=== PATIENT | female | born 1950 | race Caucasian/White ===

== ENCOUNTER 2018-07-05 06:13 | Day surgery (SDC) | payer BC, SELFPAY ==
[2018-07-05 06:17] VITALS: BP 138/93; PULSE 72; RESP 17; TEMP 36.5; O2SAT 100
--- NOTE | 2018-07-05 06:37 | W.COLOREPORT ---
Date of service: 07/05/18 Colonoscopy Report Date of procedure: 07/05/18 Pre-op diagnosis general: Screening for colon cancer Post-op diagnosis procedure note: other (polyps) Procedure: Colonoscopy with polypectomy by forceps and snare Surgeon: Marga Mg Anesthesia proc note operative: MAC (Suly Hayes CRNA) Estimated blood loss (mL): 5 Pathology: other (polyps x2) Complications: None Disposition: same day Indications: Mrs. Walters is a pleasant 67 year old female who was seen in the office for a screening colonoscopy. Risks, benefits and complications were reviewed with her and she wished to proceed. No guarantees were given or implied. Prep: Miralax/Dulcolax Procedure Start Time: 07:47 Procedure End Time: 08:09 Retraction Time: 17 minutes Findings: 2 polyps removed. One in the sigmoid colon and one in the rectum just above the dentate line Procedure Description: After informed consent was obtained the patient was taken to the procedure room and placed in a left decubitous position. Monitors were applied and a time out was done. The patients name, date of , procedure, allergies to medications and metal in their body was reviewed. The patient was then sedated. Once sedated and comfortable a rectal exam was done. External exam was normal. Internal exam revealed a normal sphincter tone and no palpable masses. The scope was then introduced and retroflexed. No internal hemorrhoids were identified. An adenomatous polyp was identified just above the dentate line. The scope was straightened and then advanced to the cecum without difficulty. The TI and appendiceal orifice were identified. The prep was adequate. The scope was then slowly retracted over 17 minutes back into the rectum. 2 polyps were removed. One in the sigmoid colon with forceps and one in the rectum with a snare. The scope was removed and the patient was woken up and taken back to Same day surgery in stable condition. The patient tolerated the procedure well and there were no immediate complications. Follow up: The patient should follow up in 3-5 years depending on final pathology unless they develop changes in bowel habits or other new gastrointestinal complaints.
--- NOTE | 2018-07-05 06:42 | PDOC.DSDIS_ITS ---
Discharge Plan Disposition Patient Disposition: HOME Condition: Fair Discharge Details Reason For Visit: SCREENING Attending Provider: Marga Mg Primary Care Provider: Dolores Fajardo Home Meds and New Rx's Prescriptions: Continue AEROCHAMBER 1 EACH spacer 1 ea Miscellaneous DIRECTED RF: 0 albuterol sulfate [ProAir HFA] 8.5 GM HFA aerosol inhaler 1 - 2 puff Inhalation Q4H PRN Qty: 2 RF: 6 ranitidine HCl 300 MG tablet 300 mg PO DAILY Qty: 30 RF: 2 levothyroxine 75 MCG tablet 75 mcg PO DIRECTED Qty: 24 RF: 4 levothyroxine 88 MCG tablet 88 mcg PO DIRECTED Qty: 75 RF: 4 lisinopril 10 MG tablet 5 mg PO DAILY Qty: 45 RF: 4 valacyclovir 500 MG tablet 500 mg PO BID PRNQty: 30 RF: 6 aspirin [Aspir-81] 81 MG tablet,delayed release (DR/EC) 81 mg PO HS RF: 0 citalopram 10 MG tablet 10 mg PO DAILY Qty: 30 RF: 2 triamcinolone acetonide 15 GM cream 15 gm Topical DAILY PRNQty: 1 RF: 1 Discharge Instructions Instructions: Colonoscopy (DC), Colorectal Polyps (DC), Diverticulosis (DC) Additional Instructions: Findings: 1. Moderate sigmoid diverticulosis 2. 2 polyps Follow up: depends on final pathology New Medications: none Diet: high fiber Please call if you develop: Fevers >101.5 Nausea or Vomiting Abdominal pain that is not transient 1. Because there will be medication in your system for the next 24 hours, you may feel a little sleepy. Your coordination will be affected. Therefore: a. Do not drive or operate dangerous equipment for 24 hours. b. Do not drink alcohol beverages for 24 hours (not even beer). c. Plan to go home and rest for the day. 2. Generally there are no restrictions on your activity after a day or so has gone by, but you may feel a bit fatigued for a few days. 3 After you arrive home you may have a light meal and return to a normal diet as you can tolerate it without feeling sick to your stomach. 4. After surgery, you may feel pain or discomfort. This should be only transient , but if it persists please contact your doctor. 5. If there are any questions regarding the findings of your procedure, please feel free to contact your doctor. 6. If you are unable to contact your doctor with a problem, contact the hospital at [phone]. 7. Continue all your regular medications unless directed otherwise. I understand the above instructions and have no questions. Signature of Patient or Responsible Adult Escort Date/Time Name of Responsible Adult Escort Signature of Nurse Date/Time Stand Alone Forms: Scarlet Chew (DSU) Print Language: Venezuelan Activity:: Activity as Tolerated Diet:: high fiber Discharge Orders Discharge Orders: Discharge Order (Routine); Ordered 07/05/18 Ordered By: Marga Mg
[2018-07-05] MEDS: Lactated Ringers 1,000 ML 75 ML IV (06:55)
--- NOTE | 2018-07-05 07:50 | BOWEL_PTH ---
PATIENT: Lorenza Walters LOC: [facility] U#:[id number] AGE/SX: 67/F ROOM: RE07/05/[address]: Marga Mg MD : 1950 BED: DIS: 07/05/2018 SPEC #: [id number] RECD: 07/05/18 12:33 STATUS: JOHNNA RE #: [id number] JENA: 07/05/18 07:[address]: Marga Mg DEPT: Surgical Specimen RECD BY: Una Tuttle ENTERED: 07/05/18 12:34 SP TYPE: Bowel OTHR DR: Dolores Fajardo MD Tissues: 1 - BIOPSY BOWEL 2 - BIOPSY BOWEL Procedures: GROSS AND MICRO LEVEL 4 Comments: [id number]
[2018-07-05 08:40] VITALS: BP 127/81; PULSE 70; RESP 16; TEMP 36.1; O2SAT 99
== END 2018-07-05 09:35 | disposition home or self-care (01) ==
PROVIDERS: PCP Family Medicine; Visit Provider Surgery
PROC: 0DJD8ZZ Inspection of Lower Intestinal Tract, Via Natural or Artificial Opening Endoscopic (ICD-10-PCS; CPT 45378; principal; 2018-07-05 07:30)
DX: Z12.11 Encounter for screening for malignant neoplasm of colon (principal); K62.1 Rectal polyp; K63.5 Polyp of colon; I10 Essential (primary) hypertension
CPT/HCPCS: 45380; 88305; J2405

== ENCOUNTER 2018-11-30 10:17 | Day surgery (SDC) | payer BC, SELFPAY ==
--- NOTE | 2018-11-30 06:54 | W.COLOREPORT ---
Date of service: 11/30/18 Time of Service: 11:27 Colonoscopy Report Date of procedure: 11/30/18 Pre-op diagnosis general: Hx of polyp with dysplacia Post-op diagnosis procedure note: same (normal sigmoidoscopy) Procedure: Flexible sigmoidoscopy Surgeon: Marga Mg Anesthesia proc note operative: MAC (Gab Mcgee, PARACHUTE PANEL JOINER/ ASA 2) Estimated blood loss (mL): 0 Pathology: none sent Complications: None Disposition: same day Indications: Mrs. Walters is a pleasant 68 year old female who has a history of a rectal polyp with dysplacia and was seen for a repeat flexible sigmoidoscopy. Risks, benefits and complications have been reviewed. Complications include but are not limited to bleeding, pain, perforation, missed small lesion/polyp, sore throat, aspiration and adverse reaction to the medications. Questions were entertained and answered to their satisfaction and they wished to proceed. No guarantees were given or implied. Prep: Other Procedure Start Time: 11:27 Procedure End Time: 11:36 Retraction Time: 9 minutes Findings: mild diverticulosis no polyps Procedure Description: After informed consent was obtained the patient was taken to the procedure room and placed in a left decubitous position. Monitors were applied and a time out was done. The patients name, date of , procedure, allergies to medications and metal in their body was reviewed. The patient was then sedated. Once sedated and comfortable a rectal exam was done. External exam was normal. Internal exam revealed a normal sphincter tone and no palpable masses. The scope was then introduced and retro-flexed. No internal hemorrhoids were identified. The scope was then advanced to the transverse colon without difficulty. The prep was good. The scope was then slowly retracted over 9 minutes back into the rectum. No polyps were identified. Mild diverticulosis in the sigmoid colon was identified. The scope was removed and the patient was woken up and taken back to Same day surgery in stable condition. The patient tolerated the procedure well and there were no immediate complications. Follow up: The patient should follow up in 2 years unless they develop changes in bowel habits or other new gastrointestinal complaints.
--- NOTE | 2018-11-30 06:59 | PDOC.DSDIS_ITS ---
Discharge Plan Disposition Patient Disposition: HOME Condition: Good Discharge Details Reason For Visit: Hx of polyps Attending Provider: Marga Mg Primary Care Provider: Dolores Fajardo Home Meds and New Rx's Prescriptions: Continued citalopram 10 mg tablet 10 mg PO DAILY Qty: 90 RF: 2 AEROCHAMBER 1 EACH spacer 1 ea Miscellaneous DIRECTED RF: 0 valacyclovir 500 MG tablet 500 mg PO BID PRNQty: 30 RF: 6 aspirin [Aspir-81] 81 MG tablet,delayed release (DR/EC) 81 mg PO HS RF: 0 triamcinolone acetonide 15 GM cream 15 gm Topical DAILY PRNQty: 1 RF: 1 ranitidine HCl 300 mg tablet 300 mg PO DAILY PRNQty: 30 RF: 2 levothyroxine 88 mcg tablet 88 mcg PO DIRECTED Qty: 75 RF: 4 levothyroxine 75 mcg tablet 75 mcg PO DIRECTED Qty: 24 RF: 4 lisinopril 10 mg tablet 5 mg PO DAILY Qty: 45 RF: 4 ProAir HFA 90 mcg/actuation HFA aerosol inhaler 1 - 2 puff Inhalation Q4H PRN PRNRF: 0 acetaminophen [Tylenol Extra Strength] 500 mg Tablet 1,000 mg PO RF: 0 Discontinued Fleet Enema 19-7 gram/118 mL enema 118 ml MI ONCE Qty: 118 RF: 0 Discharge Instructions Instructions: Flexible Sigmoidoscopy (DC) Additional Instructions: Findings: mild diverticulosis No polyps Follow up: 2 years Please call if you develop: fevers >101.5 Nausea or Vomiting Abdominal pain that is not transient DAY SURGERY UNIT POST COLONOSCOPY INSTRUCTIONS 1. Because there will be medication in your system for the next 24 hours, you may feel a little sleepy. Your coordination will be affected. Therefore: a. Do not drive or operate dangerous equipment for 24 hours. b. Do not drink alcohol beverages for 24 hours (not even beer). c. Plan to go home and rest for the day. 2. Generally there are no restrictions on your activity after a day or so has gone by, but you may feel a bit fatigued for a few days. 3 After you arrive home you may have a light meal and return to a normal diet as you can tolerate it without feeling sick to your stomach. 4. After surgery, you may feel pain or discomfort. This should be only transient , but if it persists please contact your doctor. 5. If there are any questions regarding the findings of your procedure, please feel free to contact your doctor. 6. If you are unable to contact your doctor with a problem, contact the hospital at [phone]. 7. Continue all your regular medications unless directed otherwise. I understand the above instructions and have no questions. Signature of Patient or Responsible Adult Escort Date/Time Name of Responsible Adult Escort Signature of Nurse Date/Time Activity:: Activity as Tolerated Diet:: As Tolerated Discharge Orders Discharge Orders: Discharge Order (Routine); Ordered 11/30/18 Ordered By: Marga Mg DS: Diagnosis Discharge Diagnosis (1) H/O flexible sigmoidoscopy: Status: Acute (2) High grade dysplasia in colonic adenoma: Status: Acute
[2018-11-30 10:38] VITALS: BP 138/90; PULSE 77; RESP 16; TEMP 36.1; O2SAT 95
[2018-11-30] MEDS: Lactated Ringers 1,000 ML 80 ML IV (11:00)
[2018-11-30 12:08] VITALS: BP 129/81; PULSE 63; RESP 16; TEMP 35.8; O2SAT 97
== END 2018-11-30 12:37 | disposition home or self-care (01) ==
LOC: SUR 10:17
PROVIDERS: PCP Family Medicine; Visit Provider Surgery
PROC: 0DJD8ZZ Inspection of Lower Intestinal Tract, Via Natural or Artificial Opening Endoscopic (ICD-10-PCS; CPT 45330; principal; 2018-11-30 09:45)
DX: Z09 Encounter for follow-up examination after completed treatment for conditions other than malignant neoplasm (principal); Z86.010 Personal history of colon polyps; I10 Essential (primary) hypertension; K57.30 Diverticulosis of large intestine without perforation or abscess without bleeding
CPT/HCPCS: 45330

== ENCOUNTER 2019-01-27 01:05 | Outpatient (CLI) | payer BC, SELFPAY ==
[2019-01-27 12:21] LABS: ALT 24 U/L (12-78); AST 19 U/L (15-37); Albumin 3.6 g/dL (3.4-5.0); Alkaline Phosphatase 57 U/L (46-116); Anion Gap 6.3 mmol/L (3-11); BUN 17 mg/dL (7-18); Bilirubin, Total 0.6 mg/dL (0.2-1.0); CO2 31.7 mmol/L (21.0-32.0); CREATININE 1.09 mg/dL (0.55-1.02); Calcium 8.9 mg/dL (8.5-10.1); Chloride 106 mmol/L (98-107); Cholesterol 228 mg/dL (50-200); Estimated GFR 50.07 (mL/min/1.73m2); Glucose 91 mg/dL (70-100); HDL Cholesterol 55 mg/dL (40-60); LDL CHOLESTEROL 150 mg/dL (<100); Potassium 4.6 mmol/L (3.5-5.1); Sodium 144 mmol/L (136-145); TSH 0.48 uIU/mL (0.358-3.74); Total Protein 6.5 g/dL (6.4-8.2); Triglyceride 60 mg/dL (30-150)
== END 2019-01-27 01:25 ==
PROVIDERS: PCP Family Medicine; Visit Provider Family Medicine
DX: I10 Essential (primary) hypertension (principal); E03.9 Hypothyroidism, unspecified
CPT/HCPCS: 36415; 80053; 80061; 83721; 81003; 84443

== ENCOUNTER 2019-02-14 14:03 | Outpatient (CLI) | payer BC, SELFPAY ==
--- NOTE | 2019-02-14 13:00 | DI.RAD_ITS ---
SYMPTOMS/DIAGNOSIS: FALL ON LT HAND, PAIN FINGERS 3 AND 4, S69.92XA LEFT RING FINGER: Three views. There is a nondisplaced fracture of the volar aspect of the base of the middle phalanx of the left ring finger. There is soft tissue swelling in this region. The patient has a ring on which obscures a portion of the proximal phalanx. No radiopaque foreign bodies are seen in the soft tissues. IMPRESSION: Nondisplaced fracture involving the volar aspect of the base of the middle phalanx of the left ring finger. LEFT MIDDLE FINGER: Three views. There is a minimally displaced fracture involving the volar aspect of the base of the middle phalanx of the left middle finger. There is associated soft tissue swelling. No radiopaque foreign bodies are seen in the soft tissues. IMPRESSION: Mildly displaced fracture involving the anterior aspect of the base of the middle phalanx of the left middle finger.
== END 2019-02-14 14:23 ==
PROVIDERS: PCP Family Medicine; Visit Provider Family Medicine
DX: M79.645 Pain in left finger(s) (principal); S62.643A Nondisplaced fracture of proximal phalanx of left middle finger, initial encounter for closed fracture; S62.623A Displaced fracture of middle phalanx of left middle finger, initial encounter for closed fracture; W19.XXXA Unspecified fall, initial encounter
CPT/HCPCS: 73140

== ENCOUNTER 2019-02-16 00:20 | Outpatient (CLI) | payer BC, SELFPAY ==
--- NOTE | 2019-02-16 07:30 | DI.MAMMO_ITS ---
SYMPTOM/DIAGNOSIS: SCREENING, Z12.31 MAMMOGRAMS: Mammograms were interpreted according to the usual protocol including computer analysis with CAD system, tomosynthesis and C view imaging. Comparison is made with prior examinations. Breast density, Category C. No suspicious masses or microcalcifications are seen. There is no definite evidence of malignancy. IMPRESSION: Negative mammogram. Routine screening is recommended. Category 1. MQSA ASSESSMENT OF FINDINGS: Negative. Category 1. Patient will receive a letter notifying them of these results. Bi-RADS category C. The breasts are heterogeneously dense, which may obscure small masses.
== END 2019-02-16 00:40 ==
PROVIDERS: PCP Family Medicine; Visit Provider Family Medicine
DX: Z12.31 Encounter for screening mammogram for malignant neoplasm of breast (principal)
CPT/HCPCS: 77063; 77067

== ENCOUNTER 2019-05-16 10:15 | Outpatient (CLI) | payer BC, SELFPAY ==
--- NOTE | 2019-05-16 09:57 | DI.RAD_ITS ---
SYMPTOM/DIAGNOSIS: STIFFNESS OF LMF, LRF S/P INJURY IN JANUARY LEFT HAND: Three views. Comparison 02/14/19 There is a well corticated osseous density seen at the anterior aspect of the base of the middle phalanx of the left middle finger consistent with a nonunited fracture. This is unchanged compared to the prior examination. There is also a tiny osseous density seen at the anterior aspect of the base of the middle phalanx of the left ring finger. It does not appear to be united. No new fractures or dislocations are seen.
== END 2019-05-16 10:35 ==
PROVIDERS: PCP Family Medicine; Visit Provider Student in an Organized Health Care Education/Training Program
DX: M79.642 Pain in left hand (principal); M79.645 Pain in left finger(s); M25.642 Stiffness of left hand, not elsewhere classified; S62.613 Displaced fracture of proximal phalanx of left middle finger
CPT/HCPCS: 73130

== ENCOUNTER 2019-08-03 15:47 | Outpatient (REF) | payer BC, SELFPAY ==
[2019-08-03 11:21] LABS: Bilirubin Negative (Negative); Blood Trace-intact (Negative); Clarity Clear (Clear); Glucose Negative (Negative); Ketones Negative (Negative); Leukocyte Esterase Negative (Negative); Nitrite Negative (Negative); Specific Gravity 1.015 (1.005-1.025); Urobilinogen 0.2 EU/dL (Up TO 0.2); pH 7.5 (5-8)
[2019-08-03 11:29] LABS: Bacteria Rare HPF (Negative); C & S Indicated? C&S Done As Ordered; Casts Negative LPF (Negative); Crystals Negative HPF (Negative); Epithelial Cells Rare HPF (Negative); Mucus Negative (Negative); WBC 0-2 HPF (0-5)
== END 2019-08-03 16:07 ==
LOC: LBN 15:47
PROVIDERS: PCP Family Medicine; Visit Provider Family Medicine
DX: R31.9 Hematuria, unspecified (principal)
CPT/HCPCS: 81003; 81015; 87086

== ENCOUNTER 2019-08-04 00:37 | Outpatient (CLI) | payer BC, SELFPAY ==
--- NOTE | 2019-08-04 12:49 | DI.US_ITS ---
EXAM: US RENAL CLINICAL HISTORY: microhematuria/left flank pain, R31.9 TECHNIQUE: Ultrasound performed using standard protocol. COMPARISON: No exams were available for comparison FINDINGS: The right kidney measures 9.1 cm in length. The left kidney measures 10.1 cm in length. There is a smoothly marginated nonshadowing hyperechoic lesion in the mid right kidney measuring 11 x 9 millim eters. This likely represents an incidental angiomyolipoma. No stones, hydronephrosis or suspicious masses are seen. The prevoid bladder volume measures 197 cc's. No bladder mass or bladder calcific ation is seen. There is no visible bladder wall thickening. Both ureteral jets were visualized. Th e postvoid residual is 14 cc's. IMPRESSION: Small right angiomyolipoma. No evidence of calcification, hydronephrosis or suspicious masses.
== END 2019-08-04 00:57 ==
PROVIDERS: PCP Family Medicine; Visit Provider Family Medicine
DX: R31.29 Other microscopic hematuria (principal); R10.32 Left lower quadrant pain; N28.89 Other specified disorders of kidney and ureter; D17.71 Benign lipomatous neoplasm of kidney
CPT/HCPCS: 76770

== ENCOUNTER 2019-10-03 08:59 | Day surgery (SDC) | payer BC, SELFPAY ==
--- NOTE | 2019-10-03 09:09 | HPE_ITS ---
Date of service: 10/03/19 Time of Service: 09:09 Assessment and Plan Assessment and plan (1) Microscopic hematuria: Status: Acute Assessment and plan: We will move ahead with cystoscopy and retrograde pyelogram to complete her hematuria workup. We will be prepared to do a TURBT if a bladder lesion is discovered. History of Present Illness Narrative: Urology Clinic Visit PATIENT NAME: SHANTE MENDEZ MUNIT #: [id number] ADMITTING PROVIDER: Kylie Calixto NPACCOUNT #: [id number] PRIMARY CARE PROVIDER:CARIN FAJARDO MD DATE OF ADMIT: 09/20/19 : 1950 HPI HPI Shante is a 68-year-old female referred to urology by Dr. Fajardo for microscopic hematuria. Patient reports that there has been a history of her having microscopic hematuria for quite a few years. She has never seen gross hematuria or clots. She denies urinary frequency, urgency, dysuria, or suprapubic discomfort. She does have a history of left flank pain for multiple years. She recently had an R US done by her PCP. She will have bouts of urinary incontinence that is related to stress incontinence of coughing or sneezing. She notes a history of having a kidney infection when she was in grade school. She is had a few bladder infections in her adult years. 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 Allergies Reviewed elsewhere in the chart Medications Reviewed elsewhere in the chart Family Hx No known family history of urological cancers or concerns Review of Systems Const: Denies chills, fatigue, fever(s) or weight loss Card: Denies chest pain or dyspnea Resp: Denies dyspnea GI: Denies abdominal pain, constipation or diarrhea : Reports urinary incontinence; Denies hematuria, urinary frequency, nocturia, dysuria, flank pain, urinary hesi tancy or urinary urgency Endo: Denies fatigue Exam Const Orientation: alert, awake and oriented x3 Other: VS reviewed that were done by nurse Eyes Sclera: sclerae normal Resp Effort & Inspection: normal respiratory effort GI Inspection: normal to inspection and non-distended Extrem General: full ROM PFSH Social History Smoking/Tobacco Use Status: Former Tobacco Use Quit Date: 10/19/99 Tobacco: How many years used: 15 Alcohol Intake: current Alcohol Intake frequency: a few times a month Alcohol type: wine Drug use: Never Substance use type: does not use Caregiver/Support person: No Household members: spouse 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 Pets and animals: Yes Pets and animals: fish Sexually active: Yes Do you think of yourself as: straight/heterosexual Current gender identity: female What is your relationship status?: How often do you talk on the phone with friends or family?: three or more times per week How often do you get together with friends or relatives?: three or more times per week How often do you attend adventist or hoahaoism services?: decline to answer Do you belong to any clubs or organized social groups?: no Panel score (0-1 are the most socially isolated patients): 2 What type of physical activity do you participate in: walking Duration: 15-30 minutes/day Frequency: 1-2 times per week Christy/Presybeterian: Congregational Special christy needs: No Seatbelt use: always Drive intox or ride w/intox catering truck driver: No Do you feel safe at home: Yes Do you feel safe in your relationship?: Yes Meds Home Medications and Allergies Home Medications Medication Instructions Recorded Confirmed Type Aerochamber 1 ea MISCELLANEOUS DIRECTED 08/23/13 08/03/19 History aspirin [Aspir-81] 81 mg PO HS 12/07/17 10/03/19 History triamcinolone acetonide 15 gm TOPICAL DAILY PRN #1 script 02/16/18 09/29/19 History albuterol sulfate [ProAir HFA] 1 - 2 puff INHALATION Q4H PRN PRN 11/26/18 10/03/19 History acetaminophen 500 mg tablet 1,000 mg PO PRN tab 01/26/19 09/29/19 History citalopram 10 mg tablet 10 mg PO DAILY #90 tab-cap 04/29/19 10/03/19 Rx varicella-zoster [id number] (PF) 50 0.5 ml IM ONCE #1 each 08/03/19 08/03/19 Rx mcg/0.5 mL IM susp, kit levothyroxine 75 mcg tablet 75 mcg PO .Sat and Sun #30 tab-cap 09/21/19 10/03/19 Rx levothyroxine 88 mcg tablet 88 mcg PO .Thu-Thursday #30 tab-cap 09/21/19 10/03/19 Rx lisinopril 10 mg tablet 5 mg PO DAILY #45 tab-cap 09/21/19 10/03/19 Rx valacyclovir 1 gram tablet 2,000 mg PO BID PRN #28 tab 09/24/19 10/03/19 Rx Allergies Allergy/AdvReac Type Severity Reaction Status Date / Time hydrocodone [From Vicodin] AdvReac Intermediate Nausea and Verified 09/29/19 16:10 vomiting oxycodone [From Percocet] AdvReac Intermediate nausea and Verified 09/29/19 16:10 vomitting Exam Narrative Exam Narrative: LUNGS CLEAR CARDIAC REGULAR RATE AND RHYTHM No other changes
[2019-10-03 09:24] VITALS: BP 147/83; PULSE 76; RESP 16; TEMP 36.5; O2SAT 97
[2019-10-03] MEDS: Lactated Ringers 1,000 ML 80 ML IV (09:44)
[2019-10-03] MEDS: ceFAZolin 1 GM/50 ML BAG IVPB (09:52)
[2019-10-03] MEDS: Lidocaine 2% Jelly 6 ML SYR (09:59)
[2019-10-03] MEDS: Omnipaque 300 MG/ML 50 ML BTL (10:09)
--- NOTE | 2019-10-03 10:17 | W.PM.DSUDISC ---
Discharge Plan Disposition Patient Disposition: HOME Condition: Stable Discharge Details Attending Provider: Juan Francisco Chen Primary Care Provider: Dolores Fajardo Home Meds and New Rx's Prescriptions: No Action Shingrix (PF) 50 mcg/0.5 mL suspension for reconstitution 0.5 ml IM ONCE Qty: 1 RF: 1 AEROCHAMBER 1 EACH spacer 1 ea Miscellaneous DIRECTED RF: 0 aspirin [Aspir-81] 81 MG tablet,delayed release (DR/EC) 81 mg PO HS RF: 0 triamcinolone acetonide 15 GM cream 15 gm Topical DAILY PRNQty: 1 RF: 1 citalopram 10 mg tablet 10 mg PO DAILY Qty: 90 RF: 4 levothyroxine 75 mcg tablet 75 mcg PO .Sat and Thu Qty: 30 RF: 4 levothyroxine 88 mcg tablet 88 mcg PO .Thu-Thursday Qty: 30 RF: 4 lisinopril 10 mg tablet 5 mg PO DAILY Qty: 45 RF: 4 valacyclovir 1 gram tablet 2,000 mg PO BID PRN (Reason: cold sores) Qty: 28 RF: 1 albuterol sulfate [ProAir HFA] 90 mcg/actuation HFA aerosol inhaler 1 - 2 puff Inhalation Q4H PRN PRNRF: 0 acetaminophen [Tylenol Extra Strength] 500 mg tablet 1,000 mg PO PRN RF: 0 Discharge Instructions Additional Instructions: F/U 1 year for urinalysis Activity:: Activity as Tolerated Shower/Bathe:: 24 hours Diet:: As Tolerated Discharge Orders Discharge Orders: Discharge Order (Routine); Ordered 10/03/19 Ordered By: Juan Francisco Chen DS: Diagnosis Discharge Diagnosis (1) Microscopic hematuria: Status: Acute
--- NOTE | 2019-10-03 10:47 | DI.RAD_ITS ---
EXAM: XR RETROGRADE IN OR CLINICAL HISTORY: bilateral retrograde, MICROSCOPIC HEMATURIA TECHNIQUE: Fluoroscopy was provided for the referring physician for guidance with performing retrogr titus urography procedure. COMPARISON: No exams were available for comparison FINDINGS: Please see procedure note for details. FLUORO TIME: 26.8 seconds
[2019-10-03 11:30] VITALS: BP 135/81; PULSE 65; RESP 16; O2SAT 98
--- NOTE | 2019-10-03 12:01 | ROE_ITS ---
DATE OF PROCEDURE: October 03, 2019 PREOPERATIVE DIAGNOSIS: Microscopic hematuria. POSTOPERATIVE DIAGNOSIS: Same. PROCEDURE: Cystoscopy with bilateral retrograde pyelograms. SURGEON: Juan Francisco Chen M.D. ANESTHESIA: Monitored Anesthesia Care with local. COMPLICATIONS: None. FINDINGS: No significant uropathology. HISTORY: This is a 68-year-old woman who has a history of microscopic hematuria. She was evaluated with a renal ultrasound which showed no solid renal masses and no hydronephrosis. She presents now f or a cystoscopy with retrograde pyelogram to complete her hematuria workup. OPERATIVE REPORT: The patient was brought to the operating room on 10/03/19. After successful induc tion of monitored anesthesia care, she was placed in the dorsal lithotomy position. Her genitalia wa s prepped and draped. 2% Xylocaine jelly was instilled into the urethra to act as a local anesthetic . A 22 Swedish rigid cystoscope was passed through the urethra into the bladder. The bladder was inspec lana using both a 30 and a 70-degree lens. The base of the bladder had descended somewhat, consistent with a cystocele. Both ureteral orifices were identified. Each showed no surrounding erythema and no bloody urine coming from either side. The bladder wall was smooth with no papillary or nodular lesions. No ulcerations were seen. Each ureteral orifice was then cannulated with a 6 Swedish access catheter. Retrograde films were obt ained by injecting Omnipaque through the access catheter under fluoroscopic guidance. Both ureters and collecting systems appeared normal. Both sides drained promptly on 5-minute drainag e films. Based on today's examination there is no sign of significant uropathology. The current AUA recommend ation includes yearly urinalyses and a repeat workup in 3 to 5 years if microscopic hematuria persist s on her yearly exams. She tolerated the procedure well with no complications. cc: Dolores Fajardo M.D.
== END 2019-10-03 11:35 | disposition home or self-care (01) ==
PROVIDERS: PCP Family Medicine; Visit Provider Urology
PROC: (CPT 74450; principal; 2019-10-03 09:45)
DX: R31.29 Other microscopic hematuria (principal); N81.10 Cystocele, unspecified
CPT/HCPCS: 52005; 76000; NC; 74420; J0690; J1885; J2405; Q9967

== ENCOUNTER 2019-10-13 13:25 | Outpatient (CLI) | payer BC, SELFPAY ==
--- NOTE | 2019-10-13 13:00 | DI.RAD_ITS ---
EXAM: XR RIBS LT W PA LAT CHEST INDICATION: RIB PAIN, CONTUSION OF RIB, S20.219A. COMPARISON: No exams were available for comparison TECHNIQUE: 2D digital imaging was performed. FINDINGS: Heart size and pulmonary vasculature are within normal limits. The lungs are clear. No effusion or pneumothorax is identified. No rib fractures identified. Degenerative changes are seen in the spine . IMPRESSION: No acute pulmonary process. No evidence of a rib fracture.
== END 2019-10-13 13:45 ==
PROVIDERS: PCP Family Medicine; Visit Provider Nurse Practitioner
DX: R07.81 Pleurodynia (principal); S20.219A Contusion of unspecified front wall of thorax, initial encounter
CPT/HCPCS: 71046; 71100

== ENCOUNTER 2020-03-28 01:00 | Outpatient (CLI) | payer BC, SELFPAY ==
--- NOTE | 2020-03-28 08:25 | DI.MAMMO_ITS ---
EXAM: MG MAMMO SCREENING CLINICAL HISTORY: screening,Z12.39 TECHNIQUE: Bilateral full field digital CC and MLO mammographic images were obtained with 3D tomosyn thesis and utilizing computer aided detection (CAD). COMPARISON: Available for comparison. FINDINGS: Masses/Architectural Distortion: None seen. Microcalcifications: No suspicious pleomorphic-type are seen. Skin Thickening/Nipple Retraction: None. IMPRESSION: 1. No significant interval change with no specific features of malignancy noted. 2. Unless there is more urgent need, screening mammography is recommended, as per [employer] [place] [employer] guidelines. BI-RADS Category 1 - Negative Breast Density - Category C - Heterogeneously dense The mammogram demonstrates the patient's breast tissue is dense. Dense breast tissue is very common a nd is not abnormal but dense breast tissue can make it harder to find cancer on a mammogram. Also, de nse breast tissue may increase their breast cancer risk. This information about the result of the [facility] mogram report was provided to the patient to raise their awareness. Use this report when you speak wi th the patient about their risks for breast cancer, which includes their family history. At that time , you may recommend for more screening tests (Ultrasound or MRI) as they might be useful based on the ir risk. A negative radiographic report should not delay biopsy if a dominant or clinically suspicious mass is present. Up to ten percent of cancers are not identified on mammography. A negative report may reinforce clinical impression. Adenosis and dense breasts may obscure an underlying neoplasm. False positive reports average 6 to 10%. Patient will receive a letter notifying them of these results.
== END 2020-03-28 01:20 ==
PROVIDERS: PCP Family Medicine; Visit Provider Nurse Practitioner
DX: Z12.31 Encounter for screening mammogram for malignant neoplasm of breast (principal)
CPT/HCPCS: 77063; 77067

== ENCOUNTER 2020-05-24 14:13 | Outpatient (REF) | payer BC, SELFPAY ==
[2020-05-24 15:38] LABS: Bilirubin Negative (Negative); Blood Moderate (Negative); Clarity Clear (Clear); Glucose Negative (Negative); Ketones Negative (Negative); Leukocyte Esterase Moderate (Negative); Nitrite Negative (Negative); Specific Gravity 1.015 (1.005-1.025); Urobilinogen 0.2 EU/dL (Up TO 0.2)
[2020-05-24 15:58] LABS: Bacteria Moderate HPF (Negative); C & S Indicated? C&S Done As Ordered; Casts Negative LPF (Negative); Crystals Negative HPF (Negative); Epithelial Cells Few HPF (Negative); Mucus Negative (Negative); WBC 20-50 HPF (0-5)
== END 2020-05-24 14:33 ==
LOC: LBN 14:13
PROVIDERS: PCP Family Medicine; Visit Provider Family Medicine
DX: R30.0 Dysuria (principal)
CPT/HCPCS: 87077; 81003; 81015; 87086; 87186

== ENCOUNTER 2020-12-18 03:06 | Outpatient (CLI) | payer BC, SELFPAY ==
[2020-12-18 09:16] LABS: Anion Gap 6.3 mmol/L (3-11); BUN 17 mg/dL (7-18); CO2 29.7 mmol/L (21.0-32.0); Calcium 8.7 mg/dL (8.5-10.1); Calculated LDL 63 mg/dL (<100); Chloride 109 mmol/L (98-107); Cholesterol 133 mg/dL (<200); Estimated GFR 54.97 (mL/min/1.73m2); Glucose 96 mg/dL (74-106); HDL Cholesterol 54 mg/dL (40-60); Potassium 4.2 mmol/L (3.5-5.1); Sodium 145 mmol/L (136-145); TSH 0.65 uIU/mL (0.36-3.74); Triglyceride 80 mg/dL (<150)
== END 2020-12-18 03:07 | disposition home or self-care (01) ==
LOC: LBO 03:06
PROVIDERS: PCP Family Medicine; Visit Provider Family Medicine
DX: E03.9 Hypothyroidism, unspecified (principal); I10 Essential (primary) hypertension; E78.5 Hyperlipidemia, unspecified
CPT/HCPCS: 36415; 80048; 80061; 84443

== ENCOUNTER 2021-01-28 15:06 | Outpatient (CLI) | payer OTHER, SELFPAY ==
--- NOTE | 2021-01-28 14:45 | DI.RAD_ITS ---
EXAM: XR SHOULDER RT COMPLETE 2+V CLINICAL HISTORY: acute shoulder pain. TECHNIQUE: 2D digital imaging was performed. COMPARISON: No exams were available for comparison FINDINGS: There is no evidence of fracture nor dislocation of the glenohumeral joint. No abnormal soft tissue calcifications. No degenerative narrowing of the joint. There is, however, slight offset of the AC joint noted on the Grashey view, possibly significant. Correlation with site of tenderness is recomm ended. Bone density normal. No osseous lesions. Sign rib IMPRESSION: DATA REPOSITORY: RADIATION DOSE DELIVERED:
== END 2021-01-28 15:07 | disposition home or self-care (01) ==
LOC: DIORS 15:06
PROVIDERS: PCP Family Medicine; Referring Provider Family Medicine; Visit Provider Physician Assistant Surgical
DX: M25.511 Pain in right shoulder (principal)
CPT/HCPCS: 73030

== ENCOUNTER 2021-02-01 02:04 | Outpatient (CLI) | payer BC, SELFPAY ==
[2021-02-01 10:05] LABS: Source Nasal/Nares
[2021-02-01 13:58] LABS: COVID-19 PCR Negative (Negative)
== END 2021-02-01 02:05 | disposition home or self-care (01) ==
LOC: LBO 02:04
PROVIDERS: PCP Family Medicine; Visit Provider Surgery
DX: Z20.822 Contact with and (suspected) exposure to COVID-19 (principal); Z01.818 Encounter for other preprocedural examination
CPT/HCPCS: 87635

== ENCOUNTER 2021-02-04 06:22 | Day surgery (SDC) | payer BC, SELFPAY ==
--- NOTE | 2021-02-04 06:31 | COLE_ITS ---
Date of service: 02/04/21 Time of Service: 07:26 Colonoscopy Report Date of procedure: 02/04/21 Pre-op diagnosis general: Hx of polyps Post-op diagnosis procedure note: same (mild diverticulosis) Procedure: Colonoscopy Surgeon: Marga Mg Anesthesia Type: General:No Airway Estimated blood loss (mL): 0 Pathology: none sent Complications: None Disposition: same day Indications: Lorenza is a pleasant 70-year-old female who has had a couple of colonoscopies and a sigmoidoscopy. In 2017 she had a serrated adenoma with high-grade focal dysplasia. In 2018 she had a adenomatous polyp with low-grade dysplasia. Flexible sigmoidoscopy in 2019 was normal. She denies any changes in bowel habits, melena, hematochezia, weight loss. She has been having some mild abdominal discomfort in the left lower quadrant. We discussed the procedure in detail again as well as the prep. She was able to tolerate the prep last time without any issues. We also discussed Covid testing prior to the procedure. She does not have to quarantine prior to the procedure. Risks, benefits and complications have been reviewed. Complications include but are not limited to bleeding, pain, perforation, missed small lesion/polyp, sore throat, aspiration and adverse reaction to the medications. Questions were entertained and answered to their satisfaction and they wished to proceed. No guarantees were given or implied. COVID-19 testing explained to the patient. Reason for test reviewed. Quarantine per state requirements reviewed with patient. Patient understands and agrees to testing. Prep: Miralax/Dulcolax Procedure Start Time: 07:26 Procedure End Time: 07:45 Retraction Time: 15 minutes Findings: Lorenza is a pleasant 70-year-old female who has had a couple of colonoscopies and a sigmoidoscopy. In 2017 she had a serrated adenoma with high-grade focal dysplasia. In 2018 she had a adenomatous polyp with low-grade dysplasia. Flexible sigmoidoscopy in 2019 was normal. She denies any changes in bowel habits, melena, hematochezia, weight loss. She has been having some mild abdominal discomfort in the left lower quadrant. We discussed the procedure in detail again as well as the prep. She was able to tolerate the prep last time without any issues. We also discussed Covid testing prior to the procedure. She does not have to quarantine prior to the procedure. Risks, benefits and complications have been reviewed. Complications include but are not limited to bleeding, pain, perforation, missed small lesion/polyp, sore throat, aspiration and adverse reaction to the medications. Questions were entertained and answered to their satisfaction and they wished to proceed. No guarantees were given or implied. COVID-19 testing explained to the patient. Reason for test reviewed. Quarantine per state requirements reviewed with patient. Patient understands and agrees to testing. Procedure Description: After informed consent was obtained the patient was taken to the procedure room and placed in a left decubitous position. Monitors were applied and a time out was done. The patients name, date of , procedure, allergies to medications and metal in their body was reviewed. The patient was then sedated. Once sedated and comfortable a rectal exam was done. External exam was normal. Internal exam revealed a normal sphincter tone and no palpable masses. The scope was then introduced and retro-flexed. No internal hemorrhoids, polyps or masses were identified on retro-flexion. The scope was then advanced to the cecum without difficulty. The ileocecal vlave and appendiceal orifice were identified. The prep was good. The scope was then slowly retracted over 15 minutes back into the rectum. There were no polyps. There was mild diverticulosis noted of the sigmoid colon. The scope was removed and the patie nt was woken up and taken back to Same day surgery in stable condition. The patient tolerated the procedure well and there were no immediate complications. Follow up: The patient should follow up in 3 years, due to the history of polyps, unless they develop changes in bowel habits or other new gastrointestinal complaints.
--- NOTE | 2021-02-04 06:34 | W.PM.DSUDISC ---
Discharge Plan Disposition Patient Disposition: HOME Condition: Good Discharge Details Reason For Visit: colonoscopy Attending Provider: Marga Mg Primary Care Provider: Dolores Fajardo Home Meds and New Rx's Prescriptions: Continued AEROCHAMBER 1 EACH spacer 1 ea Miscellaneous DIRECTED RF: 0 aspirin [Aspir-81] 81 MG tablet,delayed release (DR/EC) 81 mg PO HS RF: 0 triamcinolone acetonide 15 GM cream 15 gm Topical DAILY PRNQty: 1 RF: 1 levothyroxine 75 mcg tablet 75 mcg PO .Sat and Thu Qty: 30 RF: 4 levothyroxine 88 mcg tablet 88 mcg PO .Thu-Thursday Qty: 30 RF: 4 citalopram 10 mg tablet 10 mg PO DAILY Qty: 90 RF: 4 valacyclovir 1 gram tablet 2,000 mg PO BID PRN (Reason: cold sores) Qty: 28 RF: 1 lisinopril 10 mg tablet 5 mg PO DAILY Qty: 45 RF: 4 atorvastatin 20 mg tablet 20 mg PO QHS Qty: 90 RF: 3 albuterol sulfate [ProAir HFA] 90 mcg/actuation HFA aerosol inhaler 1 - 2 puff Inhalation Q4H PRN PRNRF: 0 acetaminophen [Tylenol Extra Strength] 500 mg tablet 1,000 mg PO PRN RF: 0 Discontinued bisacodyl [Dulcolax (bisacodyl)] 5 mg tablet,delayed release (DR/EC) 5 mg PO ONCE Qty: 4 RF: 0 polyethylene glycol 3350 17 gram/dose powder 17 g PO ONCE Qty: 238 RF: 0 No Action Vitamin D (with calcium) 77-400 mg-unit Tablet PO DAILY RF: 0 Discharge Instructions Instructions: Diverticulosis (DC) Additional Instructions: Findings: mild sigmoid diverticulosis Follow up: 3 years due to the previous polyps Please call if you develop: fevers >101.5 Nausea or Vomiting Abdominal pain that is not transient DAY SURGERY UNIT POST ENDOSCOPY INSTRUCTIONS 1. Because there will be medication in your system for the next 24 hours, you may feel a little sleepy. Your coordination will be affected. Therefore: a. Do not drive or operate dangerous equipment for 24 hours. b. Do not drink alcohol beverages for 24 hours (not even beer). c. Plan to go home and rest for the day. 2. Generally there are no restrictions on your activity after a day or so has gone by, but you may feel a bit fatigued for a few days. 3 After you arrive home you may have a light meal and return to a normal diet as you can tolerate it without feeling sick to your stomach. 4. After surgery, you may feel pain or discomfort. This should be only transient, but if it persists please contact your doctor. 5. If there are any questions regarding the findings of your procedure, please feel free to contact your doctor. 6. If you are unable to contact your doctor with a problem, contact the hospital at [phone]. 7. Continue all your regular medications unless directed otherwise. I understand the above instructions and have no questions. Signature of Patient or Responsible Adult Escort Date/Time Name of Responsible Adult Escort Signature of Nurse Date/Time Activity:: Activity as Tolerated Diet:: High Fiber diet Discharge Orders Discharge Orders: Discharge Order (Routine); Ordered 02/04/21 Ordered By: Marga Mg
[2021-02-04 06:44] VITALS: BP 145/96; PULSE 79; RESP 16; TEMP 36.2; O2SAT 98
[2021-02-04] MEDS: Lactated Ringers 1,000 ML 80 ML IV (07:00)
[2021-02-04 08:26] VITALS: BP 122/81; PULSE 58; RESP 18; TEMP 36.4; O2SAT 97
== END 2021-02-04 09:08 | disposition home or self-care (01) ==
PROVIDERS: PCP Family Medicine; Visit Provider Surgery
PROC: 0DJD8ZZ Inspection of Lower Intestinal Tract, Via Natural or Artificial Opening Endoscopic (ICD-10-PCS; CPT 45378; principal; 2021-02-04 07:30)
DX: Z12.11 Encounter for screening for malignant neoplasm of colon (principal); Z86.010 Personal history of colon polyps; K57.30 Diverticulosis of large intestine without perforation or abscess without bleeding
CPT/HCPCS: 45378; J2001

== ENCOUNTER 2021-03-26 02:51 | Outpatient (CLI) | payer OTHER, BC, SELFPAY ==
--- NOTE | 2021-03-26 11:35 | DI.MRI_ITS ---
Exam(s) MR UPPER JOINT RT WO EXAM: MR UPPER JOINT RT WO CLINICAL HISTORY: SHOULDER PAIN,TENDINITIS,SLAP LESION,M75.21,S43.431A,S46.011A,TEAR RT. TECHNIQUE: Multiplanar multisequence MRI was performed. COMPARISON: CR XR SHOULDER RT COMPLETE 2+V from 01/28/2021 FINDINGS: BONES: There is no fracture or contusion pattern. JOINTS: There is again seen slight offset of the acromioclavicular joint. Degenerative changes are s een about the joint. There is some edema around the joint and a question of at least a partial acrom ioclavicular ligament tear. The glenohumeral joint is normal. TENDONS: Supraspinatus: There is tendinosis of the supraspinatus. There is mild increased signal within the s ubstance of the tendon near its insertion site and a partial tear cannot be excluded. Infraspinatus: Unremarkable. Subscapularis: There is tendinosis of the subscapularis tendon. Teres [place]: Unremarkable. Biceps and [place]: Unremarkable. MUSCLES: Unremarkable. GLENOID LABRUM: Unremarkable on this noncontrast examination. SOFT TISSUES: Unremarkable. LIGAMENTS: Unremarkable. OTHER: There is a small amount of fluid in the subacromial subdeltoid bursa. IMPRESSION: 1. Tendinosis of the subscapularis and supraspinatus tendons. 2. Mild increased signal seen in the supraspinatus tendon which may represent a partial tear. 3. Findings suspicious for an acromioclavicular ligament tear. 4. Small amount of fluid in the subacromial subdeltoid bursa. DATA REPOSITORY:
== END 2021-03-26 03:11 ==
PROVIDERS: PCP Family Medicine; Visit Provider Student in an Organized Health Care Education/Training Program
DX: M25.511 Pain in right shoulder (principal); M75.21 Bicipital tendinitis, right shoulder; M25.411 Effusion, right shoulder
CPT/HCPCS: 73221

== ENCOUNTER 2021-04-11 03:14 | Outpatient (CLI) | payer BC, SELFPAY ==
--- NOTE | 2021-04-11 07:15 | DI.MAMMO_ITS ---
Exam(s) MAMMO SCREENING EXAM: MAMMO SCREENING CLINICAL HISTORY: screening,Z12.39. TECHNIQUE: Bilateral full field digital CC and MLO mammographic images were obtained with 3D tomosyn thesis and utilizing computer aided detection (CAD). COMPARISON: Prior mammograms dating back to 2010, the most recent being March 2020. FINDINGS: Heavily calcified nodule in the upper outer quadrant left breast consistent with calcified fibroadeno ma is again noted. Small microcalcification group in the left breast located 3 cm in from the nipple is unchanged from p rior studies and therefore benign. There are no new spiculated masses microcalcification in either b reast. There is no significant architectural distortion nor skin thickening-retraction. IMPRESSION: Stable benign findings. No radiographic evidence of malignancy. BI-RADS Category 2 - Benign Findings Breast Density - Category B - Scattered areas of fibroglandular density Breast density Category C or D implies that the patient has dense breast tissue. Dense breast tissue can make it harder to find cancer on a mammogram. Dense breast tissue is also associated with an incr eased risk of breast cancer. This information about the result of the mammogram report was provided to the patient to raise their awareness. Use this report when you speak with the patient about their risks for breast cancer, which includes their family history. At that time, you may recommend additional screening tests (Ultrasoun d or MRI) as these tests may add significant information. A negative radiographic report should not delay biopsy if a dominant or clinically suspicious mass is present. Up to ten percent of cancers are not identified on mammography. A negative report may reinforce clinical impression. Adenosis and dense breasts may obscure an underlying neoplasm. False positive reports average 6 to 10%. Patient will receive a letter notifying them of these results.
== END 2021-04-11 03:34 ==
PROVIDERS: PCP Family Medicine; Visit Provider Family Medicine
DX: Z12.31 Encounter for screening mammogram for malignant neoplasm of breast (principal); R92.8 Other abnormal and inconclusive findings on diagnostic imaging of breast
CPT/HCPCS: 77063; 77067

== ENCOUNTER 2021-05-20 02:03 | Outpatient (CLI) | payer BC, SELFPAY ==
[2021-05-20 12:17] LABS: Source Nasal/Nares
[2021-05-20 15:07] LABS: COVID-19 PCR Negative (Negative)
== END 2021-05-20 02:04 | disposition home or self-care (01) ==
LOC: LBO 02:03
PROVIDERS: PCP Family Medicine; Visit Provider Student in an Organized Health Care Education/Training Program
DX: Z20.822 Contact with and (suspected) exposure to COVID-19 (principal); Z01.818 Encounter for other preprocedural examination
CPT/HCPCS: 87635

== ENCOUNTER 2021-05-22 06:10 | Day surgery (SDC) | payer OTHER, SELFPAY ==
[2021-05-22] VITALS (10 sets, daily range): BP systolic 89–148; BP diastolic 51–89; PULSE 56–81; RESP 12–19; TEMP 36–37.2; O2SAT 93–98; BMI 24.2
--- NOTE | 2021-05-22 06:57 | W.ANESPRE ---
General Info Date of Service Date Performed: 05/22/21 Height: 5 ft 7 in Weight: 70.2 kg Body Mass Index (BMI): 24.2 Surgical Procedure: Operation Date: 05/22/21 08:10 Proposed Procedures Side Surgeon p Shoulder Arthroscopy, exc distal clavicle Right Pete Gomez MD s Shoulder Bicep Tenodesis Right Pete Gomez MD Meds Allergies and Home Medications Allergies Allergy/AdvReac Type Severity Reaction Status Date / Time hydrocodone [From Vicodin] AdvReac Intermediate Nausea and Verified 05/22/21 06:26 vomiting oxycodone [From Percocet] AdvReac Intermediate nausea and Verified 05/22/21 06:26 vomitting Home Medication Medication Instructions Recorded Aerochamber 1 ea MISCELLANEOUS DIRECTED 08/23/13 aspirin [Aspir-81] 81 mg PO HS 12/07/17 albuterol sulfate [ProAir HFA] 1 - 2 puff INHALATION Q4H PRN PRN 11/26/18 acetaminophen 500 mg tablet 1,000 mg PO PRN tab 01/26/19 valacyclovir 1 gram tablet 2,000 mg PO BID PRN #28 tab 10/16/20 atorvastatin 20 mg tablet 20 mg PO QHS #90 tab 01/01/21 calcium phos,dibas-vitamin D3 1 tab PO HS 02/04/21 [Vitamin D (with calcium)] levothyroxine 75 mcg tablet 75 mcg PO .Sat and Sun #30 tab-cap 04/19/21 levothyroxine 88 mcg tablet 88 mcg PO .Thu-Thursday #60 tab-cap 04/19/21 citalopram 10 mg PO HS 05/21/21 lisinopril 5 mg PO HS 05/21/21 Current Visit Medications: Current Medications Generic Name Dose Route Start Last Admin Trade Name Freq PRN Reason Stop Dose Admin Ringer's Solution 1,000 mls @ 80 mls/hr 05/22/21 06:00 IV 06/20/21 23:59 INFUSION DODIE Cefazolin Sodium/Dextrose 2 gm in 50 mls @ 100 mls/hr 05/22/21 06:00 Ancef Duplex IVPB 05/22/21 16:00 PREOP DODIE IV Miscellaneous Supplies 1 each 05/22/21 06:00 Iv Access IV 09/02/21 23:59 DIRECTED DODIE Sodium Chloride 0 ml 05/22/21 06:00 Normal Saline Flush 10 Ml Syr IV 06/20/21 23:59 PRN PRN Sodium Chloride 0 ml 05/22/21 06:00 Normal Saline 10 Ml Vial IJ 06/20/21 23:59 DIRECTED PRN Sterile Water 0 ml 05/22/21 06:00 Water,Injection,Sterile 10 Ml Vial IJ 06/20/21 23:59 DIRECTED PRN PFSH Active Problems Active Problems: Problem Status Onset Code Arthralgia of right acromioclavicular joint M25.511 Diverticulosis ~01/2021 K57.90 Essential hypertension I10 Hypothyroidism E03.9 Migraine G43.909 Microscopic hematuria R31.29 Shoulder pain, right M25.511 Hyperlipidemia E78.5 Traumatic tear of right rotator cuff S46.011A SLAP lesion of right shoulder S43.431A Tendinitis of long head of biceps brachii of right shoulder M75.21 High grade dysplasia in colonic adenoma D12.6 Medical History Medical History High grade dysplasia in colonic adenoma History of tobacco use Hypertension Hypothyroid Injury of hand Avulsion fracture of the volar aspect of middle phalanx on both the left ring and middle finger DOI: 02/12/19 migrain PONV (postoperative nausea and vomiting) Pt. states she gets violently ill r/t anesthesia. Stated with previous colonoscopy she was okay Stiffness of left hand joint Varicose veins of both lower extremities Varicose veins of lower extremity Surgical History Surgical History H/O colonoscopy (~01/2021) H/O flexible sigmoidoscopy History of bilateral ligation of fallopian tubes Ligation of fallopian tube Status post phlebectomy Status post thyroidectomy Status post tonsillectomy Thyroid THYROIDECTOMY Tonsillectomy Tobacco Smoking/Tobacco Use Status: Former Tobacco Use Tobacco: How many years used: 15 Passive smoking exposure: Yes Alcohol Alcohol Intake: current Alcohol intake frequency: a few times a month Alcohol type: wine Substance Use Substance use: Never Substance use type: does not use Details: alcohol: t-5 Vital Signs and Lab Results Vital Signs Most Recent Vital Signs in EMR: Most Recent Vital Signs Temp Pulse Resp BP Pulse Ox 36.6 C 66 16 148/89 H 98 05/22/21 06:43 05/22/21 06:43 05/22/21 06:43 05/22/21 06:43 05/22/21 06:43 Lab Results Blood Type / Crossmatch: No Data to Display Complete Blood Count: No Data to Display Complete Metabolic Panel: No Data to Display Liver Function Panel: No Data to Display Coagulation Panel: No Data to Display Cardiac Panel: No Data to Display Arterial Blood Gas: No Data to Display Venous Blood Gas: No Data to Display Pancreas Panel: No Data to Display Thyroid Panel: No Data to Display Infectious Disease: Coronavirus (COVID-19)(PCR) Negative (Negative) 05/20/21 09:15 05/20/21 Coronavirus 2019 Source Nasal/Nares 05/20/21 09:15 05/20/21 Blood Cultures: No Data to Display Toxicology Panel: No Data to Display Anesthesia Assessment and Plan Anesthesia History Personal History: PONV Family History: No Family History of Anesthesia Complications Exercise Tolerance Exercise Tolerance: Metabolic Equivalents>4 Pertinent Negatives Pertinent Negatives: No Symptoms of GERD, No Major Cardiovascular Symptoms or Complaints, No Major Pulmonary Symptoms or Complaints and No History of CVA/TIA Cardiac & Pulmonary Exam Cardiac Exam: Normal S1/S2 Heart Sounds Pulmonary Exam: Clear Bilateral Breath Sounds Airway Exam Known Difficult Airway: No Mallampati Class: 1 Mouth Opening: Narrow (< 3cm) Thyromental Distance: Greater than 3 cm Neck Range of Motion: Full ROM Neck Circumference: Normal Teeth Condition: Normal Dentition ASA Classification ASA Score: ASA 2 Emergency Case?: No NPO Status NPO Status: NPO Clears >2 hours, Solids >8 hours Anesthesia Plan Resuscitation Status: Full Code Anesthesia Technique: General Anesthesia Airway Planned: Endotracheal Tube Pain Management: Surgeon and patient request nerve block Monitors Used: Standard Monitors
[2021-05-22] MEDS: Lactated Ringers 1,000 ML 80 ML IV (07:00)
--- NOTE | 2021-05-22 07:38 | PDOC.DSDIS_ITS ---
Discharge Plan Disposition Patient Disposition: HOME Condition: Stable Discharge Details Reason For Visit: Right Shoulder Arthroscopy Attending Provider: Pete Gomez Primary Care Provider: Dolores Fajardo Home Meds and New Rx's Prescriptions: New celecoxib [Celebrex] 200 mg capsule 200 mg PO BID Qty: 60 RF: 0 aspirin 81 mg tablet,delayed release (DR/EC) 81 mg PO BID Qty: 60 RF: 0 acetaminophen [Tylenol Extra Strength] 500 mg tablet 500 mg PO Q6H PRNQty: 90 RF: 0 pantoprazole [Protonix] 40 mg tablet,delayed release (DR/EC) 40 mg PO DAILY Qty: 30 RF: 0 tramadol 50 mg tablet 50 mg PO Q6H PRNQty: 20 RF: 0 Continued AEROCHAMBER 1 EACH spacer 1 ea Miscellaneous DIRECTED RF: 0 aspirin [Aspir-81] 81 MG tablet,delayed release (DR/EC) 81 mg PO HS RF: 0 valacyclovir 1 gram tablet 2,000 mg PO BID PRN (Reason: cold sores) Qty: 28 RF: 1 atorvastatin 20 mg tablet 20 mg PO QHS Qty: 90 RF: 3 levothyroxine 88 mcg tablet 88 mcg PO .Thu-Thursday Qty: 60 RF: 4 levothyroxine 75 mcg tablet 75 mcg PO .Thu and Thu Qty: 30 RF: 4 albuterol sulfate [ProAir HFA] 90 mcg/actuation HFA aerosol inhaler 1 - 2 puff Inhalation Q4H PRN PRNRF: 0 acetaminophen [Tylenol Extra Strength] 500 mg tablet 1,000 mg PO PRN RF: 0 calcium phos,dibas-vitamin D3 77-400 mg-unit Tablet 1 tab PO HS RF: 0 citalopram 10 mg tablet 10 mg PO HS RF: 0 lisinopril 10 mg tablet 5 mg PO HS RF: 0 Discharge Instructions Stand Alone Forms: Jason Shoulder Arthro Referrals: Pete Gomez MD [ [facility] STAFF PHYSICIAN] - Equipment/Supplies: Sling Activity:: Activity as Tolerated Remove Dressings/Wound Care:: 72 hours Shower/Bathe:: 72 hours Diet:: As Tolerated Discharge Orders Discharge Orders: Discharge Order (Routine); Ordered 05/22/21 Ordered By: Sirisha Hidalgo DS: Diagnosis Discharge Diagnosis (1) Arthralgia of right acromioclavicular joint: Status: Acute (2) Traumatic tear of right rotator cuff: Status: Acute (3) SLAP lesion of right shoulder: Status: Acute (4) Tendinitis of long head of biceps brachii of right shoulder: Status: Acute
[2021-05-22] MEDS: ceFAZolin 2 GM/50 ML BAG IVPB (07:55)
--- NOTE | 2021-05-22 08:24 | W.ANESPRE ---
General Info Height: 5 ft 7 in Weight: 70.2 kg Body Mass Index (BMI): 24.2 Surgical Procedure: Operation Date: 05/22/21 08:10 Proposed Procedures Side Surgeon p Shoulder Arthroscopy, exc distal clavicle Right Pete Gomez MD s Shoulder Bicep Tenodesis Right Pete Gomez MD Meds Allergies and Home Medications Allergies Allergy/AdvReac Type Severity Reaction Status Date / Time hydrocodone [From Vicodin] AdvReac Intermediate Nausea and Verified 05/22/21 06:26 vomiting oxycodone [From Percocet] AdvReac Intermediate nausea and Verified 05/22/21 06:26 vomitting Home Medication Medication Instructions Recorded Aerochamber 1 ea MISCELLANEOUS DIRECTED 08/23/13 aspirin [Aspir-81] 81 mg PO HS 12/07/17 albuterol sulfate [ProAir HFA] 1 - 2 puff INHALATION Q4H PRN PRN 11/26/18 acetaminophen 500 mg tablet 1,000 mg PO PRN tab 01/26/19 valacyclovir 1 gram tablet 2,000 mg PO BID PRN #28 tab 10/16/20 atorvastatin 20 mg tablet 20 mg PO QHS #90 tab 01/01/21 calcium phos,dibas-vitamin D3 1 tab PO HS 02/04/21 [Vitamin D (with calcium)] levothyroxine 75 mcg tablet 75 mcg PO .Sat and Sun #30 tab-cap 04/19/21 levothyroxine 88 mcg tablet 88 mcg PO .Thu-Thursday #60 tab-cap 04/19/21 citalopram 10 mg PO HS 05/21/21 lisinopril 5 mg PO HS 05/21/21 acetaminophen [Tylenol Extra 500 mg PO Q6H PRN #90 tab 05/22/21 Strength] aspirin 81 mg PO BID #60 tab 05/22/21 celecoxib [Celebrex] 200 mg PO BID #60 cap 05/22/21 pantoprazole [Protonix] 40 mg PO DAILY #30 tab 05/22/21 tramadol 50 mg PO Q6H PRN #20 tab 05/22/21 Current Visit Medications: Current Medications Generic Name Dose Route Start Last Admin Trade Name Freq PRN Reason Stop Dose Admin Acetaminophen 650 mg 05/22/21 07:33 Acetaminophen 325 Mg Tab PO Q4H PRN PRN Ringer's Solution 1,000 mls @ 80 mls/hr 05/22/21 06:00 05/22/21 07:00 IV 06/20/21 23:59 80 mls/hr INFUSION DODIE Administration Cefazolin Sodium/Dextrose 2 gm in 50 mls @ 100 mls/hr 05/22/21 06:00 Ancef Duplex IVPB 05/22/21 16:00 PREOP DODIE Ondansetron HCl 4 mg/ Sodium 52 mls @ 200 mls/hr 05/22/21 07:33 Chloride IVPB Q6H PRN PRN Cefazolin Sodium/Dextrose 1 gm in 50 mls @ 100 mls/hr 05/22/21 15:00 Ancef Duplex IVPB 05/23/21 07:29 Q8H DODIE IV Miscellaneous Supplies 1 each 05/22/21 06:00 Iv Access IV 06/20/21 23:59 DIRECTED DODIE Sodium Chloride 0 ml 05/22/21 06:00 Normal Saline Flush 10 Ml Syr IV 06/20/21 23:59 PRN PRN Sodium Chloride 0 ml 05/22/21 06:00 Normal Saline 10 Ml Vial IJ 06/20/21 23:59 DIRECTED PRN Sterile Water 0 ml 05/22/21 06:00 Water,Injection,Sterile 10 Ml Vial IJ 06/20/21 23:59 DIRECTED PRN Tramadol HCl 50 mg 05/22/21 07:42 Tramadol 50 Mg Tab PO Q6H PRN PRN PFSH Active Problems Active Problems: Problem Status Onset Code Arthralgia of right acromioclavicular joint M25.511 Diverticulosis ~01/2021 K57.90 Essential hypertension I10 Hypothyroidism E03.9 Migraine G43.909 Microscopic hematuria R31.29 Shoulder pain, right M25.511 Hyperlipidemia E78.5 Traumatic tear of right rotator cuff S46.011A SLAP lesion of right shoulder S43.431A Tendinitis of long head of biceps brachii of right shoulder M75.21 High grade dysplasia in colonic adenoma D12.6 Medical History Medical History High grade dysplasia in colonic adenoma History of tobacco use Hypertension Hypothyroid Injury of hand Avulsion fracture of the volar aspect of middle phalanx on both the left ring and middle finger DOI: 02/12/19 migrain PONV (postoperative nausea and vomiting) Pt. states she gets violently ill r/t anesthesia. Stated with previous colonoscopy she was okay Stiffness of left hand joint Varicose veins of both lower extremities Varicose veins of lower extremity Surgical History Surgical History H/O colonoscopy (~01/2021) H/O flexible sigmoidoscopy History of bilateral ligation of fallopian tubes Ligation of fallopian tube Status post phlebectomy Status post thyroidectomy Status post tonsillectomy Thyroid THYROIDECTOMY Tonsillectomy Tobacco Smoking/Tobacco Use Status: Former Tobacco Use Tobacco: How many years used: 15 Passive smoking exposure: Yes Alcohol Alcohol Intake: current Alcohol intake frequency: a few times a month Alcohol type: wine Substance Use Substance use: Never Substance use type: does not use Details: alcohol: t-5 Vital Signs and Lab Results Vital Signs Most Recent Vital Signs in EMR: Most Recent Vital Signs Temp Pulse Resp BP Pulse Ox 36.6 C 66 16 148/89 H 98 05/22/21 06:43 05/22/21 06:43 05/22/21 06:43 05/22/21 06:43 05/22/21 06:43 Lab Results Blood Type / Crossmatch: No Data to Display Complete Blood Count: No Data to Display Complete Metabolic Panel: No Data to Display Liver Function Panel: No Data to Display Coagulation Panel: No Data to Display Cardiac Panel: No Data to Display Arterial Blood Gas: No Data to Display Venous Blood Gas: No Data to Display Pancreas Panel: No Data to Display Thyroid Panel: No Data to Display Infectious Disease: Coronavirus (COVID-19)(PCR) Negative (Negative) 05/20/21 09:15 05/20/21 Coronavirus 2019 Source Nasal/Nares 05/20/21 09:15 05/20/21 Blood Cultures: No Data to Display Toxicology Panel: No Data to Display Anesthesia Assessment and Plan Anesthesia History Personal History: PONV Family History: No Family History of Anesthesia Complications Airway Exam Known Difficult Airway: No Mallampati Class: 1 Mouth Opening: Narrow (< 3cm) Thyromental Distance: Greater than 3 cm Neck Range of Motion: Full ROM Neck Circumference: Normal Teeth Condition: Normal Dentition
[2021-05-22] MEDS: EPINEPHrine 30 MG/30 ML VIAL (08:26)
[2021-05-22] MEDS: Bupivacaine 0.25% Pres-Free 30 ML VIAL (09:18)
--- NOTE | 2021-05-22 09:41 | W.PM.OP ---
Date of service: 05/22/21 Time of Service: 09:42 Operative Note Operative Note DATE OF PROCEDURE: 05/22/21 PRE-OP DIAGNOSIS: Right AC Arthritis, Rotator Cuff Tendinitis, SLAP Tear and Biceps Tendonitis POST-OP DIAGNOSIS: same PROCEDURE: - Mini-Open Distal Clavicle Excision - Extensive debridement of anterior and posterior glenohumeral joint and rotator cuff - Sub-pectoral biceps tenodesis - Subacromial Debridement with Acromioplasty SURGEON: Pete Gomez PROPERTY CLAIMS ADJUSTER: Sirisha Hidalgo ANESTHESIA TYPE: General LMA/ETT Refer to Anesthesia Record ESTIMATED BLOOD LOSS: 0 PATHOLOGY: none sent COMPLICATIONS: None Patient was transported to: PACU Patient's condition: stable Indications: I have seen Lorenza in clinic for a painful shoulder. Pathology was confirmed based on MRI and exam findings. Nonoperative measures were exhausted but disability and pain persisted. I discussed shoulder arthroscopy and procedures. I reviewed the risks of the procedures to include, but not limited to, bleeding, infection, pain, stiffness, damage to nerves or vessels, recurrence, hardware failure, blood clot. Despite these risks, the patient elected to proceed. Findings: There were signs of arthrosis of the distal clavicle; a 1cm wedge was resected A diagnostic arthroscopy was performed with the following findings: Articular Side - Glenohumeral Joint: No arthritic changes - Labrum: Detachment of the biceps anchor from the superior glenoid - Cuff: Fraying at the supraspinatus attachment, 2-3 mm - Biceps: Mild inflammatory changes Subacromial Side - Bursal: Thickened bursa - Rotator Cuff: Minimal fraying - Mild anterolateral spurring Procedure Description: Lorenza was greeted in the preoperative holding area where the correct side was identified and marked. The consent was reviewed with the patient and signed. The history and physical was updated. All questions were answered. Lorenza was taken back to the PACU for administration of an intrascalene nerve block. She was then taken to the operating room. The patient was placed into the supine position on the operating room table. A general anesthetic was administered. Lorenza was then positioned in the beach chair position. All bony prominences were well padded. The head was placed in a foam head insulation board saw operator in a neutral position. Prophylactic antibiotics in the form of Cefazolin were administered. The right arm/shoulder was then prepped with Chloraprep and draped in a standard fashion with stockinette and shoulder drape. A timeout to confirm correct identity, side and site, procedure, allergies, anesthesia, and medical concerns was performed. The arm was placed into a pneumatic contreras, SPIDER2. The distal clavicle was approached through a 2.5 centimeter incision within Stuart's lines. This was made overlying the AC joint. The skin was incised sharply. The deeper tissues dissected with electrocautery. The clavipectoral fascia was identified and incised longitudinally off of the distal clavicle and onto the acromion. This was reflected subperiosteally to expose the distal clavicle and the AC joint. With adequate exposure a 1 cm bony resection was made using an oscillating saw. This is angled posteriorly to avoid any posterior impingement. Once it was fully resected, it was inspected to make sure it is of adequate width. A rasp was used to smooth the bony edges inferiorly and posteriorly primarily. The wound was thoroughly irrigated. There is no active bleeding. The clavipectoral fascia was then closed with a 0 Vicryl in a watertight fashion. The subcutaneous tissues were then reapproximated with a 2-0 Vicryl. The shoulder arthroscopy was then performed. The glenohumeral joint was injected with 20 cc of normal saline with good flow back. A standard posterior portal was made and the joint was entered atraumatically with a blunt arthroscope. Once inside we had good visualization of the structures of the glenohumeral joint. An anterior portal was established with spinal needle localization. A 6.5 mm cannula was inserted. A probe was then used to perform a diagnostic arthroscopy. There is noted to be no significant cartilage damage of the glenoid humeral joint. The labrum was intact anteriorly and posteriorly but upon probing was found to be detached from the superior glenoid with associated fraying. There were no loose bodies in the inferior pouch. The superior rotator cuff was attached to the tuberosity with some mild fraying of the insertional supraspinatus fibers. The biceps tendon was without tearing. The subscapularis was intact. A biceps tenotomy was performed using the electrocautery. A thorough debridement was performed of the anterior soft tissues in the anterior labrum. The undersurface of the rotator cuff was also debrided, focusing mostly on the insertional fibers of the supraspinatus. This debridement was taken back until there was healthy linear tendinous tissue seen, essentially resulting in a 3 to 4 mm partial articular sided tear of the supraspinatus. The posterior rotator cuff was completely intact and the labrum was further debrided down to a smooth surface. The scope equipment was then removed from the shoulder. The biceps tenodesis was then performed. With the arm and some slight external rotation abduction pectoralis major tendon was identified. A 2 cm incision was made overlying the insertion to the humerus. Sharp dissection was carried onto the skin. Blunt dissection was carried down to the fascia the biceps musculature. This was entered with a tenotomy scissors. The biceps groove was palpable and the biceps tendon was palpable. It was withdrawn from the wound using Allis clamp and finger dissection. Once the biceps tendon was out of the arm the biceps groove was prepared using a rasp. A Mitek Lupine anchor was inserted into the biceps groove at the level of the pectoralis major insertion. This was tested to make sure had excellent fixation into the bone. Using a free needle I then placed a locking Krak?w stitch and each side of the biceps tendon using one limb from each suture at the level of the muscular tendinous junction and moving proximally. Excess tendon was then cut. Using the free suture limb I then shuttled the tendon down to the prepared surface of the humerus. It laid flat against the humerus. It was at the level of the pectoralis major tendon. The suture limbs were then tied. The wound was irrigated. The subcutaneous tissue was reapproximated with a 2-0 Vicryl. The arthroscope was then inserted into the subacromial space. The 6.5 mm cannula was placed lateral to the CA ligament. Minimal elevation of the CA ligament was performed to expose the anterolateral corner of the acromion. A complete bursectomy is performed anteriorly, posteriorly, and laterally with electrocautery and shaver. This had excellent exposure of the rotator cuff. The bursal side rotator cuff was frayed but without any full-thickness tear component. There is also no true bursal sided tear. There was a very small punctate hole seen approximate 1 cm lateral to the musculotendinous junction but did not communicate with any particular full-thickness tearing. There was a small anterolateral spur. Using a spinal needle a lateral portal was established. This became the viewing portal. Aggressive debridement was performed of the subacromial space removing all bursal tissue. The frayed portions of the bursal sided rotator cuff are also debrided down to stable tissue. A 5.0 mm yajaira was then inserted from the posterior portal. The anterolateral corner of the acromion was then resected in plane with the posterior slope of the acromion. The scope equipment was removed from the shoulder. Excess fluid was evacuated. The portal sites were closed with 3-0 Monocryl. The wounds were dressed with Steri-Strips, 4 x 4's, ABDs, Medipore tape. A sling was applied. The patient tolerated the procedure well and was returned to the PACU in a stable condition suffering no known complication.
--- NOTE | 2021-05-22 11:45 | W.ANESPOSTOP ---
Postoperative Evaluation Date, Time and Location Date Performed: 05/22/21 Time Performed: 11:44 Patient Location: Day Surgery Unit Vital Signs Most Recent Imported Vital Signs: Most Recent Vital Signs Temp Pulse Resp BP Pulse Ox 36.1 C L 69 16 108/67 95 05/22/21 11:05 05/22/21 11:42 05/22/21 11:42 05/22/21 11:42 05/22/21 11:42 Pain Score Most Recent Pain Score: Most Recent Pain Score Pain Level 0 05/22/21 11:42 Assessment Mental Status: Awake (Alert & Oriented to Patient Baseline) Airway and Respiratory Function: Patent airway with normal (patient baseline) respiratory exam Cardiovascular Function: Hemodynamically Stable Hydration Status: Adequately Hydrated Nausea & Vomiting: No Nausea or Vomiting Pain: Pt. Denies Any Pain Peripheral Nerve Block: Regional nerve block not resolved at time of post operative discharge
--- NOTE | 2021-05-23 09:47 | W.ANESNERVE ---
Nerve Block Single Injection Procedure Date and Time Date Performed: 05/23/21 Procedure Start: 07:25 Location Where Procedure Performed Procedure Location: PACU Reason Performed: Postoperative Analgesia Requesting Provider: Pete Gomez Timeout Performed Timeout Performed: Yes Monitoring Used ECG, Blood Pressure and SpO2 Sterility Sterility: Hand Hygiene, Surgical Cap, Surgical Mask and Sterile Gloves Sedation Given During Procedure Sedation Given (Indicate Dose Given): Versed IV Dose:: 2 mg Patient Mental Status Patient Mental Status: Sedate with meaningful communication Nerve Block 1st Nerve Block: Laterality: Right Block Type: Interscalene Needle / Catheter Used: 100mm SonoPlex II Local Anesthetic Bolus (Indicate Dose Given): Lidocaine used for local infiltration of skin, Injected in 3-5ml increments after negative blood aspiration, Bupivacaine 0.5% Dose:: 15 mL and Exparel Dose:: 10 mL Additives (Indicate Dose Given): None Ultrasound: Sterile probe cover and gel used Ultrasound Image Saved?: Yes Nerve Stimulator: Not Used Paresthesia: None Procedure Tolerated: No Complications Procedure Outcome: Successful Performed By: Bonifacio Elliott
== END 2021-05-22 12:35 | disposition home or self-care (01) ==
PROVIDERS: PCP Family Medicine; Visit Provider Student in an Organized Health Care Education/Training Program
PROC: (CPT 29805; principal; 2021-05-22 08:00)
PROC: (CPT 23430; 2021-05-22 08:00)
DX: S46.011A Strain of muscle(s) and tendon(s) of the rotator cuff of right shoulder, initial encounter (principal); S43.431A Superior glenoid labrum lesion of right shoulder, initial encounter; M75.21 Bicipital tendinitis, right shoulder; X58.XXXA Exposure to other specified factors, initial encounter; Y99.0 Civilian activity done for income or pay
CPT/HCPCS: 23430; 23120; 29823; 29826; J0690; J1100; J1885; J2001; J2370; J2405

== ENCOUNTER 2021-12-02 11:07 | Outpatient (CLI) | payer BC, SELFPAY ==
--- NOTE | 2021-12-02 08:30 | DI.RAD_ITS ---
Exam(s) XR WRIST LT COMPLETE EXAM: XR WRIST LT COMPLETE CLINICAL HISTORY: F/U LEFT DISTAL RADIUS FRACTURE. TECHNIQUE: 2D digital imaging was performed. COMPARISON: No exams were available for comparison FINDINGS: No evidence of fracture nor dislocation. No significant ulnar variance. No degenerative changes nor erosions. Bone density is normal. IMPRESSION: DATA REPOSITORY: RADIATION DOSE DELIVERED:
== END 2021-12-02 11:08 | disposition home or self-care (01) ==
LOC: DIORS 11:08
PROVIDERS: PCP Family Medicine; Referring Provider Family Medicine; Visit Provider Physician Assistant
DX: S52.572A Other intraarticular fracture of lower end of left radius, initial encounter for closed fracture; W19.XXXD Unspecified fall, subsequent encounter
CPT/HCPCS: 73110

== ENCOUNTER 2021-12-30 09:25 | Outpatient (CLI) | payer BC, SELFPAY ==
--- NOTE | 2021-12-30 08:30 | DI.RAD_ITS ---
Exam(s) XR WRIST LT COMPLETE EXAM: XR WRIST LT COMPLETE INDICATION: F/U L DISTAL RADIUS FRACTURE. COMPARISON: DX Wrist LT from 11/17/2021 CR XR WRIST LT COMPLETE from 12/02/2021 TECHNIQUE: 2D digital imaging was performed. Three views FINDINGS: There is some increased sclerosis at the distal radial fracture. No visible separation at the artic ular surface. No new abnormalities DATA REPOSITORY: RADIATION DOSE DELIVERED:
== END 2021-12-30 09:26 | disposition home or self-care (01) ==
LOC: DIORS 09:25
PROVIDERS: PCP Family Medicine; Visit Provider Student in an Organized Health Care Education/Training Program
DX: S52.572D Other intraarticular fracture of lower end of left radius, subsequent encounter for closed fracture with routine healing (principal); W19.XXXD Unspecified fall, subsequent encounter
CPT/HCPCS: 73110

== ENCOUNTER 2022-02-24 01:49 | Outpatient (CLI) | payer BC, SELFPAY ==
[2022-02-24 13:38] LABS: ALT 20 U/L (14-59); AST 18 U/L (15-37); Albumin 3.8 g/dL (3.4-5.0); Alkaline Phosphatase 73 U/L (46-116); Anion Gap 5.8 mmol/L (3-11); BUN 13 mg/dL (7-18); Bilirubin, Total 0.6 mg/dL (0.2-1.0); CO2 30.2 mmol/L (21.0-32.0); CREATININE 1.3 mg/dL (0.55-1.02); Calcium 8.6 mg/dL (8.5-10.1); Chloride 105 mmol/L (98-107); Estimated GFR 40.49 (mL/min/1.73m2); Glucose 132 mg/dL (74-106); Potassium 3.7 mmol/L (3.5-5.1); Sodium 141 mmol/L (136-145); TSH 0.28 uIU/mL (0.36-3.74); Total Protein 6.7 g/dL (6.4-8.2)
[2022-02-24 13:52] LABS: Calculated LDL 69 mg/dL (<100); Cholesterol 134 mg/dL (<200); HDL Cholesterol 54 mg/dL (40-60); Triglyceride 56 mg/dL (<150)
== END 2022-02-24 01:50 | disposition home or self-care (01) ==
LOC: LBO 01:49
PROVIDERS: PCP Family Medicine; Visit Provider Family Medicine
DX: I10 Essential (primary) hypertension (principal); E03.9 Hypothyroidism, unspecified
CPT/HCPCS: 36415; 80053; 80061; 84443

== ENCOUNTER → 2022-05-09 01:35 | Outpatient (CLI) | payer BC, SELFPAY ==
--- NOTE | 2022-05-09 07:00 | DI.DEXA_ITS ---
Exam(s) XR DEXA BONE DENSITY W/WO DAMASO EXAM: XR DEXA BONE DENSITY W/WO DAMASO CLINICAL HISTORY: wrist fracture recently,SCREENING FOR OSTEOPOROSIS IN POSTMENOPAUSAL WOMAN TECHNIQUE: [employer] C densitometer analysis of left hip, lumbar spine and left forearm. COMPARISON: No exams were available for comparison FINDINGS: Lateral view of the thoracic and lumbar spine shows no evidence of compression fractures. Bone mineral density measurements of the lumbar spine correspond to a total T-score of -1.8, in the osteopenic range. Bone mineral density measurements of the left hip correspond to a total T-score of -1.0 . The femora l neck T-score is -1.8, in the osteopenic range.. The left forearm bone mineral density measurements correspond to a T-score of the distal 3rd of -3.0 , in the osteoporotic range.. IMPRESSION: Osteopenia of the lumbar spine and left hip. Osteoporosis of the left forearm.
== END ==
PROVIDERS: PCP Family Medicine; Visit Provider Family Medicine
DX: Z78.0 Asymptomatic menopausal state; Z13.820 Encounter for screening for osteoporosis; M80.032A Age-related osteoporosis with current pathological fracture, left forearm, initial encounter for fracture; M85.89 Other specified disorders of bone density and structure, multiple sites
CPT/HCPCS: 77080

== ENCOUNTER 2022-07-08 01:31 | Outpatient (CLI) | payer BC, SELFPAY ==
[2022-07-08 12:46] LABS: Bilirubin Negative (Negative); Blood Moderate (Negative); Clarity Clear (Clear); Glucose Negative (Negative); Ketones Negative (Negative); Leukocyte Esterase Trace (Negative); Nitrite Negative (Negative); Urobilinogen 0.2 EU/dL (Up TO 0.2); pH 7.5 (5-8)
[2022-07-08 12:53] LABS: Bacteria Rare HPF (Negative); C & S Indicated? Yes; Casts Negative LPF (Negative); Crystals Negative HPF (Negative); Epithelial Cells Rare HPF (Negative); Mucus Negative (Negative); WBC 0-2 HPF (0-5)
[2022-07-08 13:03] LABS: BUN 15 mg/dL (7-18); CREATININE 0.9 mg/dL (0.55-1.02); Calcium 8.9 mg/dL (8.5-10.1); Chloride 105 mmol/L (98-107); Estimated GFR 68.77 (mL/min/1.73m2); Glucose 112 mg/dL (74-106); Sodium 143 mmol/L (136-145); TSH (W/Ref FT4) 0.89 uIU/mL (0.36-3.74)
== END 2022-07-08 01:32 | disposition home or self-care (01) ==
LOC: LOS 01:31
PROVIDERS: PCP Family Medicine; Visit Provider Family Medicine
DX: I10 Essential (primary) hypertension (principal); N18.30 Chronic kidney disease, stage 3 unspecified; E03.9 Hypothyroidism, unspecified
CPT/HCPCS: 36415; 80048; 81003; 81015; 84443; 87086

== ENCOUNTER → 2022-08-18 02:13 | Outpatient (CLI) | payer BC, SELFPAY ==
--- NOTE | 2022-08-18 08:00 | DI.MAMMO_ITS ---
Exam(s) MAMMO SCREENING EXAM: MAMMO SCREENING CLINICAL HISTORY: screening,Z12.39 TECHNIQUE: Mammograms were interpreted according to the usual protocol including computer analysis w [employer] CAD system, tomosynthesis and C-view imaging. COMPARISON: 2012 through 2020 FINDINGS: The breasts are composed of scattered fibroglandular densities, Breast Density category B. No suspicious masses or suspicious microcalcifications are seen. Stable coarse calcification superio r left breast. No skin thickening or abnormal axillary lymph nodes are seen. There has been no significant change from prior exams. IMPRESSION: BI-RADS Cat 2 - Benign Findings Yearly screening mammography is recommended. Breast Density - Category B, scattered fibroglandular densities. A negative radiographic report should not delay biopsy if a dominant or clinically suspicious mass is present. Up to ten percent of cancers are not identified on mammography. A negative report may reinforce clinical impression. Adenosis and dense breasts may obscure an underlying neoplasm. False positive reports average 6 to 10%. Patient will receive a letter notifying them of these results.
== END ==
PROVIDERS: PCP Family Medicine; Visit Provider Family Medicine
DX: Z12.31 Encounter for screening mammogram for malignant neoplasm of breast (principal)
CPT/HCPCS: 77063; 77067

== ENCOUNTER 2022-09-05 13:49 | Outpatient (REF) | payer BC, SELFPAY ==
[2022-09-05 09:45] LABS: Bilirubin Small (Negative); Blood Small (Negative); Clarity Clear (Clear); Glucose Negative (Negative); Ketones Negative (Negative); Leukocyte Esterase Trace (Negative); Nitrite Negative (Negative); Specific Gravity 1.025 (1.005-1.025)
[2022-09-05 09:52] LABS: Epithelial Cells Negative HPF (Negative); Other Cells Negative (Negative)
[2022-09-05 09:53] LABS: Bacteria Few HPF (Negative); C & S Indicated? No; Casts Negative LPF (Negative); Crystals Mod Calcium Oxalate HPF (Negative); Mucus Negative (Negative)
== END 2022-09-05 13:50 | disposition home or self-care (01) ==
LOC: LBN 13:49
PROVIDERS: PCP Family Medicine; Visit Provider Family Medicine
DX: R30.0 Dysuria (principal); R31.0 Gross hematuria
CPT/HCPCS: 81003; 81015

== ENCOUNTER → 2022-09-12 00:35 | Outpatient (CLI) | payer BC, SELFPAY ==
[2022-09-12 08:06] LABS: Abs Immature Grans 0.02 10^3/uL (0.0-0.06); Absolute Basophil Count 0.08 10^3/uL (0.0-0.2); Absolute Eosinophil Count 0.23 10^3/uL (0.0-0.7); Absolute Lymphocyte Count 1.41 10^3/uL (1.2-3.4); Absolute Monocyte Count 0.54 10^3/uL (0.1-0.8); Absolute Neutrophil Count 4.65 10^3/uL (1.2-6.7); Basophils % 1.2; Eosinophils % 3.3; HCT 39.3 % (36.0-46.0); HGB 13.3 g/dL (11.2-15.7); Immature Grans % 0.3; Lymphocytes % 20.3; MCH 32.3 pg (27.0-33.0); MCHC 33.8 % (32.0-36.0); MCV 95 fL (80-95); MPV 10.7 fL (8.0-11.0); Monocytes % 7.8; Neutrophils % 67.1; Platelet Count 289 10^3/uL (130-400); RBC 4.12 10^6/uL (3.93-5.22); RDW 13.5 % (11.7-14.6); RDW-SD 47.8 fL; WBC 6.93 10^3/uL (4.4-10.8)
[2022-09-12 08:30] LABS: ALT 490 U/L (14-59); AST 374 U/L (15-37); Albumin 3.4 g/dL (3.4-5.0); Alkaline Phosphatase 674 U/L (46-116); Anion Gap 7.2 mmol/L (3-11); BUN 12 mg/dL (7-18); Bilirubin, Total 7.9 mg/dL (0.2-1.0); CO2 27.8 mmol/L (21.0-32.0); Calcium 8.8 mg/dL (8.5-10.1); Chloride 102 mmol/L (98-107); Estimated GFR 60.61 (mL/min/1.73m2); Glucose 138 mg/dL (74-106); Potassium 3.3 mmol/L (3.5-5.1); Sodium 137 mmol/L (136-145)
--- NOTE | 2022-09-12 09:05 | DI.CT_ITS ---
Exam(s) CT ABDOMEN PELVIS WO/W EXAM: CT ABDOMEN PELVIS WO/W CLINICAL HISTORY: gross hematuria R31.0 TECHNIQUE: CT examination of the abdomen pelvis was performed utilizing CT urogram protocol with non contrast CT followed by venous phase 7 minutes delayed phase imaging with intravenous infusion of 100 cc of Omnipaque 350. COMPARISON: No exams were available for comparison FINDINGS: Noncontrast CT shows no evidence of urinary tract calcification. Images obtained through the lung bases are unremarkable. The liver contains no focal parenchymal abnormality, however there is marked intrahepatic and extrahe patic biliary dilatation . Gallbladder is distended. The common bile duct measures up to about 14 millimeters in diameter and t he pancreatic duct is also dilated to about 6 millimeters. The ducts are dilated to the level of the pancreatic head, where there is suggestion of in homogeneity of attenuation, possible small mass. T he appearance is worrisome for neoplastic process, pancreatic head neoplasm versus cholangiocarcinoma . Additional evaluation with MR CP and MR pancreas protocol scan is recommended. The spleen is unremarkable in appearance. Abdominal aorta and major visceral branches appear intact. No evidence of abdominal wall hernia. No evidence of abdominal or pelvic adenopathy. No focal bowel pathology. The kidneys are normal in size and shape. There is normal symmetrical renal cortical enhancement. 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 There is normal appearance of the urina ry bladder. IMPRESSION: No evidence of urinary tract pathology by CT criteria. There is marked biliary ductal dilatation and pancreatic ductal dilatation to the level of the head o f the pancreas, suspect neoplastic disease. Additional evaluation with pancreas protocol MRI/MRCP re commended. RADIATION DOSE DELIVERED: Total DLP Total DLP DATA REPOSITORY: All CT scans at this facility are submitted to the National Radiology Data Registry (NRDR) Dose Index Registry (DIR) with the [employer] (A[employer]). RADIATION OPTIMIZATION: All CT scans at this facility use at least one of these dose optimization te chniques: automated exposure control; mA and/or kV adjustment per patient size (includes targeted exa ms where dose is matched to clinical indication); or iterative reconstruction.
[2022-09-12] MEDS: Omnipaque 350 MG/ML 100 ML BTL IJ (09:24)
== END ==
PROVIDERS: PCP Family Medicine; Visit Provider Family Medicine
DX: R31.0 Gross hematuria (principal); Z00.00 Encounter for general adult medical examination without abnormal findings; R93.2 Abnormal findings on diagnostic imaging of liver and biliary tract
CPT/HCPCS: 80053; 74178; 85025; J3490

== ENCOUNTER 2022-10-17 00:47 | Outpatient (RCR) | payer BC, SELFPAY ==
[2022-10-17] MEDS: Normal Saline Flush 10 ML SYR IVP (08:57)
[2022-10-17 09:28] LABS: Abs Immature Grans 0.01 10^3/uL (0.0-0.06); Absolute Basophil Count 0.05 10^3/uL (0.0-0.2); Absolute Eosinophil Count 0.67 10^3/uL (0.0-0.7); Absolute Lymphocyte Count 2.09 10^3/uL (1.2-3.4); Absolute Monocyte Count 0.49 10^3/uL (0.1-0.8); Absolute Neutrophil Count 3.69 10^3/uL (1.2-6.7); Basophils % 0.7; Eosinophils % 9.6; HCT 36.4 % (36.0-46.0); HGB 12.4 g/dL (11.2-15.7); Immature Grans % 0.1; Lymphocytes % 29.9; MCH 31.9 pg (27.0-33.0); MCHC 34.1 % (32.0-36.0); MCV 94 fL (80-95); MPV 10.3 fL (8.0-11.0); Neutrophils % 52.7; Platelet Count 285 10^3/uL (130-400); RBC 3.89 10^6/uL (3.93-5.22); RDW 13.3 % (11.7-14.6); RDW-SD 45.4 fL
[2022-10-17 09:46] LABS: ALT 31 U/L (14-59); AST 26 U/L (15-37); Albumin 3.1 g/dL (3.4-5.0); Alkaline Phosphatase 144 U/L (46-116); Anion Gap 7.2 mmol/L (3-11); BUN 12 mg/dL (7-18); Bilirubin, Total 1.2 mg/dL (0.2-1.0); CO2 27.8 mmol/L (21.0-32.0); Calcium 8.3 mg/dL (8.5-10.1); Chloride 104 mmol/L (98-107); Estimated GFR 60.61 (mL/min/1.73m2); Glucose 237 mg/dL (74-106); Potassium 3.5 mmol/L (3.5-5.1); Sodium 139 mmol/L (136-145); Total Protein 6.7 g/dL (6.4-8.2)
[2022-10-20 10:24] LABS: CA 19-9 224 U/mL (<35)
== END 2022-10-18 23:59 | disposition home or self-care (01) ==
LOC: INF 00:47
PROVIDERS: PCP Family Medicine; Visit Provider Internal Medicine Hematology & Oncology
DX: C25.0 Malignant neoplasm of head of pancreas (principal); Z45.2 Encounter for adjustment and management of vascular access device
CPT/HCPCS: 36591; 80053; 85025; 86301

== ENCOUNTER 2022-11-14 00:54 | Outpatient (RCR) | payer BC, SELFPAY ==
[2022-10-19 14:58] VITALS: BP 140/77; PULSE 68; RESP 20; TEMP 37.1; O2SAT 100
[2022-10-19] MEDS: Normal Saline Flush 10 ML SYR IVP (15:01)
[2022-10-19] MEDS: Heparin 500 UNITS/5 ML SYRINGE IV (15:02)
[2022-10-31] MEDS: Normal Saline Flush 10 ML SYR IVP (08:13)
[2022-10-31 08:34] LABS: Abs Immature Grans 0.01 10^3/uL (0.0-0.06); Absolute Basophil Count 0.02 10^3/uL (0.0-0.2); Absolute Eosinophil Count 0.19 10^3/uL (0.0-0.7); Absolute Lymphocyte Count 1.95 10^3/uL (1.2-3.4); Absolute Monocyte Count 0.46 10^3/uL (0.1-0.8); Absolute Neutrophil Count 1.42 10^3/uL (1.2-6.7); Basophils % 0.5; Eosinophils % 4.7; HCT 33.7 % (36.0-46.0); HGB 11.8 g/dL (11.2-15.7); Immature Grans % 0.2; Lymphocytes % 48.1; MCH 32.5 pg (27.0-33.0); MCV 93 fL (80-95); MPV 9.9 fL (8.0-11.0); Monocytes % 11.4; Neutrophils % 35.1; Platelet Count 228 10^3/uL (130-400); RBC 3.63 10^6/uL (3.93-5.22); RDW 13.3 % (11.7-14.6); RDW-SD 45.1 fL; WBC 4.05 10^3/uL (4.4-10.8)
[2022-10-31 08:49] LABS: ALT 23 U/L (14-59); AST 20 U/L (15-37); Albumin 3.2 g/dL (3.4-5.0); Alkaline Phosphatase 96 U/L (46-116); Anion Gap 6.3 mmol/L (3-11); BUN 15 mg/dL (7-18); Bilirubin, Total 0.8 mg/dL (0.2-1.0); CO2 29.7 mmol/L (21.0-32.0); CREATININE 0.9 mg/dL (0.55-1.02); Calcium 8.4 mg/dL (8.5-10.1); Chloride 103 mmol/L (98-107); Estimated GFR 68.35 (mL/min/1.73m2); Glucose 251 mg/dL (74-106); Potassium 3.2 mmol/L (3.5-5.1); Sodium 139 mmol/L (136-145); Total Protein 6.5 g/dL (6.4-8.2)
[2022-11-02 13:34] VITALS: BP 149/85; PULSE 68; RESP 20; TEMP 36.5; O2SAT 99
[2022-11-03 10:10] LABS: CA 19-9 221 U/mL (<35)
[2022-11-14] MEDS: Normal Saline Flush 10 ML SYR IVP (09:37)
[2022-11-14 09:42] LABS: Abs Immature Grans 0.02 10^3/uL (0.0-0.06); Absolute Basophil Count 0.03 10^3/uL (0.0-0.2); Absolute Eosinophil Count 0.05 10^3/uL (0.0-0.7); Absolute Lymphocyte Count 2.38 10^3/uL (1.2-3.4); Absolute Monocyte Count 0.85 10^3/uL (0.1-0.8); Absolute Neutrophil Count 1.72 10^3/uL (1.2-6.7); Basophils % 0.6; HCT 35.9 % (36.0-46.0); HGB 12.6 g/dL (11.2-15.7); Immature Grans % 0.4; Lymphocytes % 47.1; MCH 33.2 pg (27.0-33.0); MCHC 35.1 % (32.0-36.0); MCV 95 fL (80-95); MPV 9.6 fL (8.0-11.0); Monocytes % 16.8; Neutrophils % 34.1; Platelet Count 241 10^3/uL (130-400); RBC 3.79 10^6/uL (3.93-5.22); RDW 13.9 % (11.7-14.6); WBC 5.05 10^3/uL (4.4-10.8)
[2022-11-14 10:01] LABS: ALT 27 U/L (14-59); AST 21 U/L (15-37); Albumin 3.3 g/dL (3.4-5.0); Alkaline Phosphatase 99 U/L (46-116); Anion Gap 4.9 mmol/L (3-11); BUN 9 mg/dL (7-18); Bilirubin, Total 0.6 mg/dL (0.2-1.0); CO2 30.1 mmol/L (21.0-32.0); Calcium 8.9 mg/dL (8.5-10.1); Chloride 104 mmol/L (98-107); Estimated GFR 60.23 (mL/min/1.73m2); Glucose 199 mg/dL (74-106); Potassium 3.7 mmol/L (3.5-5.1); Sodium 139 mmol/L (136-145); Total Protein 6.6 g/dL (6.4-8.2)
[2022-11-17 10:52] LABS: CA 19-9 183 U/mL (<35)
== END 2022-11-18 23:59 | disposition home or self-care (01) ==
LOC: INF 00:54
PROVIDERS: PCP Family Medicine; Visit Provider Internal Medicine Hematology & Oncology
DX: Z45.2 Encounter for adjustment and management of vascular access device (principal); C25.0 Malignant neoplasm of head of pancreas
CPT/HCPCS: 36591; 80053; 96523; 85025; 86301

== ENCOUNTER 2022-12-05 00:19 | Outpatient (RCR) | payer BC, SELFPAY ==
[2022-11-19 00:09] VITALS: BP 149/85; PULSE 68; RESP 20; TEMP 36.5
[2022-11-28] MEDS: Normal Saline Flush 10 ML SYR IVP (08:09)
[2022-11-28 08:15] LABS: Abs Immature Grans 0.01 10^3/uL (0.0-0.06); Absolute Basophil Count 0.03 10^3/uL (0.0-0.2); Absolute Eosinophil Count 0.12 10^3/uL (0.0-0.7); Absolute Lymphocyte Count 1.87 10^3/uL (1.2-3.4); Absolute Monocyte Count 0.51 10^3/uL (0.1-0.8); Absolute Neutrophil Count 1.09 10^3/uL (1.2-6.7); Basophils % 0.8; Eosinophils % 3.3; HCT 32.5 % (36.0-46.0); HGB 11.3 g/dL (11.2-15.7); Immature Grans % 0.3; Lymphocytes % 51.5; MCH 32.7 pg (27.0-33.0); MCHC 34.8 % (32.0-36.0); MCV 94 fL (80-95); MPV 9.5 fL (8.0-11.0); Neutrophils % 30.1; Platelet Count 200 10^3/uL (130-400); RBC 3.46 10^6/uL (3.93-5.22); RDW 14.2 % (11.7-14.6); RDW-SD 48.1 fL; WBC 3.63 10^3/uL (4.4-10.8)
[2022-11-28 08:30] LABS: ALT 21 U/L (14-59); AST 18 U/L (15-37); Alkaline Phosphatase 95 U/L (46-116); Anion Gap 8.5 mmol/L (3-11); BUN 10 mg/dL (7-18); Bilirubin, Total 0.4 mg/dL (0.2-1.0); CO2 28.5 mmol/L (21.0-32.0); Calcium 8.8 mg/dL (8.5-10.1); Chloride 105 mmol/L (98-107); Estimated GFR 60.23 (mL/min/1.73m2); Glucose 192 mg/dL (74-106); Potassium 3.6 mmol/L (3.5-5.1); Sodium 142 mmol/L (136-145); Total Protein 6.2 g/dL (6.4-8.2)
[2022-12-02 14:53] LABS: CA 19-9 104 U/mL (<35)
[2022-12-05] MEDS: Normal Saline Flush 10 ML SYR IVP (08:23)
[2022-12-05 08:26] LABS: Abs Immature Grans 0.09 10^3/uL (0.0-0.06); Absolute Basophil Count 0.06 10^3/uL (0.0-0.2); Absolute Eosinophil Count 0.18 10^3/uL (0.0-0.7); Absolute Lymphocyte Count 2.52 10^3/uL (1.2-3.4); Absolute Monocyte Count 0.63 10^3/uL (0.1-0.8); Absolute Neutrophil Count 3.22 10^3/uL (1.2-6.7); Basophils % 0.9; Eosinophils % 2.7; Immature Grans % 1.3; Lymphocytes % 37.6; MCH 32.9 pg (27.0-33.0); MCHC 34.4 % (32.0-36.0); MCV 96 fL (80-95); MPV 9.5 fL (8.0-11.0); Monocytes % 9.4; Neutrophils % 48.1; Platelet Count 279 10^3/uL (130-400); RBC 3.34 10^6/uL (3.93-5.22); RDW 14.6 % (11.7-14.6); RDW-SD 51.1 fL
[2022-12-05 08:49] LABS: ALT 22 U/L (14-59); AST 19 U/L (15-37); Albumin 3.1 g/dL (3.4-5.0); Alkaline Phosphatase 102 U/L (46-116); Anion Gap 7.4 mmol/L (3-11); BUN 8 mg/dL (7-18); Bilirubin, Total 0.3 mg/dL (0.2-1.0); CO2 28.6 mmol/L (21.0-32.0); CREATININE 0.9 mg/dL (0.55-1.02); Calcium 8.9 mg/dL (8.5-10.1); Chloride 107 mmol/L (98-107); Estimated GFR 68.35 (mL/min/1.73m2); Glucose 144 mg/dL (74-106); Potassium 3.8 mmol/L (3.5-5.1); Sodium 143 mmol/L (136-145); Total Protein 6.3 g/dL (6.4-8.2)
[2022-12-08 08:45] LABS: CA 19-9 74 U/mL (<35)
== END 2022-12-16 23:59 | disposition home or self-care (01) ==
LOC: INF 00:19
PROVIDERS: PCP Nurse Practitioner Adult Health; Visit Provider Internal Medicine Hematology & Oncology
DX: Z45.2 Encounter for adjustment and management of vascular access device (principal); C25.0 Malignant neoplasm of head of pancreas
CPT/HCPCS: 36591; 80053; 85025; 86301

== ENCOUNTER 2023-01-16 01:19 | Outpatient (RCR) | payer BC, SELFPAY ==
[2022-12-17 00:05] VITALS: BP 149/85; PULSE 68; RESP 20; TEMP 36.5
[2022-12-19] MEDS: Normal Saline Flush 10 ML SYR IVP (08:40)
[2022-12-19 09:08] LABS: Abs Immature Grans 0.01 10^3/uL (0.0-0.06); Absolute Basophil Count 0.02 10^3/uL (0.0-0.2); Absolute Eosinophil Count 0.09 10^3/uL (0.0-0.7); Absolute Lymphocyte Count 1.37 10^3/uL (1.2-3.4); Absolute Monocyte Count 0.49 10^3/uL (0.1-0.8); Basophils % 0.6; Eosinophils % 2.7; HCT 30.7 % (36.0-46.0); HGB 10.6 g/dL (11.2-15.7); Immature Grans % 0.3; Lymphocytes % 40.5; MCH 33.5 pg (27.0-33.0); MCHC 34.5 % (32.0-36.0); MCV 97 fL (80-95); MPV 9.9 fL (8.0-11.0); Monocytes % 14.5; Neutrophils % 41.4; Platelet Count 211 10^3/uL (130-400); RBC 3.16 10^6/uL (3.93-5.22); RDW 15.1 % (11.7-14.6); RDW-SD 53.6 fL; WBC 3.38 10^3/uL (4.4-10.8)
[2022-12-19 09:38] LABS: ALT 45 U/L (14-59); AST 38 U/L (15-37); Alkaline Phosphatase 96 U/L (46-116); Anion Gap 6.9 mmol/L (3-11); BUN 7 mg/dL (7-18); Bilirubin, Total 0.6 mg/dL (0.2-1.0); CO2 29.1 mmol/L (21.0-32.0); CREATININE 0.9 mg/dL (0.55-1.02); Calcium 8.5 mg/dL (8.5-10.1); Chloride 107 mmol/L (98-107); Estimated GFR 68.35 (mL/min/1.73m2); Glucose 163 mg/dL (74-106); Potassium 3.5 mmol/L (3.5-5.1); Sodium 143 mmol/L (136-145); Total Protein 6.2 g/dL (6.4-8.2)
[2022-12-22 11:24] LABS: CA 19-9 58 U/mL (<35)
[2023-01-02] MEDS: Normal Saline Flush 10 ML SYR IVP (08:30)
[2023-01-02 09:01] LABS: Abs Immature Grans 0.01 10^3/uL (0.0-0.06); Absolute Basophil Count 0.03 10^3/uL (0.0-0.2); Absolute Eosinophil Count 0.03 10^3/uL (0.0-0.7); Absolute Lymphocyte Count 1.78 10^3/uL (1.2-3.4); Absolute Monocyte Count 0.55 10^3/uL (0.1-0.8); Absolute Neutrophil Count 1.99 10^3/uL (1.2-6.7); Basophils % 0.7; Eosinophils % 0.7; HCT 31.7 % (36.0-46.0); HGB 10.9 g/dL (11.2-15.7); Immature Grans % 0.2; Lymphocytes % 40.5; MCH 33.9 pg (27.0-33.0); MCHC 34.4 % (32.0-36.0); MCV 98 fL (80-95); MPV 9.6 fL (8.0-11.0); Monocytes % 12.5; Neutrophils % 45.4; Platelet Count 246 10^3/uL (130-400); RBC 3.22 10^6/uL (3.93-5.22); RDW 14.9 % (11.7-14.6); RDW-SD 53.8 fL; WBC 4.39 10^3/uL (4.4-10.8)
[2023-01-02 09:19] LABS: ALT 24 U/L (14-59); AST 17 U/L (15-37); Albumin 3.1 g/dL (3.4-5.0); Alkaline Phosphatase 102 U/L (46-116); Anion Gap 7.9 mmol/L (3-11); BUN 10 mg/dL (7-18); Bilirubin, Total 0.4 mg/dL (0.2-1.0); CO2 27.1 mmol/L (21.0-32.0); Calcium 8.6 mg/dL (8.5-10.1); Chloride 106 mmol/L (98-107); Estimated GFR 60.23 (mL/min/1.73m2); Glucose 212 mg/dL (74-106); Potassium 3.3 mmol/L (3.5-5.1); Sodium 141 mmol/L (136-145); Total Protein 6.1 g/dL (6.4-8.2)
[2023-01-02 10:06] VITALS: BP 149/85; PULSE 68; RESP 20; TEMP 36.5
[2023-01-05 09:34] LABS: CA 19-9 54 U/mL (<35)
[2023-01-16 08:19] LABS: Abs Immature Grans 0.01 10^3/uL (0.0-0.06); Absolute Basophil Count 0.03 10^3/uL (0.0-0.2); Absolute Eosinophil Count 0.08 10^3/uL (0.0-0.7); Absolute Lymphocyte Count 1.69 10^3/uL (1.2-3.4); Absolute Monocyte Count 0.71 10^3/uL (0.1-0.8); Absolute Neutrophil Count 2.04 10^3/uL (1.2-6.7); Basophils % 0.7; Eosinophils % 1.8; HGB 11.1 g/dL (11.2-15.7); Immature Grans % 0.2; Lymphocytes % 37.1; MCH 34.7 pg (27.0-33.0); MCHC 34.7 % (32.0-36.0); MCV 100 fL (80-95); MPV 9.6 fL (8.0-11.0); Monocytes % 15.6; Neutrophils % 44.6; Platelet Count 205 10^3/uL (130-400); RDW-SD 55.3 fL; WBC 4.56 10^3/uL (4.4-10.8)
[2023-01-16] MEDS: Normal Saline Flush 10 ML SYR IVP (08:29)
[2023-01-16 08:36] LABS: ALT 20 U/L (14-59); AST 19 U/L (15-37); Albumin 3.2 g/dL (3.4-5.0); Alkaline Phosphatase 84 U/L (46-116); Anion Gap 7.6 mmol/L (3-11); BUN 8 mg/dL (7-18); Bilirubin, Total 0.4 mg/dL (0.2-1.0); CO2 29.4 mmol/L (21.0-32.0); Calcium 8.8 mg/dL (8.5-10.1); Chloride 105 mmol/L (98-107); Estimated GFR 60.23 (mL/min/1.73m2); Glucose 171 mg/dL (74-106); Potassium 3.4 mmol/L (3.5-5.1); Sodium 142 mmol/L (136-145); Total Protein 6.3 g/dL (6.4-8.2)
[2023-01-19 12:05] LABS: CA 19-9 49 U/mL (<35)
== END 2023-01-16 23:59 | disposition home or self-care (01) ==
LOC: INF 01:19
PROVIDERS: PCP Nurse Practitioner Adult Health; Visit Provider Internal Medicine Hematology & Oncology
DX: C25.0 Malignant neoplasm of head of pancreas (principal); Z45.2 Encounter for adjustment and management of vascular access device
CPT/HCPCS: 36591; 80053; 85025; 86301

== ENCOUNTER 2023-02-01 21:04 | Emergency (ER) | payer BC, SELFPAY ==
--- NOTE | 2023-02-01 21:00 | RT.EKG_ITS ---
APPROVED REPORT Exam: Resting ECG Reason for Exam: ABD pain Patient Location: E HR:87 bpm ECG Measurements Heart Rate 87 AXIS WA 135 P 69 QRSd 90 QRS 62 QT 379 T 72 QTc 456 Conclusion Sinus rhythm...normal P axis, V-rate 60- 99. Sinus. Normal axis. No STEMI. I have reviewed and interpreted ECG and agree with software generated interpretation.
[2023-02-01 21:10] VITALS: BP 151/99; PULSE 83; RESP 20; TEMP 36.8; O2SAT 99
--- NOTE | 2023-02-01 21:15 | DI.CT_ITS ---
Exam(s) CT ABDOMEN PELVIS W EXAM: CT ABDOMEN PELVIS W CLINICAL HISTORY: epig pain, hx of pancreatic ca, brendan stent. TECHNIQUE: Imaging Protocol: Axial computed tomography images with coronal and sagittal reformatted images were created and reviewed CONTRAST MATERIAL: Intravenous: Omnipaque-350 100cc Oral: None COMPARISON: CT CT CHEST/ABD/PEL W from 12/15/2022 FINDINGS: VISUALIZED LUNG BASES: No nodules nor pleural effusions evident. ABDOMEN: There is no ascites. LIVER: There is prominent periportal edema now evident in this patient who has a CBD stent in place. Pneumobilia again noted. GALLBLADDER/BILIARY: There is air-gas in the gallbladder lumen and edema around the gallbladder consi stent with element of cholecystitis. No obvious calculi evident. CBD stent in place. PANCREAS: Pancreas appears hypodense when compared to the prior study implying element pancreatitis. No peripancreatic fluid collections. SPLEEN: Spleen is not enlarged. No obvious intrasplenic lesions. Splenic and portal veins are paten t. ADRENALS: There are no significant adrenal masses. KIDNEYS:Small benign cyst in the lateral cortex of right kidney again noted measuring less than 1 cm. No solid renal masses nor calculi. No hydronephrosis. No hydroureter. No findings in the urinary bladder.. ABDOMINAL AORTA: Abdominal aorta is not enlarged. LYMPH NODES:There are no enlarged lymph nodes anterior to the pancreatic neck, these measuring approx imately 1.5 by 1.0 cm size. There is no para-aortic adenopathy. ABDOMINAL WALL: Fat containing anterior abdominal wall umbilical hernia is again noted. No bowel loo ps within the hernia sac. No bowel obstruction.. GI: There is no evidence of bowel obstruction, free air, nor abscess. PELVIS: GI: No evidence of appendicitis.No evidence of sigmoid diverticulitis. LYMPH NODES: There is no intrapelvic nor inguinal adenopathy. REPRODUCTIVE: Enlarged bilateral Nelly uterine veins which drain into gonadal veins consistent with el ement of pelvic congestion syndrome. URINARY BLADDER: No calculi nor obvious masses evident OSSEOUS: No fractures and no significant osseous lesions. Degenerative anterolisthesis L5 upon S1 due to facet with the. There are no prior defects. Advanced disc space narrowing at L3-4. No compression fractures. IMPRESSION: 1. Compared to the prior CT scan of 12/15/2022 there is again noted the presence of a common bile travis t stent. Pneumobilia is again noted. However, on the present study there is prominent periportal ed brandie in the liver and there is edema and mild fluid around the gallbladder. Suspect cholecystitis and possible cholangitis. 2. Pancreas is more hypodense when compared to the prior study implying an element of pancreatitis. There is no peripancreatic fluid collection. 3. There is increasing lymphadenopathy around the pancreatic neck. Largest lymph node at this level measures 15 x 10 mm. First read by [facility]. Patient was transferred to [facility]. RADIATION DOSE DELIVERED: 765.08mGy.cm Total DLP DATA REPOSITORY: All CT scans at this facility are submitted to the National Radiology Data Registry (NRDR) Dose Index Registry (DIR) with the [employer] (ACR). RADIATION OPTIMIZATION: All CT scans at this facility use at least one of these dose optimization te chniques: automated exposure control; mA and/or kV adjustment per patient size (includes targeted exa ms where dose is matched to clinical indication); or iterative reconstruction.
[2023-02-01 21:37] LABS: Abs Immature Grans 0.01 10^3/uL (0.0-0.06); Absolute Basophil Count 0.01 10^3/uL (0.0-0.2); Absolute Eosinophil Count 0.02 10^3/uL (0.0-0.7); Absolute Lymphocyte Count 1.37 10^3/uL (1.2-3.4); Absolute Monocyte Count 0.01 10^3/uL (0.1-0.8); Absolute Neutrophil Count 2.14 10^3/uL (1.2-6.7); Basophils % 0.3; Eosinophils % 0.6; HCT 30.2 % (36.0-46.0); HGB 10.6 g/dL (11.2-15.7); Immature Grans % 0.3; Lymphocytes % 38.5; MCH 35.1 pg (27.0-33.0); MCHC 35.1 % (32.0-36.0); MCV 100 fL (80-95); MPV 9.4 fL (8.0-11.0); Monocytes % 0.3; Platelet Count 148 10^3/uL (130-400); RBC 3.02 10^6/uL (3.93-5.22); RDW 14.2 % (11.7-14.6); WBC 3.56 10^3/uL (4.4-10.8)
[2023-02-01] MEDS: Normal Saline - Diluent 50 ML VIAL IJ (21:47)
[2023-02-01] MEDS: Omnipaque 350 MG/ML 100 ML BTL IJ (21:48)
[2023-02-01] MEDS: fentaNYL 100 MCG/2 ML VIAL 50 MCG IVP (21:49)
[2023-02-01] MEDS: Ondansetron 4 MG/2 ML VIAL IVP (21:50)
[2023-02-01] MEDS: Lactated Ringers 1,000 ML 1000 ML IV ×2 (21:50→23:39)
[2023-02-01 21:56] LABS: ALT 499 U/L (14-59); AST 723 U/L (15-37); Alkaline Phosphatase 173 U/L (46-116); Anion Gap 9.3 mmol/L (3-11); BUN 19 mg/dL (7-18); Bilirubin, Total 1.1 mg/dL (0.2-1.0); CO2 27.7 mmol/L (21.0-32.0); CREATININE 1.1 mg/dL (0.55-1.02); Calcium 8.7 mg/dL (8.5-10.1); Chloride 107 mmol/L (98-107); Estimated GFR 53.72 (mL/min/1.73m2); Glucose 159 mg/dL (74-106); Lipase 22 U/L (16-77); Potassium 3.8 mmol/L (3.5-5.1); Sodium 144 mmol/L (136-145); Total Protein 6.2 g/dL (6.4-8.2); Troponin I < 50 ng/L (<or=60)
[2023-02-01] MEDS: Normal Saline Flush 10 ML SYR IVP (21:57)
[2023-02-01] MEDS: Prochlorperazine 10 MG/2 ML VIAL IVP (22:20)
[2023-02-01 22:48] LABS: Bilirubin Negative (Negative); Blood Trace-intact (Negative); Clarity Clear (Clear); Glucose 100 mg/dL (Negative); Ketones Negative (Negative); Leukocyte Esterase Negative (Negative); Nitrite Negative (Negative); Specific Gravity 1.015 (1.005-1.025)
--- NOTE | 2023-02-01 22:49 | ED.GENADUL_ITS ---
Discharge Plan Disposition Patient Disposition: Transfer-Acute Inpatient Care Specific Acute Inpt Facility: [facility] Discharge Details Clinical Impression: Acute cholangitis, Sepsis, Pancreatic cancer, Elevated liver transaminase level Primary Care Provider: Izzy Oropeza ED Provider: Una Mcginnis Home Meds and New Rx's Prescriptions: Continued lorazepam 0.5 mg tablet 0.5 mg PO Q6H PRN prochlorperazine maleate 10 mg tablet 10 mg PO Q6H PRN losartan 100 mg tablet 100 mg PO DAILY Qty: 90 3RF atorvastatin 20 mg tablet 20 mg PO QHS Qty: 90 3RF levothyroxine 75 mcg tablet 75 mcg PO .TThSaSu Qty: 60 4RF levothyroxine 88 mcg tablet 88 mcg PO .MWF Qty: 30 4RF potassium chloride 10 mEq capsule, extended release 10 meq PO DAILY apixaban 5 mg tablet 5 mg PO BID Creon 24,000-76,000 -120,000 unit capsule,delayed release(DR/EC) 2 cap PO TID Patient Comments: take 2 tabs with meals and 1 tab with snacks Rx Instructions: Up to 9 caps per day; administer with meals and/or snacks omeprazole 40 mg capsule,delayed release(DR/EC) 40 mg PO DAILY Qty: 90 3RF valacyclovir 1 gram tablet 2,000 mg PO BID PRN (Reason: cold sores) Qty: 28 1RF Rx Instructions: take 2 tablets at onset on symptoms and repeat once, 12 hours later tramadol 50 mg tablet 50 mg PO Q6H PRN (Reason: pain) Qty: 30 1RF acetaminophen [Tylenol Extra Strength] 500 mg tablet 500 mg PO Q6H PRNQty: 90 0RF Discharge Data Discharge Date/Time-TO BE ENTERED AT DEPARTURE: 02/02/23 03:42 Medical Decision Making 72-year-old female presents with acute onset of epigastric pain, nausea, vomit ing, history of pancreatic stent cancer with reported biliary stent Secondary to comorbidities and presentation, CT abdomen and pelvis and diagnostic labs were ordered Patient has labs that show possible evidence of obstruction, AST of 799, ALT 499, alk phos 173, bilirubin 1.1, increased from 0.5, patient does report that she had her chemotherapy removed today Patient developed rigors and tachycardia, temp was rechecked, 100.9 in the emergency department Lactate and blood cultures were subsequently ordered and a second line was placed Zosyn was initiated after blood cultures and lactate Case discussed with [facility], Dr. Vivek Henriquez, gastroenterology recommends surgical consultation and likely interventional radiology versus GI involvement Case is discussed with Dr. España, hospitalist determined that [facility] who has accepted patient in transfer We are pending bed at this time Lactate returned at 3.9, [facility] made aware Patient remains normotensive, tachycardic, received 2 L of LR bolus Resting comfortably in room at time of reassessment pending transportation once bed is made available Medical Records Medical records reviewed: Yes I reviewed the patient's medical records. Lab Data Lab results reviewed: Yes I reviewed the patient's lab results. HPI General Date/Time Provider Initiated Documentation: 02/01/23 21:23 . HPI Narrative: This 72-year-old female with history of pancreatic cancer, biliary stent, receiving chemotherapy, presents with report of acute onset of epigastric pain after eating dinner. Denies history of similar symptoms in the past. States she is also nauseous and has been vomiting. Denies any chest pain or shortness of breath. Related Data Home Medications Medication Instructions Recorded Confirmed valacyclovir 1 gram tablet 2,000 mg PO BID PRN cold sores #28 10/16/20 01/19/23 tabs acetaminophen 500 mg tablet 500 mg PO Q6H PRN #90 tabs 05/22/21 01/19/23 (Tylenol Extra Strength) atorvastatin 20 mg tablet 20 mg PO QHS #90 tabs 08/15/22 01/19/23 levothyroxine 75 mcg tablet 75 mcg PO .TThSaSu #60 tab-caps 08/15/22 01/19/23 levothyroxine 88 mcg tablet 88 mcg PO .MWF #30 tab-caps 08/15/22 01/19/23 losartan 100 mg tablet 100 mg PO DAILY #90 tabs 08/15/22 01/19/23 tramadol 50 mg tablet 50 mg PO Q6H PRN pain #30 tabs 09/17/22 01/19/23 lorazepam 0.5 mg tablet 0.5 mg PO Q6H PRN 10/29/22 01/19/23 prochlorperazine maleate 10 mg 10 mg PO Q6H PRN 10/29/22 01/19/23 tablet apixaban 5 mg tablet 5 mg PO BID 11/12/22 01/19/23 [id number]-[id number] 2 cap PO TID 11/12/22 01/19/23 24,000-76,000-120,000 unit capsule,delayed rel (Creon) omeprazole 40 mg capsule,delayed 40 mg PO DAILY #90 caps 11/12/22 01/19/23 release potassium chloride 10 mEq 10 meq PO DAILY 11/12/22 01/19/23 capsule,extended release Previous Rx's Medication Instructions Recorded valacyclovir 1 gram tablet 2,000 mg PO BID PRN cold sores #28 10/16/20 tabs acetaminophen 500 mg tablet 500 mg PO Q6H PRN #90 tabs 05/22/21 (Tylenol Extra Strength) atorvastatin 20 mg tablet 20 mg PO QHS #90 tabs 08/15/22 levothyroxine 75 mcg tablet 75 mcg PO .TThSaSu #60 tab-caps 08/15/22 levothyroxine 88 mcg tablet 88 mcg PO .MWF #30 tab-caps 08/15/22 losartan 100 mg tablet 100 mg PO DAILY #90 tabs 08/15/22 tramadol 50 mg tablet 50 mg PO Q6H PRN pain #30 tabs 09/17/22 omeprazole 40 mg capsule,delayed 40 mg PO DAILY #90 caps 11/12/22 release Allergies Allergy/AdvReac Type Severity Reaction Status Date / Time hydrocodone [From Vicodin] AdvReac Intermediate Nausea and Verified 01/19/23 13:04 vomiting oxycodone [From Percocet] AdvReac Intermediate nausea and Verified 01/19/23 13:04 vomitting General Stated Complaint: Abd Prob SARA: 2 PFSH All Active Problems (Updated 02/01/23 @ 23:53 by MARCO A Peacock) Acute cholangitis (Acute) Sepsis (Acute) Pancreatic cancer (Acute) Elevated liver transaminase level (Acute) Essential hypertension (Chronic) Hypothyroidism (Chronic) Hyperlipidemia (Chronic) Depression, major, recurrent, mild (Chronic ~10/2021) Citalopram discont secondary to interaction with chemo 09/2022 Osteoporosis of forearm (Chronic ~05/09/22) started alendronate 04/2022 Adenocarcinoma of pancreas (Acute ~09/2022) Medical History (Updated 02/01/23 @ 23:53 by MARCO A Peacock) Closed fracture of left distal radius (11/16/21) Diverticulosis (~01/2021) Gross hematuria Hepatomegaly High grade dysplasia in colonic adenoma History of tobacco use Injury of hand Avulsion fracture of the volar aspect of middle phalanx on both the left ring and middle finger DOI: 02/12/19 Malignant obstructive jaundice Microscopic hematuria negative evaluation with renal u/s, cystoscopy Migraine PONV (postoperative nausea and vomiting) Pt. states she gets violently ill r/t anesthesia. Stated with previous colonoscopy she was okay SLAP lesion of right shoulder Stiffness of left hand joint Tendinitis of long head of biceps brachii of right shoulder Varicose veins of both lower extremities Varicose veins of lower extremity Surgical History H/O colonoscopy (~01/2021) H/O flexible sigmoidoscopy History of bilateral ligation of fallopian tubes Status post arthroscopy of right shoulder (~2020) Status post phlebectomy Status post thyroidectomy Status post tonsillectomy Family History (Updated 11/12/22 @ 18:36 by Izzy Oropeza NP) Mother , 75 Diabetes Essential hypertension Alzheimer disease Hyperlipidemia Father , 72 Diabetes Essential hypertension Depression Hyperlipidemia Neoplasm LIVER Liver cancer Brother Essential hypertension Lung cancer Throat cancer Brother Essential hypertension Depression Heart disease Maternal Grandfather , 72 No problems noted. Paternal Grandfather No problems noted. Maternal Grandmother , 50 Heart disease Paternal Grandmother , 69 No problems noted. Brother Essential hypertension Depression Brother Depression Heart disease Social History (Updated 01/19/23 @ 13:15 by Gifty Garcia RN) Smoking/Tobacco Use Status: Former Tobacco Use Quit Date: 10/19/99 Pack-years: 15 Tobacco: How many years used: 5 Second Hand Exposure: Yes Smoking risk assessment performed?: Yes Alcohol Intake: current Alcohol Intake frequency: a few times a month Alcohol type: beer, wine and hard liquor Drug use: Never Substance use type: does not use Details: alcohol: t-5 Adopted: No Caregiver/Support person: No Foster care: No Household members: spouse Housing: house Number of Children: 3 number of grandchildren: 4 Communication Needs: Hard of Hearing and Corrective Lenses Education Level: high school Do you need help understanding health information?: Rarely 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 [employer] Pets and animals: Yes Pets and animals: dog(s) Sexually active: No Do you think of yourself as: straight/heterosexual Current gender identity: female What is your relationship status?: How often do you talk on the phone with friends or family?: three or more times per week How often do you get together with friends or relatives?: once per week How often do you attend mormonism or episcopal services?: 1-3 times per year Do you belong to any clubs or organized social groups?: no Panel score (0-1 are the most socially isolated patients): 2 What type of physical activity do you participate in: walking Duration: 15-30 minutes/day Frequency: daily Christy/Jain: Religious Special christy needs: No Seatbelt use: always Helmet use: No Drive intox or ride w/intox charter and tour bus driver: No Do you feel safe at home: Yes Do you feel safe in your relationship?: Yes Additional Social history: Enjoys attending grandchildren's sports Exam Const General: cooperative and acute distress Orientation: alert and oriented x3 Other: ill in appearance HENMT Head: normal to inspection Mouth: oral mucosae normal Eyes Pupils: PERRL Resp Effort & Inspection: normal respiratory effort Auscultation: clear to auscultation bilaterally Cardio Rate: tachycardic Rhythm: regular rhythm GI Other: Exquisitely tender in the epigastrium, guarding, Skin General skin exam: pallor Other: pallor Neuro General: patient alert and patient oriented x3 Course Vital Signs Vital signs: Vital Signs Temperature 36.8 C 02/01/23 21:10 Pulse 83 02/01/23 21:10 Respiratory Rate 20 02/01/23 21:10 Blood Pressure 151/99 H 02/01/23 21:10 Pulse Oximetry 99 02/01/23 21:10 Temperature 36.8 C 02/01/23 21:10 Pulse 83 02/01/23 21:10 Respiratory Rate 20 02/01/23 21:10 Blood Pressure 151/99 H 02/01/23 21:10 Blood Pressure Position Sitting 02/01/23 21:10 Pulse Oximetry 99 02/01/23 21:10 Oxygen Delivery Method Room Air 02/01/23 21:10 Oxygen Flow Rate 0 02/01/23 21:10 Pain Level 10 02/01/23 21:10 Lab/Test Results Lab/Test Results: Laboratory Tests Range/Units 02/01/23 02/01/23 02/01/23 21:30 21:30 22:41 WBC (4.4-10.8) 10^3/uL 3.56 L RBC (3.93-5.22) 10^6/uL 3.02 L Hgb (11.2-15.7) g/dL 10.6 L Hct (36.0-46.0) % 30.2 L MCV (80-95) fL 100 H MCH (27.0-33.0) pg 35.1 H MCHC (32.0-36.0) % 35.1 RDW (11.7-14.6) % 14.2 Plt Count (130-400) 10^3/uL 148 MPV (8.0-11.0) fL 9.4 Immature Gran % 0.3 Neutrophils % 60.0 Lymphocytes % 38.5 Monocytes % 0.3 Eosinophils % 0.6 Basophils % 0.3 Nucleated RBC % (0.0-0.3) % 0.0 Absolute Neutrophils (1.2-6.7) 10^3/uL 2.14 Absolute Lymphocytes (1.2-3.4) 10^3/uL 1.37 Absolute Monocytes (0.1-0.8) 10^3/uL 0.01 L Absolute Eosinophils (0.0-0.7) 10^3/uL 0.02 Absolute Basophils (0.0-0.2) 10^3/uL 0.01 Sodium (136-145) mmol/L 144 Potassium (3.5-5.1) mmol/L 3.8 Chloride (98-107) mmol/L 107 Carbon Dioxide (21.0-32.0) mmol/L 27.7 Anion Gap (3-11) mmol/L 9.3 BUN (7-18) mg/dL 19 H Creatinine (0.55-1.02) mg/dL 1.1 H Est GFR (CKD-EPI 2020) (mL/min/1.73m2) 53.72 Glucose (74-106) mg/dL 159 H Calcium (8.5-10.1) mg/dL 8.7 Total Bilirubin (0.2-1.0) mg/dL 1.1 H AST (15-37) U/L 723 H ALT (14-59) U/L 499 H Alkaline Phosphatase (46-116) U/L 173 H Troponin I (<or=60) ng/L < 50 Total Protein (6.4-8.2) g/dL 6.2 L Albumin (3.4-5.0) g/dL 3.0 L Lipase (16-77) U/L 22 Urine Color (Yellow) Yellow Urine Clarity (Clear) Clear Urine pH (5-8) 7.0 Ur Specific [place] (1.005-1.025) 1.015 Urine Protein (Negative) mg/dL Trace H Urine Ketones (Negative) mg/dL Negative Urine Blood (Negative) Trace-intact H Urine Nitrite (Negative) Negative Urine Bilirubin (Negative) Negative Urine Urobilinogen (Up to 0.2) mg/dL 1.0 H Ur Leukocyte Esterase (Negative) Negative Urine Glucose (Negative) mg/dL 100 H Critical Care Time Critical Care Time Attestation: Approximately 60 minutes of critical care time was performed secondary to acute cholangitis, telemetry monitoring, CT imaging interpretation and review, consultation reviewed with [facility] hospitalist, surgeon, and supervisor tile and mottle, initiation of IV antibiotics, initiation of IV fluids, antipyretics, diagnostic lab review and interpretation, and subsequent transfer for higher level of care
[2023-02-01] MEDS: MORPHine 4 MG/ML SYR IVP (22:52)
[2023-02-01 22:55] LABS: Bacteria Rare HPF (Negative); C & S Indicated? No; Casts Negative LPF (Negative); Crystals Negative HPF (Negative); Epithelial Cells Rare HPF (Negative); Mucus Negative (Negative); RBC 0-2 HPF (0-2); WBC Negative HPF (0-5)
--- NOTE | 2023-02-01 23:01 | DI.VRAD_ITS ---
PROCEDURE INFORMATION: Exam: CT Abdomen And Pelvis With Contrast Exam date and time: 02/01/2023 9:58 PM Age: 72 years old Clinical indication: Abdominal pain; Epigastric; Prior surgery; Surgery date: 1-6 months; Surgery type: Biliary stent placement in September; Patient HX: Epig pain, HX of pancreatic CA, brendan stent TECHNIQUE: Imaging protocol: Computed tomography of the abdomen and pelvis with contrast. Contrast material: OMNIPAQUE 350; Contrast volume: 90 ml; Contrast route: INTRAVENOUS (IV); COMPARISON: CT CHEST/ABD/PEL W 12/15/2022 11:11 AM FINDINGS: Lungs: Mild scarring or atelectasis is noted at the left lung base. Diaphragm: Mild hiatal hernia. Liver: No suspicious liver mass or abscess. Moderate periportal edema is observed. Gallbladder and bile ducts: A common bile duct stent is present, patent with air through most of the stent. There is fluid or other material at the distal aspect of the stent. Moderate pneumobilia is observed. Gas is present in the gallbladder. Mild fluid is noted around the gallbladder. No calcified stones are observed in the gallbladder. Pancreas: The pancreatic duct is grossly dilated, 9 mm. Pancreatic parenchyma is generally atrophic. There is mild fat stranding around the pancreas. The appearance is similar to previous. There is no gross enlargement of the pancreatic head or uncinate process. Spleen: Normal. No splenomegaly. Adrenal glands: Normal. No mass. Kidneys and ureters: Normal symmetric enhancement. No mass. Negative for hydronephrosis. Ureters are not dilated. No stones are observed. Stomach and bowel: Unremarkable stomach. Nondilated small bowel. No inflammatory changes observed around the colon. Appendix: No evidence of appendicitis. Intraperitoneal space: No free fluid. No free air. No abscess. Vasculature: Mild vascular calcifications. Negative for abdominal aortic aneurysm. Inferior vena cava and iliac veins are patent. Portal and hepatic veins are patent. Splenic vein is patent. Mesenteric veins are patent and unremarkable. There is no portal venous gas. Lymph nodes: Unremarkable. No enlarged lymph nodes. Urinary bladder: Unremarkable as visualized. Reproductive: Unremarkable as visualized. Bones/joints: No compression fractures. Schmorl's nodes noted at multiple levels. Anterolisthesis noted at L5-S1, 8 mm. Soft tissues: Unremarkable. IMPRESSION: Common bile duct stent. Moderate pneumobilia. Moderate periportal edema. Mild fluid noted around the gallbladder. Fat stranding in the ivanna hepatis. Suspect cholecystitis and/or cholangitis. Dictated and Authenticated by: Maximus Chen MD. Ordering:ISABEL Heart MD
[2023-02-01] MEDS: PIPERACILLIN/TAZO 3.375 GM in Normal Saline 50 ML IVPB (23:28)
[2023-02-01 23:37] LABS: Lactate 3.9 MMOL/l (0.9-1.7)
[2023-02-01 23:44] VITALS: BP 157/89; PULSE 118; PULSE 120; RESP 24; O2SAT 100
[2023-02-01 23:45] VITALS: PULSE 117; RESP 19; O2SAT 100
[2023-02-01 23:46] VITALS: BP 131/84; PULSE 104; PULSE 113; RESP 24; TEMP 38.3; O2SAT 99
[2023-02-01 23:50] VITALS: PULSE 107; RESP 19; O2SAT 100
[2023-02-02] VITALS (43 sets, daily range): BP systolic 88–138; BP diastolic 57–85; PULSE 72–103; RESP 13–25; O2SAT 98–100
[2023-02-02 00:15] LABS: COVID-19 PCR Negative (Negative); Influenza A PCR Negative (Negative); Influenza B PCR Negative (Negative); RSV PCR Negative (Negative)
[2023-02-02 00:19] LABS: Source Nasopharynx
[2023-02-02 01:15] LABS: Lactate 2.9 MMOL/l (0.9-1.7)
[2023-02-02 01:26] LABS: Troponin I < 50 ng/L (<or=60)
--- NOTE | 2023-02-02 02:37 | NUR.NOTE ---
Nursing Note:Spoke with Maricarmen Tirado RN at [facility]. All questions answered in report.
--- NOTE | 2023-02-02 03:22 | NUR.NOTE ---
Nursing Note: [facility] arrived for transfer. Jamshid, EMT-P received report.
[2023-02-02] MEDS: MORPHine 4 MG/ML SYR IVP (03:26)
--- NOTE | 2023-02-02 14:12 | NUR.NOTE ---
Nursing Note: [facility] [place] asking if the blood cultures had grown anything out yet. There was not preliminary documentation from lab.
== END 2023-02-02 03:42 | disposition short-term general hospital (02) ==
PROVIDERS: Emergency Provider Physician Assistant; PCP Nurse Practitioner Adult Health
DX: A41.9 Sepsis, unspecified organism (principal); K83.09 Other cholangitis; C25.9 Malignant neoplasm of pancreas, unspecified; R74.01 Elevation of levels of liver transaminase levels; R00.0 Tachycardia, unspecified; Z20.822 Contact with and (suspected) exposure to COVID-19
CPT/HCPCS: 80053; 83690; 87040; 87637; 93005; 96361; 96365; 96375; 96376; 99291; 74177; 81003; 81015; 83605; 84484; 85025; 93010; J0131; J0780; J2270; J2405; J2543; J3010; J3490

== ENCOUNTER 2023-02-06 00:23 | Outpatient (CLI) | payer BC, SELFPAY ==
[2023-02-06] MEDS: Barium Sulfate 2% W/V-Berry Smoothie 450 ML BTL PO (07:27)
--- NOTE | 2023-02-06 09:40 | DI.CT_ITS ---
Exam(s) CT CHEST/ABD/PEL W EXAM: CT CHEST/ABD/PEL W CLINICAL HISTORY: MALIGNANT NEOPLASM HEAD OF PANCREAS, C25.0. TECHNIQUE: Imaging Protocol: Axial computed tomography images with coronal and sagittal reformatted images were created and reviewed CONTRAST MATERIAL: Intravenous: Omnipaque 350 Contrast volume:100 ml Oral: Yes. Oral contrast also administered for bowel opacification. COMPARISON: CT CT ABDOMEN PELVIS W from 02/01/2023 FINDINGS: CHEST: LUNGS: There are no metastatic appearing lung nodules. No pleural effusions. No findings in trachea and mainstem bronchi.. MEDIASTINUM: No hilar nor mediastinal adenopathy. CARDIAC: Heart size is normal. There is no pericardial effusion.Caliber of the thoracic aorta is wit hin normal limits. OSSEOUS: No significant osseous lesions.. ABDOMEN: There has been interval ERCP placement of a silastic-type stent through the indwelling self expanding -type stent in the CBD and the gallbladder appears somewhat decompressed although still mildly edemat ous. LIVER: Improvement in the amount of periportal edema in the liver no new hepatic lesions identified. No evidence of intrahepatic abscess. GALLBLADDER/BILIARY: Less distended. Mildly edematous CBD is not dilated. PANCREAS: Diffusely hypodense and with dilated duct. No peripancreatic fluid collections. SPLEEN: Spleen is not enlarged. There are no intrasplenic lesions. Splenic and portal veins are ricci nt. ADRENALS: There are no significant adrenal masses. KIDNEYS: No calculi nor hydronephrosis. No solid renal masses. ABDOMINAL AORTA: Abdominal aorta is not enlarged. LYMPH NODES: There is no retroperitoneal nor paraaortic adenopathy. ABDOMINAL WALL: No evidence of significant anterior abdominal wall nor inguinal hernia. GI: There is no evidence of bowel obstruction. PELVIS: LYMPH NODES: There is no intrapelvic nor inguinal adenopathy. GI: No evidence of appendicitis.No evidence of sigmoid diverticulitis. URINARY BLADDER: No calculi nor masses evident REPRODUCTIVE: Calcified uterine fibroid OSSEOUS: No significant osseous lesions. No fractures. IMPRESSION: 1. Compared to the recent CT scan of 02/01/2023 there has been interval placement of a silastic stent through the already indwelling self expanding-type CBD stent and there has been interval improvement in the amount of periportal edema and gallbladder distension. Still remains somewhat edematous but not distended. 2. No evidence of metastatic disease in the chest. 3. No bowel obstruction 4. No hydronephrosis 5. No ascites RADIATION DOSE DELIVERED: 1,204.14mGy.cm Total DLP DATA REPOSITORY: All CT scans at this facility are submitted to the National Radiology Data Registry (NRDR) Dose Index Registry (DIR) with the [employer] (ACR). RADIATION OPTIMIZATION: All CT scans at this facility use at least one of these dose optimization te chniques: automated exposure control; mA and/or kV adjustment per patient size (includes targeted exa ms where dose is matched to clinical indication); or iterative reconstruction.
[2023-02-06] MEDS: Normal Saline - Diluent 50 ML VIAL IJ (09:41)
[2023-02-06] MEDS: Normal Saline Flush 10 ML SYR IVP (09:41)
[2023-02-06] MEDS: Omnipaque 350 MG/ML 500 ML BTL-Imaging package 100 ML IJ (09:44)
== END 2023-02-06 00:43 ==
LOC: DI 00:23
PROVIDERS: PCP Nurse Practitioner Adult Health; Visit Provider Nurse Practitioner Family
DX: K83.09 Other cholangitis (principal); A41.9 Sepsis, unspecified organism; C25.9 Malignant neoplasm of pancreas, unspecified; R74.01 Elevation of levels of liver transaminase levels
CPT/HCPCS: 74177; 71260

== ENCOUNTER 2023-02-09 10:53 | Outpatient (CLI) | payer BC, SELFPAY ==
[2023-02-09 10:04] LABS: Abs Immature Grans 0.02 10^3/uL (0.0-0.06); Absolute Basophil Count 0.01 10^3/uL (0.0-0.2); Absolute Eosinophil Count 0.03 10^3/uL (0.0-0.7); Absolute Lymphocyte Count 1.79 10^3/uL (1.2-3.4); Absolute Monocyte Count 0.32 10^3/uL (0.1-0.8); Absolute Neutrophil Count 1.46 10^3/uL (1.2-6.7); Basophils % 0.3; Eosinophils % 0.8; HCT 30.6 % (36.0-46.0); HGB 10.4 g/dL (11.2-15.7); Immature Grans % 0.6; Lymphocytes % 49.3; MCH 34.2 pg (27.0-33.0); MCV 101 fL (80-95); Monocytes % 8.8; Neutrophils % 40.2; Nucleated RBC 0.8 % (0.0-0.3); Platelet Count 213 10^3/uL (130-400); RBC 3.04 10^6/uL (3.93-5.22); RDW 14.6 % (11.7-14.6); RDW-SD 50.4 fL; WBC 3.63 10^3/uL (4.4-10.8)
[2023-02-09 10:16] LABS: ALT 129 U/L (14-59); AST 30 U/L (15-37); Albumin 3.1 g/dL (3.4-5.0); Alkaline Phosphatase 116 U/L (46-116); Anion Gap 6.1 mmol/L (3-11); BUN 5 mg/dL (7-18); Bilirubin, Total 0.4 mg/dL (0.2-1.0); CO2 29.9 mmol/L (21.0-32.0); CREATININE 0.9 mg/dL (0.55-1.02); Calcium 8.5 mg/dL (8.5-10.1); Chloride 106 mmol/L (98-107); Estimated GFR 68.35 (mL/min/1.73m2); Glucose 217 mg/dL (74-106); Potassium 3.8 mmol/L (3.5-5.1); Sodium 142 mmol/L (136-145); Total Protein 6.2 g/dL (6.4-8.2)
== END 2023-02-09 10:54 | disposition home or self-care (01) ==
LOC: LBO 10:54
PROVIDERS: PCP Nurse Practitioner Adult Health; Visit Provider Internal Medicine Hematology & Oncology
DX: C25.0 Malignant neoplasm of head of pancreas (principal)
CPT/HCPCS: 36415; 80053; 85025; 86301

== ENCOUNTER 2023-02-13 00:55 | Outpatient (RCR) | payer BC, SELFPAY ==
[2023-01-17 00:05] VITALS: BP 149/85; PULSE 68; RESP 20; TEMP 36.5
[2023-01-30] MEDS: Normal Saline Flush 10 ML SYR IVP (08:07)
[2023-01-30 08:27] LABS: Abs Immature Grans 0.03 10^3/uL (0.0-0.06); Absolute Basophil Count 0.02 10^3/uL (0.0-0.2); Absolute Eosinophil Count 0.07 10^3/uL (0.0-0.7); Absolute Lymphocyte Count 1.52 10^3/uL (1.2-3.4); Absolute Monocyte Count 0.56 10^3/uL (0.1-0.8); Absolute Neutrophil Count 1.78 10^3/uL (1.2-6.7); Basophils % 0.5; Eosinophils % 1.8; HCT 30.5 % (36.0-46.0); HGB 10.8 g/dL (11.2-15.7); Immature Grans % 0.8; Lymphocytes % 38.2; MCH 35.1 pg (27.0-33.0); MCHC 35.4 % (32.0-36.0); MCV 99 fL (80-95); MPV 9.6 fL (8.0-11.0); Monocytes % 14.1; Neutrophils % 44.6; Platelet Count 229 10^3/uL (130-400); RBC 3.08 10^6/uL (3.93-5.22); RDW 14.4 % (11.7-14.6); WBC 3.98 10^3/uL (4.4-10.8)
[2023-01-30 08:43] LABS: ALT 22 U/L (14-59); AST 20 U/L (15-37); Alkaline Phosphatase 89 U/L (46-116); Anion Gap 7.6 mmol/L (3-11); BUN 9 mg/dL (7-18); Bilirubin, Total 0.5 mg/dL (0.2-1.0); CO2 29.4 mmol/L (21.0-32.0); Calcium 8.8 mg/dL (8.5-10.1); Chloride 105 mmol/L (98-107); Estimated GFR 60.23 (mL/min/1.73m2); Glucose 178 mg/dL (74-106); Potassium 3.1 mmol/L (3.5-5.1); Sodium 142 mmol/L (136-145); Total Protein 6.4 g/dL (6.4-8.2)
[2023-02-02 18:27] LABS: CA 19-9 52 U/mL (<35)
[2023-02-06] MEDS: Heparin 500 UNITS/5 ML SYRINGE IV (07:18)
[2023-02-06] MEDS: Normal Saline Flush 10 ML SYR IVP (07:18)
[2023-02-06 07:32] LABS: Abs Immature Grans 0.04 10^3/uL (0.0-0.06); Absolute Basophil Count 0.03 10^3/uL (0.0-0.2); Absolute Eosinophil Count 0.04 10^3/uL (0.0-0.7); Absolute Lymphocyte Count 2.07 10^3/uL (1.2-3.4); Absolute Monocyte Count 0.21 10^3/uL (0.1-0.8); Absolute Neutrophil Count 2.14 10^3/uL (1.2-6.7); Basophils % 0.7; Eosinophils % 0.9; HCT 29.4 % (36.0-46.0); HGB 10.6 g/dL (11.2-15.7); Immature Grans % 0.9; Lymphocytes % 45.7; MCH 34.8 pg (27.0-33.0); MCHC 36.1 % (32.0-36.0); MCV 96 fL (80-95); MPV 10.1 fL (8.0-11.0); Monocytes % 4.6; Neutrophils % 47.2; Platelet Count 145 10^3/uL (130-400); RBC 3.05 10^6/uL (3.93-5.22); RDW 13.6 % (11.7-14.6); RDW-SD 48.2 fL; WBC 4.53 10^3/uL (4.4-10.8)
[2023-02-06 07:49] LABS: ALT 280 U/L (14-59); AST 85 U/L (15-37); Albumin 3.1 g/dL (3.4-5.0); Alkaline Phosphatase 134 U/L (46-116); Anion Gap 6.5 mmol/L (3-11); BUN 10 mg/dL (7-18); Bilirubin, Total 0.7 mg/dL (0.2-1.0); CO2 30.5 mmol/L (21.0-32.0); CREATININE 1.1 mg/dL (0.55-1.02); Calcium 8.7 mg/dL (8.5-10.1); Chloride 107 mmol/L (98-107); Estimated GFR 53.72 (mL/min/1.73m2); Glucose 145 mg/dL (74-106); Sodium 144 mmol/L (136-145); Total Protein 6.4 g/dL (6.4-8.2)
[2023-02-06 08:13] LABS: Potassium 2.9 mmol/L (3.5-5.1)
[2023-02-09 09:29] LABS: CA 19-9 60 U/mL (<35)
[2023-02-13] MEDS: Heparin 500 UNITS/5 ML SYRINGE IV (09:41)
[2023-02-13] MEDS: Normal Saline Flush 10 ML SYR IVP (09:41)
[2023-02-13 09:49] LABS: Absolute Basophil Count 0.01 10^3/uL (0.0-0.2); Absolute Eosinophil Count 0.03 10^3/uL (0.0-0.7); Absolute Lymphocyte Count 1.49 10^3/uL (1.2-3.4); Absolute Monocyte Count 0.48 10^3/uL (0.1-0.8); Absolute Neutrophil Count 0.75 10^3/uL (1.2-6.7); Basophils % 0.4; Eosinophils % 1.1; HCT 29.7 % (36.0-46.0); HGB 10.2 g/dL (11.2-15.7); MCH 35.2 pg (27.0-33.0); MCHC 34.3 % (32.0-36.0); MCV 102 fL (80-95); MPV 9.6 fL (8.0-11.0); Monocytes % 17.4; Neutrophils % 27.1; Platelet Count 254 10^3/uL (130-400); RDW 15.8 % (11.7-14.6); RDW-SD 58.7 fL; WBC 2.76 10^3/uL (4.4-10.8)
[2023-02-13 10:04] LABS: ALT 57 U/L (14-59); AST 20 U/L (15-37); Alkaline Phosphatase 95 U/L (46-116); Anion Gap 5.4 mmol/L (3-11); BUN 9 mg/dL (7-18); Bilirubin, Total 0.4 mg/dL (0.2-1.0); CO2 28.6 mmol/L (21.0-32.0); CREATININE 0.9 mg/dL (0.55-1.02); Calcium 8.6 mg/dL (8.5-10.1); Chloride 106 mmol/L (98-107); Diff Comment Diff Reviewed; Estimated GFR 68.35 (mL/min/1.73m2); Glucose 165 mg/dL (74-106); Potassium 3.5 mmol/L (3.5-5.1); RBC Morphology Normal; Sodium 140 mmol/L (136-145)
[2023-02-16 10:05] LABS: CA 19-9 59 U/mL (<35)
== END 2023-02-15 23:59 | disposition home or self-care (01) ==
LOC: INF 00:55
PROVIDERS: PCP Nurse Practitioner Adult Health; Visit Provider Internal Medicine Hematology & Oncology
DX: Z45.2 Encounter for adjustment and management of vascular access device (principal); C25.0 Malignant neoplasm of head of pancreas
CPT/HCPCS: 36591; 80053; 85025; 86301

== ENCOUNTER 2023-05-15 01:09 | Outpatient (RCR) | payer BC, SELFPAY ==
[2023-04-18 00:11] VITALS: BP 149/85; PULSE 68; RESP 20; TEMP 36.5
[2023-05-01] MEDS: Normal Saline Flush 10 ML SYR IVP (13:08)
[2023-05-01] MEDS: Heparin 500 UNITS/5 ML SYRINGE IV (13:08)
[2023-05-01 13:22] LABS: Abs Immature Grans 0.02 10^3/uL (0.0-0.06); Absolute Basophil Count 0.04 10^3/uL (0.0-0.2); Absolute Eosinophil Count 0.03 10^3/uL (0.0-0.7); Absolute Lymphocyte Count 1.63 10^3/uL (1.2-3.4); Absolute Monocyte Count 0.36 10^3/uL (0.1-0.8); Absolute Neutrophil Count 5.49 10^3/uL (1.2-6.7); Basophils % 0.5; Eosinophils % 0.4; HCT 36.8 % (36.0-46.0); HGB 12.6 g/dL (11.2-15.7); Immature Grans % 0.3; Lymphocytes % 21.5; MCH 33.9 pg (27.0-33.0); MCHC 34.2 % (32.0-36.0); MCV 99 fL (80-95); MPV 9.3 fL (8.0-11.0); Monocytes % 4.8; Neutrophils % 72.5; Platelet Count 306 10^3/uL (130-400); RBC 3.72 10^6/uL (3.93-5.22); RDW 11.9 % (11.7-14.6); RDW-SD 43.3 fL; WBC 7.57 10^3/uL (4.4-10.8)
[2023-05-01 13:35] LABS: ALT 34 U/L (14-59); AST 27 U/L (15-37); Albumin 3.7 g/dL (3.4-5.0); Alkaline Phosphatase 74 U/L (46-116); BUN 14 mg/dL (7-18); Bilirubin, Total 0.4 mg/dL (0.2-1.0); CREATININE 0.9 mg/dL (0.55-1.02); Calcium 8.6 mg/dL (8.5-10.1); Chloride 104 mmol/L (98-107); Estimated GFR 68.35 (mL/min/1.73m2); Glucose 172 mg/dL (74-106); Potassium 3.9 mmol/L (3.5-5.1); Sodium 140 mmol/L (136-145); Total Protein 6.6 g/dL (6.4-8.2)
[2023-05-04 15:09] LABS: CA 19-9 11 U/mL (<35)
[2023-05-15 09:15] LABS: Abs Immature Grans 0.02 10^3/uL (0.0-0.06); Absolute Basophil Count 0.04 10^3/uL (0.0-0.2); Absolute Eosinophil Count 0.06 10^3/uL (0.0-0.7); Absolute Lymphocyte Count 1.52 10^3/uL (1.2-3.4); Absolute Monocyte Count 0.39 10^3/uL (0.1-0.8); Absolute Neutrophil Count 4.48 10^3/uL (1.2-6.7); Basophils % 0.6; Eosinophils % 0.9; HCT 38.3 % (36.0-46.0); HGB 12.8 g/dL (11.2-15.7); Immature Grans % 0.3; Lymphocytes % 23.3; MCH 32.8 pg (27.0-33.0); MCHC 33.4 % (32.0-36.0); MCV 98 fL (80-95); MPV 9.2 fL (8.0-11.0); Neutrophils % 68.9; Platelet Count 324 10^3/uL (130-400); RDW-SD 43.5 fL; WBC 6.51 10^3/uL (4.4-10.8)
[2023-05-15 09:25] LABS: ALT 46 U/L (14-59); AST 38 U/L (15-37); Albumin 3.6 g/dL (3.4-5.0); Alkaline Phosphatase 85 U/L (46-116); Anion Gap 8.3 mmol/L (3-11); BUN 15 mg/dL (7-18); Bilirubin, Total 0.3 mg/dL (0.2-1.0); CO2 28.7 mmol/L (21.0-32.0); CREATININE 0.9 mg/dL (0.55-1.02); Calcium 8.9 mg/dL (8.5-10.1); Chloride 104 mmol/L (98-107); Estimated GFR 68.35 (mL/min/1.73m2); Glucose 195 mg/dL (74-106); Potassium 3.9 mmol/L (3.5-5.1); Sodium 141 mmol/L (136-145); Total Protein 6.6 g/dL (6.4-8.2)
[2023-05-15] MEDS: Heparin 500 UNITS/5 ML SYRINGE IV (09:40)
[2023-05-15] MEDS: Normal Saline Flush 10 ML SYR IVP (09:40)
[2023-05-15 11:00] LABS: Vitamin B12 324 pg/mL (193-986)
[2023-05-18 16:00] LABS: CA 19-9 15 U/mL (<35)
== END 2023-05-18 23:59 | disposition home or self-care (01) ==
LOC: INF 01:09
PROVIDERS: PCP Nurse Practitioner Adult Health; Visit Provider Internal Medicine Hematology & Oncology
DX: Z45.2 Encounter for adjustment and management of vascular access device (principal); C25.0 Malignant neoplasm of head of pancreas
CPT/HCPCS: 36591; 80053; 82607; 85025; 86301

== ENCOUNTER 2023-06-05 02:03 | Outpatient (RCR) | payer BC, SELFPAY ==
[2023-05-19 00:13] VITALS: BP 149/85; PULSE 68; RESP 20; TEMP 36.5
[2023-06-05] MEDS: Normal Saline Flush 10 ML SYR IVP (08:40)
[2023-06-05 08:45] LABS: Abs Immature Grans 0.02 10^3/uL (0.0-0.06); Absolute Basophil Count 0.03 10^3/uL (0.0-0.2); Absolute Eosinophil Count 0.17 10^3/uL (0.0-0.7); Absolute Monocyte Count 0.32 10^3/uL (0.1-0.8); Absolute Neutrophil Count 4.02 10^3/uL (1.2-6.7); Basophils % 0.5; Eosinophils % 2.8; HCT 37.1 % (36.0-46.0); HGB 12.5 g/dL (11.2-15.7); Immature Grans % 0.3; MCH 32.7 pg (27.0-33.0); MCHC 33.7 % (32.0-36.0); MCV 97 fL (80-95); MPV 9.3 fL (8.0-11.0); Monocytes % 5.2; Neutrophils % 65.2; Platelet Count 304 10^3/uL (130-400); RBC 3.82 10^6/uL (3.93-5.22); RDW 12.3 % (11.7-14.6); WBC 6.16 10^3/uL (4.4-10.8)
[2023-06-05 09:06] LABS: ALT 39 U/L (14-59); AST 37 U/L (15-37); Albumin 3.6 g/dL (3.4-5.0); Alkaline Phosphatase 84 U/L (46-116); Anion Gap 8.7 mmol/L (3-11); BUN 12 mg/dL (7-18); Bilirubin, Total 0.4 mg/dL (0.2-1.0); CO2 28.3 mmol/L (21.0-32.0); CREATININE 0.9 mg/dL (0.55-1.02); Calcium 8.7 mg/dL (8.5-10.1); Chloride 106 mmol/L (98-107); Estimated GFR 68.35 (mL/min/1.73m2); Glucose 201 mg/dL (74-106); Potassium 3.9 mmol/L (3.5-5.1); Sodium 143 mmol/L (136-145); Total Protein 6.6 g/dL (6.4-8.2)
[2023-06-08 09:46] LABS: CA 19-9 23 U/mL (<35)
== END 2023-06-18 23:59 | disposition home or self-care (01) ==
LOC: INF 02:03
PROVIDERS: PCP Nurse Practitioner Adult Health; Visit Provider Internal Medicine Hematology & Oncology
DX: C25.0 Malignant neoplasm of head of pancreas (principal); Z45.2 Encounter for adjustment and management of vascular access device
CPT/HCPCS: 36591; 80053; 85025; 86301

== ENCOUNTER 2023-07-17 02:50 | Outpatient (RCR) | payer BC, SELFPAY ==
[2023-06-19 00:06] VITALS: BP 149/85; PULSE 68; RESP 20; TEMP 36.5
[2023-06-19] MEDS: Normal Saline Flush 10 ML SYR IVP (08:43)
[2023-06-19 08:49] LABS: Abs Immature Grans 0.01 10^3/uL (0.0-0.06); Absolute Basophil Count 0.03 10^3/uL (0.0-0.2); Absolute Eosinophil Count 0.28 10^3/uL (0.0-0.7); Absolute Lymphocyte Count 1.24 10^3/uL (1.2-3.4); Absolute Monocyte Count 0.33 10^3/uL (0.1-0.8); Absolute Neutrophil Count 2.77 10^3/uL (1.2-6.7); Basophils % 0.6; HCT 35.9 % (36.0-46.0); HGB 12.1 g/dL (11.2-15.7); Immature Grans % 0.2; Lymphocytes % 26.6; MCH 32.2 pg (27.0-33.0); MCHC 33.7 % (32.0-36.0); MCV 96 fL (80-95); MPV 9.2 fL (8.0-11.0); Monocytes % 7.1; Neutrophils % 59.5; Platelet Count 296 10^3/uL (130-400); RBC 3.76 10^6/uL (3.93-5.22); RDW 12.4 % (11.7-14.6); RDW-SD 42.9 fL; WBC 4.66 10^3/uL (4.4-10.8)
[2023-06-19 09:10] LABS: ALT 39 U/L (14-59); AST 36 U/L (15-37); Albumin 3.3 g/dL (3.4-5.0); Alkaline Phosphatase 92 U/L (46-116); Anion Gap 8.5 mmol/L (3-11); BUN 15 mg/dL (7-18); Bilirubin, Total 0.3 mg/dL (0.2-1.0); CO2 27.5 mmol/L (21.0-32.0); Calcium 8.7 mg/dL (8.5-10.1); Chloride 103 mmol/L (98-107); Estimated GFR 60.23 (mL/min/1.73m2); Glucose 203 mg/dL (74-106); Potassium 3.5 mmol/L (3.5-5.1); Sodium 139 mmol/L (136-145); Total Protein 6.5 g/dL (6.4-8.2)
[2023-06-22 09:04] LABS: CA 19-9 10 U/mL (<35)
[2023-07-03] MEDS: Normal Saline Flush 10 ML SYR IVP (08:34)
[2023-07-03 09:04] LABS: Abs Immature Grans 0.02 10^3/uL (0.0-0.06); Absolute Basophil Count 0.06 10^3/uL (0.0-0.2); Absolute Eosinophil Count 0.58 10^3/uL (0.0-0.7); Absolute Lymphocyte Count 1.23 10^3/uL (1.2-3.4); Absolute Monocyte Count 0.49 10^3/uL (0.1-0.8); Absolute Neutrophil Count 3.32 10^3/uL (1.2-6.7); Basophils % 1.1; Eosinophils % 10.2; HGB 11.8 g/dL (11.2-15.7); Immature Grans % 0.4; Lymphocytes % 21.6; MCH 32.3 pg (27.0-33.0); MCHC 33.7 % (32.0-36.0); MCV 96 fL (80-95); MPV 9.2 fL (8.0-11.0); Monocytes % 8.6; Neutrophils % 58.1; Platelet Count 284 10^3/uL (130-400); RBC 3.65 10^6/uL (3.93-5.22); RDW 13.1 % (11.7-14.6); RDW-SD 45.6 fL
[2023-07-03 09:21] LABS: ALT 30 U/L (14-59); AST 23 U/L (15-37); Albumin 3.2 g/dL (3.4-5.0); Alkaline Phosphatase 100 U/L (46-116); Anion Gap 7.8 mmol/L (3-11); BUN 13 mg/dL (7-18); Bilirubin, Total 0.3 mg/dL (0.2-1.0); CO2 27.2 mmol/L (21.0-32.0); CREATININE 1.1 mg/dL (0.55-1.02); Calcium 8.9 mg/dL (8.5-10.1); Chloride 102 mmol/L (98-107); Estimated GFR 53.72 (mL/min/1.73m2); Glucose 221 mg/dL (74-106); Potassium 3.5 mmol/L (3.5-5.1); Sodium 137 mmol/L (136-145); Total Protein 6.5 g/dL (6.4-8.2)
[2023-07-06 11:41] LABS: CA 19-9 9 U/mL (<35)
[2023-07-17] MEDS: Normal Saline Flush 10 ML SYR IVP (09:19)
[2023-07-17 09:35] LABS: Abs Immature Grans 0.02 10^3/uL (0.0-0.06); Absolute Basophil Count 0.05 10^3/uL (0.0-0.2); Absolute Eosinophil Count 0.42 10^3/uL (0.0-0.7); Absolute Lymphocyte Count 1.32 10^3/uL (1.2-3.4); Absolute Neutrophil Count 2.37 10^3/uL (1.2-6.7); Basophils % 1.1; Eosinophils % 9.2; HCT 34.2 % (36.0-46.0); HGB 11.5 g/dL (11.2-15.7); Immature Grans % 0.4; Lymphocytes % 28.8; MCH 32.3 pg (27.0-33.0); MCHC 33.6 % (32.0-36.0); MCV 96 fL (80-95); MPV 9.4 fL (8.0-11.0); Monocytes % 8.7; Neutrophils % 51.8; Platelet Count 294 10^3/uL (130-400); RBC 3.56 10^6/uL (3.93-5.22); RDW 14.2 % (11.7-14.6); RDW-SD 48.8 fL; WBC 4.58 10^3/uL (4.4-10.8)
[2023-07-17 09:46] LABS: ALT 42 U/L (14-59); AST 29 U/L (15-37); Albumin 3.3 g/dL (3.4-5.0); Alkaline Phosphatase 97 U/L (46-116); Anion Gap 8.8 mmol/L (3-11); BUN 17 mg/dL (7-18); Bilirubin, Total 0.3 mg/dL (0.2-1.0); CO2 27.2 mmol/L (21.0-32.0); Calcium 9.1 mg/dL (8.5-10.1); Chloride 103 mmol/L (98-107); Estimated GFR 60.23 (mL/min/1.73m2); Glucose 183 mg/dL (74-106); Potassium 3.6 mmol/L (3.5-5.1); Sodium 139 mmol/L (136-145); Total Protein 6.6 g/dL (6.4-8.2)
[2023-07-20 09:59] LABS: CA 19-9 15 U/mL (<35)
== END 2023-07-18 23:59 | disposition home or self-care (01) ==
LOC: INF 02:50
PROVIDERS: PCP Nurse Practitioner Adult Health; Visit Provider Internal Medicine Hematology & Oncology
DX: C25.0 Malignant neoplasm of head of pancreas (principal); Z45.2 Encounter for adjustment and management of vascular access device
CPT/HCPCS: 36591; 80053; 85025; 86301

== ENCOUNTER 2023-08-05 03:41 | Outpatient (RCR) | payer BC, SELFPAY ==
[2023-07-19 00:13] VITALS: BP 149/85; PULSE 68; RESP 20; TEMP 36.5
[2023-08-05] MEDS: Heparin 500 UNITS/5 ML SYRINGE IV (08:44)
[2023-08-05] MEDS: Normal Saline Flush 10 ML SYR IVP (08:44)
[2023-08-05 08:59] LABS: Abs Immature Grans 0.02 10^3/uL (0.0-0.06); Absolute Basophil Count 0.05 10^3/uL (0.0-0.2); Absolute Eosinophil Count 0.17 10^3/uL (0.0-0.7); Absolute Lymphocyte Count 1.43 10^3/uL (1.2-3.4); Absolute Monocyte Count 0.41 10^3/uL (0.1-0.8); Absolute Neutrophil Count 2.01 10^3/uL (1.2-6.7); Basophils % 1.2; Eosinophils % 4.2; HCT 36.4 % (36.0-46.0); HGB 12.1 g/dL (11.2-15.7); Immature Grans % 0.5; MCH 33.1 pg (27.0-33.0); MCHC 33.2 % (32.0-36.0); MCV 100 fL (80-95); MPV 9.7 fL (8.0-11.0); Neutrophils % 49.1; Platelet Count 307 10^3/uL (130-400); RBC 3.66 10^6/uL (3.93-5.22); RDW 15.6 % (11.7-14.6); RDW-SD 56.6 fL; WBC 4.09 10^3/uL (4.4-10.8)
[2023-08-05 09:10] LABS: ALT 58 U/L (14-59); AST 39 U/L (15-37); Albumin 3.5 g/dL (3.4-5.0); Alkaline Phosphatase 96 U/L (46-116); Anion Gap 5.4 mmol/L (3-11); BUN 14 mg/dL (7-18); Bilirubin, Total 0.4 mg/dL (0.2-1.0); CO2 29.6 mmol/L (21.0-32.0); Calcium 9.1 mg/dL (8.5-10.1); Chloride 105 mmol/L (98-107); Estimated GFR 60.23 (mL/min/1.73m2); Glucose 201 mg/dL (74-106); Potassium 3.6 mmol/L (3.5-5.1); Sodium 140 mmol/L (136-145); Total Protein 6.7 g/dL (6.4-8.2)
[2023-08-05 16:35] LABS: Calculated LDL 43 mg/dL (<100); Cholesterol 130 mg/dL (<200); HDL Cholesterol 60 mg/dL (40-60); TSH (W/Ref FT4) 48.42 uIU/mL (0.36-3.74); Triglyceride 139 mg/dL (<150)
[2023-08-05 16:40] LABS: Hemoglobin A1C 6.8 % (<5.7)
[2023-08-05 16:58] LABS: FREE T4 0.96 ng/dL (0.76-1.46)
[2023-08-07 10:39] LABS: CA 19-9 13 U/mL (<35)
== END 2023-08-18 23:59 | disposition home or self-care (01) ==
LOC: INF 03:41
PROVIDERS: PCP Nurse Practitioner Adult Health; Visit Provider Internal Medicine Hematology & Oncology
DX: C25.0 Malignant neoplasm of head of pancreas (principal); Z45.2 Encounter for adjustment and management of vascular access device
CPT/HCPCS: 36591; 80053; 80061; 83036; 84439; 84443; 85025; 86301

== ENCOUNTER 2023-08-28 03:57 | Outpatient (RCR) | payer BC, SELFPAY ==
[2023-08-19 00:08] VITALS: BP 149/85; PULSE 68; RESP 20; TEMP 36.5
[2023-08-28] MEDS: Normal Saline Flush 10 ML SYR IVP (07:36)
[2023-08-28] MEDS: Heparin 500 UNITS/5 ML SYRINGE IV (07:37)
[2023-08-28 07:50] LABS: Abs Immature Grans 0.01 10^3/uL (0.0-0.06); Absolute Basophil Count 0.04 10^3/uL (0.0-0.2); Absolute Eosinophil Count 0.21 10^3/uL (0.0-0.7); Absolute Lymphocyte Count 1.51 10^3/uL (1.2-3.4); Absolute Monocyte Count 0.48 10^3/uL (0.1-0.8); Absolute Neutrophil Count 4.32 10^3/uL (1.2-6.7); Basophils % 0.6; Eosinophils % 3.2; HCT 37.1 % (36.0-46.0); HGB 12.4 g/dL (11.2-15.7); Immature Grans % 0.2; MCH 33.3 pg (27.0-33.0); MCHC 33.4 % (32.0-36.0); MCV 100 fL (80-95); MPV 9.9 fL (8.0-11.0); Monocytes % 7.3; Neutrophils % 65.7; Platelet Count 265 10^3/uL (130-400); RBC 3.72 10^6/uL (3.93-5.22); RDW 14.2 % (11.7-14.6); RDW-SD 52.3 fL; WBC 6.57 10^3/uL (4.4-10.8)
[2023-08-28 08:38] LABS: ALT 37 U/L (14-59); AST 28 U/L (15-37); Albumin 3.8 g/dL (3.4-5.0); Alkaline Phosphatase 81 U/L (46-116); Anion Gap 9.4 mmol/L (3-11); BUN 16 mg/dL (7-18); Bilirubin, Total 0.7 mg/dL (0.2-1.0); CO2 27.6 mmol/L (21.0-32.0); Calcium 9.3 mg/dL (8.5-10.1); Chloride 106 mmol/L (98-107); Estimated GFR 60.23 (mL/min/1.73m2); Glucose 124 mg/dL (74-106); Sodium 143 mmol/L (136-145); Total Protein 6.8 g/dL (6.4-8.2); Vitamin B12 393 pg/mL (193-986)
[2023-08-28 08:40] LABS: Folate > 20.0 ng/mL (8.6-20.0)
[2023-08-31 10:48] LABS: CA 19-9 21 U/mL (<35)
[2023-09-01 09:29] LABS: 25-Hydroxy D Total 34 ng/mL; 25-Hydroxy D2 <4.0 ng/mL; 25-Hydroxy D3 34 ng/mL
[2023-09-01 10:03] LABS: Free Retinol (Vitamin A) 34.4 mcg/dL (32.5-78.0)
[2023-09-01 13:10] LABS: Vitamin E, Serum 8.6 mg/L (5.5 - 17.0)
[2023-09-02 15:01] LABS: Thiamine (Vitamin B1), WB 144 nmol/L (70-180)
== END 2023-09-17 23:59 | disposition home or self-care (01) ==
LOC: INF 03:57
PROVIDERS: PCP Nurse Practitioner Adult Health; Visit Provider Internal Medicine Hematology & Oncology
DX: C25.0 Malignant neoplasm of head of pancreas (principal); Z90.410 Acquired total absence of pancreas; Z90.49 Acquired absence of other specified parts of digestive tract; Z45.2 Encounter for adjustment and management of vascular access device
CPT/HCPCS: 36591; 80053; 82306; 82607; 82746; 84425; 84446; 84590; 85025; 86301

== ENCOUNTER 2023-10-07 03:50 | Outpatient (RCR) | payer BC, SELFPAY ==
[2023-09-18 00:06] VITALS: BP 149/85; PULSE 68; RESP 20; TEMP 36.5
[2023-10-07] MEDS: Normal Saline Flush 10 ML SYR IVP (11:12)
[2023-10-07] MEDS: Heparin 500 UNITS/5 ML SYRINGE IV (11:13)
== END 2023-10-18 23:59 | disposition home or self-care (01) ==
LOC: INF 03:50
PROVIDERS: PCP Nurse Practitioner Adult Health; Visit Provider Internal Medicine Hematology & Oncology
DX: C25.0 Malignant neoplasm of head of pancreas (principal); Z45.2 Encounter for adjustment and management of vascular access device
CPT/HCPCS: 96523

== ENCOUNTER 2023-11-18 03:27 | Outpatient (RCR) | payer BC, SELFPAY ==
[2023-10-19 00:16] VITALS: BP 149/85; PULSE 68; RESP 20; TEMP 36.5
[2023-11-18] MEDS: Normal Saline Flush 10 ML SYR IVP (13:15)
== END 2023-11-18 23:59 | disposition home or self-care (01) ==
LOC: INF 03:27
PROVIDERS: PCP Nurse Practitioner Adult Health; Visit Provider Internal Medicine Hematology & Oncology
DX: C25.0 Malignant neoplasm of head of pancreas (principal); Z90.410 Acquired total absence of pancreas; Z45.2 Encounter for adjustment and management of vascular access device
CPT/HCPCS: 96523

== ENCOUNTER 2023-11-19 04:24 | Outpatient (CLI) | payer BC, SELFPAY ==
[2023-11-19 10:28] LABS: ALT 44 U/L (14-59); AST 30 U/L (15-37); Albumin 3.6 g/dL (3.4-5.0); Alkaline Phosphatase 97 U/L (46-116); BUN 17 mg/dL (7-18); Bilirubin, Total 0.5 mg/dL (0.2-1.0); Calcium 8.8 mg/dL (8.5-10.1); Chloride 105 mmol/L (98-107); Estimated GFR 59.86 (mL/min/1.73m2); Folate > 20.0 ng/mL (8.6-20.0); Glucose 180 mg/dL (74-106); Sodium 143 mmol/L (136-145); TSH (W/Ref FT4) 23.26 uIU/mL (0.36-3.74); Total Protein 6.9 g/dL (6.4-8.2); Vitamin B12 554 pg/mL (193-986)
[2023-11-19 10:36] LABS: Hemoglobin A1C 6.3 % (<5.7)
[2023-11-19 10:45] LABS: FREE T4 0.97 ng/dL (0.76-1.46)
== END 2023-11-19 04:25 | disposition home or self-care (01) ==
LOC: LBO 04:29
PROVIDERS: Absent Provider Nurse Practitioner Adult Health; PCP Nurse Practitioner Adult Health; Referring Provider Nurse Practitioner Adult Health; Visit Provider Nurse Practitioner Adult Health
DX: I10 Essential (primary) hypertension (principal); E03.9 Hypothyroidism, unspecified; E78.5 Hyperlipidemia, unspecified; R71.8 Other abnormality of red blood cells; E11.65 Type 2 diabetes mellitus with hyperglycemia; Z79.4 Long term (current) use of insulin; Z79.899 Other long term (current) drug therapy
CPT/HCPCS: 36415; 80053; 82607; 82746; 83036; 84439; 84443

== ENCOUNTER → 2023-11-27 02:03 | Outpatient (CLI) | payer BC, SELFPAY ==
--- NOTE | 2023-11-27 07:30 | DI.MAMMO_ITS ---
Exam(s) MAMMO SCREENING EXAM: MAMMO SCREENING CLINICAL HISTORY: screening,z12.39. TECHNIQUE: Bilateral full field digital CC and MLO mammographic images were obtained with 3D tomosyn thesis and utilizing computer aided detection (CAD). COMPARISON: Prior mammograms were reviewed. FINDINGS: There has been no significant change in the appearance and distribution of the fibroglandular tissue. No new right breast findings. In the left breast there is a calcified fibroadenoma again noted. No other noncalcified nodule is se en more anteriorly in the left breast, 2 cm lateral to the nipple on the CC view, also unchanged from prior mammograms dating back to 2016 and therefore benign. There are no new spiculated masses nor malignant appearing microcalcification groups. There is no significant architectural distortion nor skin thickening-retraction. IMPRESSION: Stable benign-appearing findings. No radiographic evidence of malignancy. BI-RADS Category 2 - Benign Findings Breast Density - Category B - Scattered areas of fibroglandular density Breast density Category C or D implies that the patient has dense breast tissue. Dense breast tissue can make it harder to find cancer on a mammogram. Dense breast tissue is also associated with an incr eased risk of breast cancer. This information about the result of the mammogram report was provided to the patient to raise their awareness. Use this report when you speak with the patient about their risks for breast cancer, which includes their family history. At that time, you may recommend additional screening tests (Ultrasoun d or MRI) as these tests may add significant information. A negative radiographic report should not delay biopsy if a dominant or clinically suspicious mass is present. Up to ten percent of cancers are not identified on mammography. A negative report may reinforce clinical impression. Adenosis and dense breasts may obscure an underlying neoplasm. False positive reports average 6 to 10%. Patient will receive a letter notifying them of these results.
== END ==
PROVIDERS: PCP Nurse Practitioner Adult Health; Visit Provider Nurse Practitioner Adult Health
DX: Z12.31 Encounter for screening mammogram for malignant neoplasm of breast (principal)
CPT/HCPCS: 77063; 77067

== ENCOUNTER 2023-12-22 04:12 | Outpatient (CLI) | payer BC, SELFPAY ==
[2023-12-22 13:39] LABS: Abs Immature Grans 0.01 10^3/uL (0.0-0.06); Absolute Basophil Count 0.03 10^3/uL (0.0-0.2); Absolute Eosinophil Count 0.09 10^3/uL (0.0-0.7); Absolute Monocyte Count 0.31 10^3/uL (0.1-0.8); Absolute Neutrophil Count 3.06 10^3/uL (1.2-6.7); Basophils % 0.6; Eosinophils % 1.7; HCT 39.7 % (36.0-46.0); HGB 13.2 g/dL (11.2-15.7); Immature Grans % 0.2; MCH 31.1 pg (27.0-33.0); MCHC 33.2 % (32.0-36.0); MCV 93 fL (80-95); MPV 9.3 fL (8.0-11.0); Monocytes % 5.8; Neutrophils % 57.7; Platelet Count 268 10^3/uL (130-400); RBC 4.25 10^6/uL (3.93-5.22); RDW 12.7 % (11.7-14.6); RDW-SD 43.8 fL
[2023-12-22 13:55] LABS: ALT 35 U/L (14-59); AST 28 U/L (15-37); Albumin 3.6 g/dL (3.4-5.0); Alkaline Phosphatase 87 U/L (46-116); Anion Gap 8.9 mmol/L (3-11); BUN 16 mg/dL (7-18); Bilirubin, Total 0.5 mg/dL (0.2-1.0); CO2 30.1 mmol/L (21.0-32.0); Calcium 8.8 mg/dL (8.5-10.1); Chloride 104 mmol/L (98-107); Estimated GFR 59.86 (mL/min/1.73m2); Glucose 166 mg/dL (74-106); Potassium 3.9 mmol/L (3.5-5.1); Sodium 143 mmol/L (136-145)
[2023-12-23 10:26] LABS: CA 19-9 8 U/mL (<35)
== END 2023-12-22 04:13 | disposition home or self-care (01) ==
LOC: LBO 04:12
PROVIDERS: PCP Nurse Practitioner Adult Health; Visit Provider Nurse Practitioner Family
DX: Z90.410 Acquired total absence of pancreas (principal); Z90.49 Acquired absence of other specified parts of digestive tract; C25.0 Malignant neoplasm of head of pancreas
CPT/HCPCS: 36415; 80053; 85025; 86301

== ENCOUNTER → 2024-03-17 03:25 | Outpatient (CLI) | payer BC, SELFPAY ==
[2024-03-17] MEDS: Barium Sulfate 2% W/V-Creamy Vanilla Smoothie 450 ML BTL PO (08:13)
[2024-03-17 08:35] LABS: Abs Immature Grans 0.01 10^3/uL (0.0-0.06); Absolute Basophil Count 0.04 10^3/uL (0.0-0.2); Absolute Eosinophil Count 0.14 10^3/uL (0.0-0.7); Absolute Lymphocyte Count 1.39 10^3/uL (1.2-3.4); Absolute Monocyte Count 0.35 10^3/uL (0.1-0.8); Basophils % 0.8 %; Eosinophils % 2.8 %; HCT 40.7 % (36.0-46.0); HGB 13.8 g/dL (11.2-15.7); Immature Grans % 0.2 %; Lymphocytes % 28.2 %; MCH 32.5 pg (27.0-33.0); MCHC 33.9 % (32.0-36.0); MCV 96 fL (80-95); MPV 9.5 fL (8.0-11.0); Monocytes % 7.1 %; Neutrophils % 60.9 %; Platelet Count 262 10^3/uL (130-400); RBC 4.24 10^6/uL (3.93-5.22); RDW 12.8 % (11.7-14.6); RDW-SD 45.3 fL; WBC 4.93 10^3/uL (4.4-10.8)
[2024-03-17 09:04] LABS: TSH (W/Ref FT4) 19.65 uIU/mL (0.36-3.74)
[2024-03-17 09:14] LABS: BUN 13 mg/dL (7-18); Calcium 8.7 mg/dL (8.5-10.1); Glucose 120 mg/dL (74-106)
[2024-03-17 09:15] LABS: ALT 33 U/L (14-59); AST 26 U/L (15-37); Albumin 3.8 g/dL (3.4-5.0); Alkaline Phosphatase 90 U/L (46-116); Anion Gap 7.1 mmol/L (3-11); Bilirubin, Total 0.8 mg/dL (0.2-1.0); CO2 30.9 mmol/L (21.0-32.0); CREATININE 0.9 mg/dL (0.55-1.02); Chloride 106 mmol/L (98-107); Estimated GFR 67.92 (mL/min/1.73m2); Potassium 3.6 mmol/L (3.5-5.1); Sodium 144 mmol/L (136-145); Total Protein 6.9 g/dL (6.4-8.2)
[2024-03-17 09:32] LABS: FREE T4 1.05 ng/dL (0.76-1.46)
[2024-03-17] MEDS: Omnipaque 350 MG/ML 100 ML BTL IJ (10:22)
[2024-03-17] MEDS: Normal Saline - Diluent 50 ML VIAL IJ (10:23)
[2024-03-17] MEDS: Normal Saline Flush 10 ML SYR IVP (10:24)
--- NOTE | 2024-03-17 10:35 | DI.CT_ITS ---
Exam(s) CT CHEST/ABD/PEL W EXAM: CT CHEST/ABD/PEL W CLINICAL HISTORY: PANCREATIC CA, MONITOR, C25.0, HX WHIPPLE, Z90.410 TECHNIQUE: Imaging Protocol: Axial computed tomography images with coronal and sagittal reformatted images were created and reviewed CONTRAST MATERIAL: Intravenous: Omnipaque 350 contrast volume:100 mL Oral: Yes COMPARISON: CT CT CHEST/ABD/PEL W from 12/15/[address] ABDOMEN PELVIS W from 02/01/[address] CHEST/ABD/PEL W from 02/06/[address] CHEST/ABD/PEL W from 08/28/2023 FINDINGS: CHEST: Tracheobronchial tree: Patent where visualized. Pulmonary parenchyma: There are few less than 2 mm nodule seen in the lungs. No focal consolidating i nfiltrates are seen. No architectural distortion. Mediastinum and Rhea: No dominant adenopathy or fluid collection. The esophagus is unremarkable. Pleura: No effusion or pneumothorax. Heart: The heart is not dilated. No coronary artery calcifications are seen. No pericardial effusion. Pulmonary arteries: No pulmonary emboli are identified. Aorta: Thoracic aorta non-dilated. Atherosclerotic calcification is present. There is no evidence of dissection. Lymph nodes: Within normal limits. Soft tissues: Unremarkable. Bones:Within normal limits for the patient's age. ABDOMEN: Liver: Normal density. No measurable mass. Portal, Superior Mesenteric, and Splenic Veins: Unremarkable. Gallbladder and Biliary Tract: The patient has had a prior Whipple's procedure. Gallbladder has been removed. Pancreas: There is again seen atrophy of the distal pancreas. Spleen: Normal. Adrenals: No masses seen. Kidneys: Normal size, contour and axis. No radiodense stones or obstructive uropathy. Stable hypodens ities in the right kidney. No new renal lesions. No follow-up is recommended. Abdominal Aorta: Abdominal portion non-dilated. Atherosclerotic calcification is present. Bowel: There is no evidence of bowel obstruction. There is mild thickening of the wall of the distal ileum, cecum, ascending colon and proximal transverse colon. No pericolonic inflammation is seen. The remainder of the bowel is unremarkable. No evidence of appendicitis. Peritoneal Cavity: No ascites, collection or mesenteric inflammatory response. No free air. Lymph Nodes: Stable appearance of the lymph nodes in the mesentery are noted. Bones: Within normal limits for the patient's age. No aggressive osseous lesions are identified. Soft Tissues: Unremarkable. PELVIS: Bladder: Symmetric distention, no gross wall thickening. Reproductive Organs: Unremarkable as visualized. Lymph Nodes: Within normal limits. Bones: Within normal limits. IMPRESSION: 1. No evidence of abdominal or pelvic metastatic disease. 2. Status post Whipple's procedure. 3. Mild wall thickening seen from the distal ileum to the proximal transverse colon. This is nonspeci fic. No pericolonic inflammatory changes are seen. A mild/early inflammatory/infectious enterocolitis should be considered. Please correlate clinically. 4. There are few very tiny less than 2 mm nodule seen in the lungs. These are nonspecific. They appea r to have been present on the prior examination. RADIATION DOSE DELIVERED: 1,322.64mGy.cm Total DLP DATA REPOSITORY: All CT scans at this facility are submitted to the National Radiology Data Registry (NRDR) Dose Index Registry (DIR) with the [employer] (A[employer]). RADIATION OPTIMIZATION: All CT scans at this facility use at least one of these dose optimization te chniques: automated exposure control; mA and/or kV adjustment per patient size (includes targeted exa ms where dose is matched to clinical indication); or iterative reconstruction.
[2024-03-18 09:54] LABS: CA 19-9 12 U/mL (<35)
== END ==
PROVIDERS: PCP Nurse Practitioner Adult Health; Visit Provider Nurse Practitioner Family
DX: E03.9 Hypothyroidism, unspecified (principal); C25.0 Malignant neoplasm of head of pancreas; Z90.410 Acquired total absence of pancreas
CPT/HCPCS: 74177; 80053; 71260; 84439; 84443; 85025; 86301; J3490

== ENCOUNTER 2024-05-05 13:07 | Outpatient (CLI) | payer BC, SELFPAY ==
[2024-05-05 14:02] LABS: TSH (W/Ref FT4) 7.02 uIU/mL (0.36-3.74)
[2024-05-05 14:20] LABS: FREE T4 1.24 ng/dL (0.76-1.46)
== END 2024-05-05 13:08 | disposition home or self-care (01) ==
LOC: LBO 13:07
PROVIDERS: PCP Nurse Practitioner Adult Health; Visit Provider Surgery
DX: E11.65 Type 2 diabetes mellitus with hyperglycemia (principal); Z79.4 Long term (current) use of insulin; E03.9 Hypothyroidism, unspecified; M81.0 Age-related osteoporosis without current pathological fracture; I10 Essential (primary) hypertension; E78.00 Pure hypercholesterolemia, unspecified; R71.8 Other abnormality of red blood cells; C25.9 Malignant neoplasm of pancreas, unspecified; G62.9 Polyneuropathy, unspecified; R11.2 Nausea with vomiting, unspecified; Z98.890 Other specified postprocedural states; K57.90 Diverticulosis of intestine, part unspecified, without perforation or abscess without bleeding
CPT/HCPCS: 36415; 84439; 84443

== ENCOUNTER 2024-05-22 22:31 | Emergency (ER) | payer BC, SELFPAY ==
--- NOTE | 2024-05-22 22:37 | W.ED.GENAD ---
Discharge Plan Disposition Patient Disposition: Home Condition: Good Discharge Details Clinical Impression: Spasm of right trapezius muscle Primary Care Provider: Izzy Oropeza ED Provider: Tristan Larios [facility] Meds and New Rx's Prescriptions: No Action (DME) FreeStyle [place] 2 Sensor Kit See Rx Instructions .Route Qty: 12 1RF Rx Instructions: As directed, DX: E11.65 levothyroxine 88 mcg tablet 88 mcg PO . Qty: 45 3RF Rx Instructions: Dose change 2023 levothyroxine 75 mcg tablet 75 mcg PO . Qty: 40 3RF valacyclovir 1 gram tablet 2,000 mg PO BID PRN (Reason: cold sores) Qty: 28 1RF Rx Instructions: take 2 tablets at onset on symptoms and repeat once, 12 hours later losartan 100 mg tablet 50 mg PO DAILY Qty: 90 3RF Rx Instructions: Dose reduction to 50mg daily 05/18/24 for BP <140/90 omeprazole 20 mg capsule,delayed release(DR/EC) 20 mg PO .daily in AM Qty: 90 3RF Rx Instructions: Take on empty stomach Creon 24,000-76,000 -120,000 unit capsule,delayed release(DR/EC) 2 cap PO TID Patient Comments: Pt is taking 36,000 units now--3 tabs with a full meal and 1 tab with a snack or if it's a small snack she will use 24,000 units--Per pt 08/20/23 atorvastatin 20 mg tablet 20 mg PO QHS Qty: 90 3RF bupropion HCl 300 mg tablet extended release 24 hr 300 mg PO QAM Qty: 90 3RF (DME) blood sugar diagnostic Strip See Rx Instructions .Route Rx Instructions: As directed One Touch Verio system 3 times a day (DME) lancets 30 gauge misc See Rx Instructions .Route Rx Instructions: use one three times a day (DME) insulin syringes (disposable) 1 mL syringe See Rx Instructions .Route Rx Instructions: use one syringe 3 times a day (DME) FreeStyle [place] 2 [place] Misc See Rx Instructions .Route Qty: 1 0RF Rx Instructions: As directed, DX E11.65 polyethylene glycol 3350 17 gram/dose powder 238 g PO ONCE Qty: 238 0RF Rx Instructions: take per colonoscopy instructions bisacodyl [Dulcolax (bisacodyl)] 5 mg tablet,delayed release (DR/EC) 5 mg PO ONCE Qty: 4 0RF Rx Instructions: take per colonoscopy instructions mirtazapine 7.5 mg tablet See Rx Instructions .ROUTE .COMPLEX Qty: 90 1RF Dose Instruction: TAKE ONE TABLET BY MOUTH AT BEDTIME Rx Instructions: TAKE ONE TABLET BY MOUTH AT BEDTIME cyclobenzaprine 10 mg tablet 10 mg PO TID acetaminophen [Tylenol Extra Strength] 500 mg tablet 500 mg PO Q6H PRNQty: 90 0RF Discharge Instructions Instructions: Using Heat for Pain, Muscle Spasm ED Additional Instructions: You were seen for right shoulder and arm pain which seems to be related to trapezial muscle spasm. I would recommend continuing ibuprofen alternating with acetaminophen every 4 hours. You were given an injection of muscle relaxer for tonight. 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 Gentle massage and heat will likely help. Follow-up with primary care this week if not improving. Return to ED for any numbness or weakness in the arm, shortness of breath, chest pain, other concerns. HPI General Mode of arrival: ambulatory. Date/Time Provider Initiated Documentation: 05/22/24 22:37. Limitations to Documentation: no limitations. Information obtained by: patient. HPI Narrative: Patient presents to ED with right posterior shoulder pain which radiates up into the right side of her neck and down the right arm. Denies any injury. Has had shoulder problems in the past. Symptoms began on Thursday. She has tried heat, ice, lidocaine patches. She was seen at urgent care in [place] today. She had a muscle relaxer prescribed but was unable to pick it up before the pharmacy closed. She took ibuprofen earlier this evening. She took acetaminophen and one of her husbands cyclobenzaprine's about an hour prior to coming in. Continues to have pain and is unable to sleep. Pain is worse with movement though she has normal range of motion of the right arm. She has no numbness or weakness in the arm. She has no shortness of breath or chest pain. Denies any fever or cough. Related Data Home Medications ?Medication ?Instructions ?Recorded ?Confirmed acetaminophen 500 mg tablet 500 mg PO Q6H PRN #90 tabs 05/22/21 05/22/24 (Tylenol Extra Strength) blood sugar diagnostic 03/24/23 05/22/24 insulin syringes (disposable) 1 mL 03/24/23 05/22/24 lancets 30 gauge 03/24/23 05/22/24 flash glucose scanning reader #1 ea 05/06/23 05/22/24 (FreeStyle [place] 2 [place]) atorvastatin 20 mg tablet 20 mg PO QHS #90 tabs 07/20/23 05/22/24 bupropion HCl 300 mg 24 hr tablet, 300 mg PO QAM #90 tabs 07/20/23 05/22/24 extended release flash glucose sensor (FreeStyle #12 ea 08/20/23 05/22/24 Vernon 2 Sensor kit) [id number] 2 cap PO TID 08/20/23 05/22/24 24,000-76,000-120,000 unit capsule,delayed rel (Creon) levothyroxine 88 mcg tablet 88 mcg PO .E-PH-Gvq-Sun #45 02/15/24 05/22/24 tab-caps bisacodyl 5 mg tablet,delayed 5 mg PO ONCE colonscopy bowel prep 05/05/24 05/22/24 release (Dulcolax (bisacodyl)) #4 tabs polyethylene glycol 3350 17 238 g PO ONCE colonoscopy prep 05/05/24 05/22/24 gram/dose oral powder #238 grams mirtazapine 7.5 mg tablet See Rx Instructions .Route 05/16/24 05/22/24 .COMPLEX #90 tabs levothyroxine 75 mcg tablet 75 mcg PO .M-W-F #40 tab-caps 05/18/24 05/22/24 losartan 100 mg tablet 50 mg (1/2 x 100 mg) PO DAILY #90 05/18/24 05/22/24 tabs omeprazole 20 mg capsule,delayed 20 mg PO .daily in AM #90 caps 05/18/24 05/22/24 release valacyclovir 1 gram tablet 2,000 mg (2 x 1 gram) PO BID PRN 05/18/24 05/22/24 cold sores #28 tabs cyclobenzaprine 10 mg tablet 10 mg PO TID 05/22/24 05/22/24 Previous Rx's ?Medication ?Instructions ?Recorded acetaminophen 500 mg tablet 500 mg PO Q6H PRN #90 tabs 05/22/21 (Tylenol Extra Strength) flash glucose scanning reader #1 ea 05/06/23 (FreeStyle [place] 2 [place]) atorvastatin 20 mg tablet 20 mg PO QHS #90 tabs 07/20/23 bupropion HCl 300 mg 24 hr tablet, 300 mg PO QAM #90 tabs 07/20/23 extended release flash glucose sensor (FreeStyle #12 ea 08/20/23 Vernon 2 Sensor kit) levothyroxine 88 mcg tablet 88 mcg PO .Z-LK-Rtv-Sun #45 02/15/24 tab-caps bisacodyl 5 mg tablet,delayed 5 mg PO ONCE colonscopy bowel prep 05/05/24 release (Dulcolax (bisacodyl)) #4 tabs polyethylene glycol 3350 17 238 g PO ONCE colonoscopy prep 05/05/24 gram/dose oral powder #238 grams mirtazapine 7.5 mg tablet See Rx Instructions .Route 05/16/24 .COMPLEX #90 tabs levothyroxine 75 mcg tablet 75 mcg PO .-- #40 tab-caps 05/18/24 losartan 100 mg tablet 50 mg (1/2 x 100 mg) PO DAILY #90 05/18/24 tabs omeprazole 20 mg capsule,delayed 20 mg PO .daily in AM #90 caps 05/18/24 release valacyclovir 1 gram tablet 2,000 mg (2 x 1 gram) PO BID PRN 05/18/24 cold sores #28 tabs Allergies Allergy/AdvReac Type Severity Reaction Status Date / Time hydrocodone (From Vicodin) AdvReac Intermediate Nausea and Verified 05/22/24 22:46 vomiting oxycodone (From Percocet) AdvReac Intermediate nausea and Verified 05/22/24 22:46 vomitting General SARA: 2 Review of Systems Narrative: Per HPI Exam Narrative Exam Narrative: Const: WDWN elderly female in NAD. VS per triage. HEENT: NC/AT. Normal facial exam. Neck: Supple. Trachea midline. No midline tenderness. Lungs: Normal respiratory effort. Lungs are clear. Cor: RRR without murmur. Good radial pulses. Neuro: A+O x 3. Normal speech, mentation, gait. Cranial nerves II - XII grossly intact. No gross motor or sensory deficit. Ext: No C/C/E. Normal range of motion of the right upper extremity. Tenderness in the upper scapular area on the right. Minor tenderness along the right trapezius and the neck. Medical Decision Making Patient presenting to ED with right posterior shoulder pain radiating into the neck and down the arm. Right upper extremity with normal range of motion and is neurovascularly intact. Lungs are clear. Agree that this appears to be trapezial muscle spasm which is centered in the upper middle scapular region. She has been using lidocaine patches, acetaminophen, ibuprofen. She had prescription for cyclobenzaprine sent to the pharmacy but was unable to pick it up. She took one of her 's cyclobenzaprine which was over a-year-old. Presents because she cannot get comfortable and fall asleep. Reviewed her medical history and medications. Offered and received IM injection of orphenadrine. Encouraged to milk pickup truck driver prescription in the morning. Also encouraged to follow-up with primary care. If not improving may benefit from PT referral, possible dry needling. Return precautions provided. Medical Records Medical records reviewed: Yes I reviewed the patient's medical records. 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 cataract, bilateral (Acute) [place] 09/16/23 Elevated MCV (Acute) folate & B12 normal Adjustment disorder with depressed mood (Acute ~04/2023) Osteoporosis of forearm (Chronic ~05/09/22) started alendronate 04/2022 Medical History Adenocarcinoma of pancreas (~09/2022) Hyperlipidemia Hypothyroidism s/p thyroidectomy--lifetime replacement Essential hypertension Type 2 diabetes mellitus with hyperglycemia, with long-term current use of insulin s/p pancreatic cancer; [facility] Endo 03/27/23 GERD (gastroesophageal reflux disease) restarted PPI 2023 Neuropathy Chemo-related likely; LT gabapentin 100mg HS ([facility] Onc) Left leg DVT (~10/2022) [facility] onc RX Apix Depression, major, recurrent, mild (~10/2021) Citalopram discont secondary to interaction with chemo 09/2022 Diverticulosis (~01/2021) PONV (postoperative nausea and vomiting) Pt. states she gets violently ill r/t anesthesia. Stated with previous colonoscopy she was okay High grade dysplasia in colonic adenoma Migraine Surgical History History of Whipple procedure AT [facility] 03/11/2023 with Lymphadenectomy of multiple abdominal nodes. S/P ERCP (02/02/23) [facility]-biliary stent placed into common bile duct Status post arthroscopy of right shoulder (~2020) History of bilateral ligation of fallopian tubes Status post phlebectomy Status post thyroidectomy s/p suspicious bx Status post tonsillectomy H/O flexible sigmoidoscopy H/O colonoscopy (~01/2021) Family History Mother , 75 Diabetes Essential hypertension Alzheimer disease Hyperlipidemia Father , 72 Diabetes Essential hypertension Depression Hyperlipidemia Neoplasm LIVER Liver cancer Brother Essential hypertension Lung cancer Throat cancer Brother Essential hypertension Depression Heart disease Maternal Grandfather , 72 No problems noted. Paternal Grandfather No problems noted. Maternal Grandmother , 50 Heart disease Paternal Grandmother , 69 No problems noted. Brother Essential hypertension Depression Brother Depression Heart disease Maternal Aunt Breast cancer Social History Smoking/Tobacco Use Status: Former Tobacco Use Quit Date: 10/19/99 Pack-years: 15 Tobacco: How many years used: 10 Quit status: quit date established Second Hand Exposure: Yes Smoking risk assessment performed?: Yes Alcohol Intake: current Alcohol Intake frequency: a few times a month Alcohol type: beer, wine and hard liquor Drug use: Never Substance use type: does not use Details: alcohol: t-5 Adopted: No Caregiver/Support person: No Foster care: No Household members: spouse Housing: house Number of Children: 3 number of grandchildren: 4 Communication Needs: Hard of Hearing and Corrective Lenses Education Level: high school Do you need help understanding health information?: Rarely 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 [employer] Pets and animals: Yes Pets and animals: dog(s) Sexually active: No Do you think of yourself as: straight/heterosexual Current gender identity: female What is your relationship status?: How often do you talk on the phone with friends or family?: three or more times per week How often do you get together with friends or relatives?: once per week How often do you attend spiritism or christian services?: 1-3 times per year Do you belong to any clubs or organized social groups?: no Panel score (0-1 are the most socially isolated patients): 2 What type of physical activity do you participate in: walking Duration: 15-30 minutes/day Frequency: daily Christy/Orthodox: Denominational Special christy needs: No Seatbelt use: always Helmet use: No Drive intox or ride w/intox school bus driver/custodian: No Do you feel safe at home: Yes Do you feel safe in your relationship?: Yes Additional Social history: Enjoys attending grandchildren's sports
[2024-05-22 22:38] VITALS: BP 163/100; PULSE 68; RESP 12; TEMP 36.4; O2SAT 100
[2024-05-22] MEDS: Orphenadrine 60 MG/2 ML VIAL IM (23:59)
== END 2024-05-23 00:02 | disposition home or self-care (01) ==
LOC: ER 23:06 → RED 05-23 00:02
PROVIDERS: Emergency Provider Emergency Medicine; PCP Nurse Practitioner Adult Health
DX: M25.511 Pain in right shoulder (principal); M79.601 Pain in right arm; M62.838 Other muscle spasm; E78.5 Hyperlipidemia, unspecified; E03.9 Hypothyroidism, unspecified; I10 Essential (primary) hypertension; E11.40 Type 2 diabetes mellitus with diabetic neuropathy, unspecified; Z86.718 Personal history of other venous thrombosis and embolism; Z85.07 Personal history of malignant neoplasm of pancreas; Z92.21 Personal history of antineoplastic chemotherapy; Z87.891 Personal history of nicotine dependence
CPT/HCPCS: 96372; 99284; J2360; 99283

== ENCOUNTER 2024-05-25 02:35 | Emergency (ER) | payer BC, SELFPAY ==
[2024-05-25 02:41] VITALS: BP 191/118; PULSE 74; RESP 16; TEMP 36.8; O2SAT 99
--- NOTE | 2024-05-25 03:20 | W.ED.GENAD ---
Discharge Plan Disposition Patient Disposition: Home Condition: Good Discharge Details Clinical Impression: Acute shoulder pain, Muscle spasm Primary Care Provider: Izzy Oropeza ED Provider: Ness Linda Home Meds and New Rx's Prescriptions: New cyclobenzaprine 5 mg tablet 5 mg PO BID Qty: 6 0RF diazepam 5 mg tablet 5 mg PO QHS PRNQty: 3 0RF Continued (DME) FreeStyle [place] 2 Sensor Kit See Rx Instructions .Route Qty: 12 1RF Rx Instructions: As directed, DX: E11.65 levothyroxine 88 mcg tablet 88 mcg PO . Qty: 45 3RF Rx Instructions: Dose change 2023 levothyroxine 75 mcg tablet 75 mcg PO . Qty: 40 3RF valacyclovir 1 gram tablet 2,000 mg PO BID PRN (Reason: cold sores) Qty: 28 1RF Rx Instructions: take 2 tablets at onset on symptoms and repeat once, 12 hours later losartan 100 mg tablet 50 mg PO DAILY Qty: 90 3RF Rx Instructions: Dose reduction to 50mg daily 05/18/24 for BP <140/90 omeprazole 20 mg capsule,delayed release(DR/EC) 20 mg PO .daily in AM Qty: 90 3RF Rx Instructions: Take on empty stomach Creon 24,000-76,000 -120,000 unit capsule,delayed release(DR/EC) 2 cap PO TID Patient Comments: Pt is taking 36,000 units now--3 tabs with a full meal and 1 tab with a snack or if it's a small snack she will use 24,000 units--Per pt 08/20/23 atorvastatin 20 mg tablet 20 mg PO QHS Qty: 90 3RF bupropion HCl 300 mg tablet extended release 24 hr 300 mg PO QAM Qty: 90 3RF (DME) blood sugar diagnostic Strip See Rx Instructions .Route Rx Instructions: As directed One Touch Verio system 3 times a day (DME) lancets 30 gauge misc See Rx Instructions .Route Rx Instructions: use one three times a day (DME) insulin syringes (disposable) 1 mL syringe See Rx Instructions .Route Rx Instructions: use one syringe 3 times a day (DME) FreeStyle [place] 2 [place] Misc See Rx Instructions .Route Qty: 1 0RF Rx Instructions: As directed, DX E11.65 polyethylene glycol 3350 17 gram/dose powder 238 g PO ONCE Qty: 238 0RF Rx Instructions: take per colonoscopy instructions bisacodyl [Dulcolax (bisacodyl)] 5 mg tablet,delayed release (DR/EC) 5 mg PO ONCE Qty: 4 0RF Rx Instructions: take per colonoscopy instructions mirtazapine 7.5 mg tablet See Rx Instructions .ROUTE .COMPLEX Qty: 90 1RF Dose Instruction: TAKE ONE TABLET BY MOUTH AT BEDTIME Rx Instructions: TAKE ONE TABLET BY MOUTH AT BEDTIME acetaminophen [Tylenol Extra Strength] 500 mg tablet 500 mg PO Q6H PRNQty: 90 0RF Discontinued cyclobenzaprine 10 mg tablet 10 mg PO TID Discharge Instructions Instructions: Muscle Spasm ED Additional Instructions: Use your sling at home. Tylenol over the counter; follow the directions on the bottle. You can take 5mg of cyclobenzaprine twice a day as needed for pain and spasm. You can also take 5mg of diazapam at bedtime. Do not drive while you are on these medications. Do not take more than prescribed as they can cause you to slow or stop breathing, or to fall. Call your primary care doctor today to schedule an appointment within 72 hours to followup on your visit here. Return to the emergency department for new or worsening symptoms including numbness, weakness, or if you have any other concerns. Referrals: Izzy Oropeza AUDIO VIDEO TECH [Primary Care Provider] - [facility] General Mode of arrival: ambulatory. Date/Time Provider Initiated Documentation: 05/25/24 02:38. Limitations to Documentation: no limitations. Information obtained by: patient. HPI Narrative: 73yo F presenting with atraumatic right shoulder pain. Symptoms started 5 days ago the morning after she spent the day lifting boxes. Pain starts in her right shoulder and radiates down to her right elbow. Worse with movement. Keeping her up at night. Seen in this ED several days ago for same, diagnosed with trapexius spasm and discharged with cyclobenzaprine. Initially seemed to help (as did using a sling at home) however tonight pain is worse and preventing her from sleeping. No numbness, tingling, or weakness. No neck pain. Has not seen her PCP for this; did send message in the pt portal [employer]. She is otherwise in her usual state of health. Related Data Home Medications ?Medication ?Instructions ?Recorded ?Confirmed acetaminophen 500 mg tablet 500 mg PO Q6H PRN #90 tabs 05/22/21 05/25/24 (Tylenol Extra Strength) blood sugar diagnostic 03/24/23 05/25/24 insulin syringes (disposable) 1 mL 03/24/23 05/25/24 lancets 30 gauge 03/24/23 05/25/24 flash glucose scanning reader #1 ea 05/06/23 05/25/24 (FreeStyle [place] 2 [place]) atorvastatin 20 mg tablet 20 mg PO QHS #90 tabs 07/20/23 05/25/24 bupropion HCl 300 mg 24 hr tablet, 300 mg PO QAM #90 tabs 07/20/23 05/25/24 extended release flash glucose sensor (FreeStyle #12 ea 08/20/23 05/25/24 Vernon 2 Sensor kit) nxyqbu-psmwztyn-fgsopmr 2 cap PO TID 08/20/23 05/25/24 24,000-76,000-120,000 unit capsule,delayed rel (Creon) levothyroxine 88 mcg tablet 88 mcg PO .B-KK-Wza-Sun #45 02/15/24 05/25/24 tab-caps bisacodyl 5 mg tablet,delayed 5 mg PO ONCE colonscopy bowel prep 05/05/24 05/25/24 release (Dulcolax (bisacodyl)) #4 tabs polyethylene glycol 3350 17 238 g PO ONCE colonoscopy prep 05/05/24 05/25/24 gram/dose oral powder #238 grams mirtazapine 7.5 mg tablet See Rx Instructions .Route 05/16/24 05/25/24 .COMPLEX #90 tabs levothyroxine 75 mcg tablet 75 mcg PO .M-W-F #40 tab-caps 05/18/24 05/25/24 losartan 100 mg tablet 50 mg (1/2 x 100 mg) PO DAILY #90 05/18/24 05/25/24 tabs omeprazole 20 mg capsule,delayed 20 mg PO .daily in AM #90 caps 05/18/24 05/25/24 release valacyclovir 1 gram tablet 2,000 mg (2 x 1 gram) PO BID PRN 05/18/24 05/25/24 cold sores #28 tabs cyclobenzaprine 5 mg tablet 5 mg PO BID #6 tabs 05/25/24 diazepam 5 mg tablet 5 mg PO QHS PRN #3 tabs 05/25/24 Previous Rx's ?Medication ?Instructions ?Recorded acetaminophen 500 mg tablet 500 mg PO Q6H PRN #90 tabs 05/22/21 (Tylenol Extra Strength) flash glucose scanning reader #1 ea 05/06/23 (FreeStyle [place] 2 [place]) atorvastatin 20 mg tablet 20 mg PO QHS #90 tabs 07/20/23 bupropion HCl 300 mg 24 hr tablet, 300 mg PO QAM #90 tabs 07/20/23 extended release flash glucose sensor (FreeStyle #12 ea 08/20/23 Vernon 2 Sensor kit) levothyroxine 88 mcg tablet 88 mcg PO .E-WH-Bgq-[place] #45 02/15/24 tab-caps bisacodyl 5 mg tablet,delayed 5 mg PO ONCE colonscopy bowel prep 05/05/24 release (Dulcolax (bisacodyl)) #4 tabs polyethylene glycol 3350 17 238 g PO ONCE colonoscopy prep 05/05/24 gram/dose oral powder #238 grams mirtazapine 7.5 mg tablet See Rx Instructions .Route 05/16/24 .COMPLEX #90 tabs levothyroxine 75 mcg tablet 75 mcg PO .M-W-F #40 tab-caps 05/18/24 losartan 100 mg tablet 50 mg (1/2 x 100 mg) PO DAILY #90 05/18/24 tabs omeprazole 20 mg capsule,delayed 20 mg PO .daily in AM #90 caps 05/18/24 release valacyclovir 1 gram tablet 2,000 mg (2 x 1 gram) PO BID PRN 05/18/24 cold sores #28 tabs cyclobenzaprine 5 mg tablet 5 mg PO BID #6 tabs 05/25/24 diazepam 5 mg tablet 5 mg PO QHS PRN #3 tabs 05/25/24 Allergies Allergy/AdvReac Type Severity Reaction Status Date / Time hydrocodone (From Vicodin) AdvReac Intermediate Nausea and Verified 05/25/24 02:40 vomiting oxycodone (From Percocet) AdvReac Intermediate nausea and Verified 05/25/24 02:40 vomitting General Stated Complaint: Recheck SARA: 4 Review of Systems Narrative: see HPI Course Vital Signs Vital signs: Vital Signs Temperature 36.8 C 05/25/24 02:41 Pulse 74 05/25/24 02:41 Respiratory Rate 16 05/25/24 02:41 Blood Pressure 191/118 H 05/25/24 02:41 Pulse Oximetry 99 05/25/24 02:41 Temperature 36.8 C 05/25/24 02:41 Temperature Source Temporal Artery Scan 05/25/24 02:41 Pulse 74 05/25/24 02:41 Respiratory Rate 16 05/25/24 02:41 Respiratory Effort Normal 05/25/24 02:45 Blood Pressure 191/118 H 05/25/24 02:41 Blood Pressure Position Sitting 05/25/24 02:41 Pulse Oximetry 99 05/25/24 02:41 Oxygen Delivery Method Room Air 05/25/24 02:41 Oxygen Flow Rate 0 05/25/24 02:41 Pain Level 10 05/25/24 02:41 Medical Decision Making 73yo F presenting with atraumatic right shoulder pain for 5 days; evaluated in this ED several days ago (ED visit note reviewed) and discharged with cyclobenzaprine. Pain worse tonight and keeping her awake. Systemically well, no neurologic symptoms Vitals signs reassuring on arrival and normal neurovascular exam or RUE. She does have muscular tenderness to palpation of her bicep and trapezius, some palpable trapezius spasm. Full ROM at shoulder (albeit painful). No bony tenderness. No history trauma, falls, or injury; no indication for imaging. Will try tylenol, toradol, lidocaine patch; given failure of cyclobenzaprine will try dose of valium in the ED (pt able to drive her home). On reassessment patient reports pain has improved. Advised discharge home and PCP followup. Patient does not think her primary care doctor will be able to see her today or tomorrow, has had difficulties in getting appointments in the past. I stressed the importance of primary care evaluating her and treating going forward, she is hesitant but voices understanding of my recommendations. I am hesitant to prescribe valium for home given her age and risk for falls/adverse effects; shared decision making with patient and discussed risks. She does not think she can manage pain at home without it and verbalizes understanding of the risks. Will prescribe three day course of bedtime valium, additional three days of cyclobenzaprine for the day time as she is out. Will need to followup with PCP within 72 hours for further care. Discharged home; discharge instructions and return precautions were reviewed with patient who verbalized understanding. All questions were answered and she is in full agreement with the plan. Quality:[facility] Health Related Social Needs: No Data to Display PFSH All Active Problems (Updated 05/25/24 @ 04:32 by Ness Linda MD) Muscle spasm (Acute) Acute shoulder pain (Acute) Spasm of right trapezius muscle (Acute) Tendinitis of long head of biceps brachii of right shoulder (Acute) SLAP lesion of right shoulder (Acute) History of tobacco use (Acute) Varicose veins of both lower extremities (Acute) Stiffness of left hand joint (Acute) History of chemotherapy (Acute) completed in August, (Pancreatic Ca, s/p Whipple Procedure) Combined forms of age-related cataract, bilateral (Acute) [place] 09/16/23 Elevated MCV (Acute) folate & B12 normal Adjustment disorder with depressed mood (Acute ~04/2023) Osteoporosis of forearm (Chronic ~05/09/22) started alendronate 04/2022 Medical History Adenocarcinoma of pancreas (~09/2022) Hyperlipidemia Hypothyroidism s/p thyroidectomy--lifetime replacement Essential hypertension Type 2 diabetes mellitus with hyperglycemia, with long-term current use of insulin s/p pancreatic cancer; [facility] [place] GERD (gastroesophageal reflux disease) restarted PPI 2023 Neuropathy Chemo-related likely; LT gabapentin 100mg HS ([facility] [place]) Left leg DVT (~10/2022) [facility] [place] RX Apix Depression, major, recurrent, mild (~10/2021) Citalopram discont secondary to interaction with chemo 09/2022 Diverticulosis (~01/2021) PONV (postoperative nausea and vomiting) Pt. states she gets violently ill r/t anesthesia. Stated with previous colonoscopy she was okay High grade dysplasia in colonic adenoma Migraine Surgical History History of Whipple procedure [place] [facility] [place]2023 with Lymphadenectomy of multiple abdominal nodes. S/P ERCP (02/02/23) [facility] [place] placed into common bile duct Status post arthroscopy of right shoulder (~2020) History of bilateral ligation of fallopian tubes Status post phlebectomy Status post thyroidectomy s/p suspicious bx Status post tonsillectomy H/O flexible sigmoidoscopy H/O colonoscopy (~01/2021) Family History Mother , 75 Diabetes Essential hypertension Alzheimer disease Hyperlipidemia Father , 72 Diabetes Essential hypertension Depression Hyperlipidemia Neoplasm LIVER Liver cancer Brother Essential hypertension Lung cancer Throat cancer Brother Essential hypertension Depression Heart disease Maternal Grandfather , 72 No problems noted. Paternal Grandfather No problems noted. Maternal Grandmother , 50 Heart disease Paternal Grandmother , 69 No problems noted. Brother Essential hypertension Depression Brother Depression Heart disease Maternal Aunt Breast cancer Social History Smoking/Tobacco Use Status: Former Tobacco Use Quit Date: 10/19/99 Pack-years: 15 Tobacco: How many years used: 10 Quit status: quit date established Second Hand Exposure: Yes Smoking risk assessment performed?: Yes Alcohol Intake: current Alcohol Intake frequency: a few times a month Alcohol type: beer, wine and hard liquor Drug use: Never Substance use type: does not use Details: alcohol: t-5 Adopted: No Caregiver/Support person: No Foster care: No Household members: spouse Housing: house Number of Children: 3 number of grandchildren: 4 Communication Needs: Hard of Hearing and Corrective Lenses Education Level: high school Do you need help understanding health information?: Rarely 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 [employer] Pets and animals: Yes Pets and animals: dog(s) Sexually active: No Do you think of yourself as: straight/heterosexual Current gender identity: female What is your relationship status?: How often do you talk on the phone with friends or family?: three or more times per week How often do you get together with friends or relatives?: once per week How often do you attend faith or jehovah's witness services?: 1-3 times per year Do you belong to any clubs or organized social groups?: no Panel score (0-1 are the most socially isolated patients): 2 What type of physical activity do you participate in: walking Duration: 15-30 minutes/day Frequency: daily Christy/Yazidism: Presybeterian Special christy needs: No Seatbelt use: always Helmet use: No Drive intox or ride w/intox operator and truck driver: No Do you feel safe at home: Yes Do you feel safe in your relationship?: Yes Additional Social history: Enjoys attending grandchildren's sports
[2024-05-25] MEDS: Acetaminophen 500 MG TAB 1000 MG PO (03:26)
[2024-05-25] MEDS: diazePAM 2 MG TAB PO (03:26)
[2024-05-25] MEDS: Ketorolac 15 MG/ML VIAL IM (03:27)
[2024-05-25] MEDS: Lidocaine 5% Patch 1 PATCH TP (03:49)
== END 2024-05-25 04:38 | disposition home or self-care (01) ==
PROVIDERS: Emergency Provider Student in an Organized Health Care Education/Training Program; PCP Nurse Practitioner Adult Health
DX: M25.511 Pain in right shoulder (principal); M62.838 Other muscle spasm; I10 Essential (primary) hypertension; E78.5 Hyperlipidemia, unspecified; E11.9 Type 2 diabetes mellitus without complications; Z86.718 Personal history of other venous thrombosis and embolism; Z79.4 Long term (current) use of insulin; Z79.899 Other long term (current) drug therapy
CPT/HCPCS: 99283; J1885

== ENCOUNTER 2024-06-01 15:44 | Outpatient (CLI) | payer BC, SELFPAY ==
--- NOTE | 2024-06-01 14:45 | DI.RAD_ITS ---
Exam(s) XR SHOULDER RT COMPLETE 2+V EXAM: XR SHOULDER RT COMPLETE 2+V CLINICAL HISTORY: RIGHT SHOULDER PAIN. TECHNIQUE: 2D digital imaging was performed. COMPARISON: CR XR SHOULDER RT COMPLETE 2+V from 01/28/2021 FINDINGS: 3 views No evidence of fracture or dislocation of the glenohumeral joint and no obvious degenerative changes in this articulation. No abnormal soft tissue calcifications in the subacromial space. There is significant widening and offset of the AC joint evident, significantly more than was evident in January 2021. No obvious clavicle fracture evident. IMPRESSION: Dislocation of the AC joint now evident. No obvious fractures Glenohumeral joint appears unremarkable. DATA REPOSITORY: RADIATION DOSE DELIVERED:
== END 2024-06-01 15:45 | disposition home or self-care (01) ==
LOC: DIORS 15:44
PROVIDERS: PCP Nurse Practitioner Adult Health; Visit Provider Student in an Organized Health Care Education/Training Program
DX: S43.121A Dislocation of right acromioclavicular joint, 100%-200% displacement, initial encounter (principal); X58.XXXA Exposure to other specified factors, initial encounter
CPT/HCPCS: 73030

== ENCOUNTER 2024-06-03 11:32 | Emergency (ER) | payer BC, SELFPAY ==
[2024-06-03] VITALS (12 sets, daily range): BP systolic 171–197; BP diastolic 100–130; PULSE 87–101; RESP 12–26; TEMP 36.9; O2SAT 96–100
--- NOTE | 2024-06-03 11:30 | RT.EKG_ITS ---
APPROVED REPORT Exam: Resting ECG Reason for Exam: Stroke Patient Location: E HR:88 bpm ECG Measurements Heart Rate 88 AXIS IL 144 P 77 QRSd 86 QRS -5 QT 420 T 29 QTc 509 Conclusion Sinus rhythm Prolongued QTc No STEMI
--- NOTE | 2024-06-03 11:30 | DI.CT_ITS ---
Exam(s) CT BRAIN NECK CTA EXAM: CT BRAIN NECK CTA CLINICAL HISTORY: Stroke. TECHNIQUE: Imaging Protocol: Axial CT angiography was performed with multi-slice acquisition and mu lti-planar and/or 3D reconstructions. CONTRAST MATERIAL: Intravenous: Omnipaque 350 contrast volume:70 mL COMPARISON: No priors for comparison. FINDINGS: CT Head W/O and W: Ventricles and Extra axial spaces: Normal in size and morphology for the patient's age. Hemorrhage: None. Cerebral parenchyma: There are areas of decreased attenuation in the white matter consistent with chr onic microvascular ischemic disease. No acute territorial infarct is identified at this time. No ma ss effect is appreciated. Midline shift: None. Brainstem/Cerebellum: Normal. Calvarium: Normal. Visualized Paranasal sinuses/Mastoids: Clear. Soft Tissues: Unremarkable. Enhancement: Unremarkable. CTA Neck W: Common Carotid: Right: No dissection, occlusion or significant stenosis. Left: No dissection, occlusion or significant stenosis. External Carotid: Right: No occlusion or significant stenosis. Left: No occlusion or significant stenosis. Internal Carotid: Right: No dissection, occlusion or significant stenosis. Left: No dissection, occlusion or significant stenosis. Vertebral Artery: Right: No dissection, occlusion or significant stenosis. Left: No dissection, occlusion or significant stenosis. Lung Apices: No focal consolidating infiltrates. No apical pneumothorax. Bones: Within normal limits for the patient's age. Soft Tissues: Normal. CTA Brain W: Internal Carotid Arteries: Normal. Anterior Cerebral Arteries: Right: No aneurysm, occlusion or significant stenosis. Left: No aneurysm, occlusion or significant stenosis. Middle Cerebral Arteries: Right: No aneurysm, occlusion or significant stenosis. Left: No aneurysm, occlusion or significant stenosis. Posterior Cerebral Arteries: Right: No aneurysm, occlusion or significant stenosis. Left: No aneurysm, occlusion or significant stenosis. Vertebral Arteries: Right: No aneurysm, occlusion or significant stenosis. Left: No aneurysm, occlusion or significant stenosis. Basilar Artery: No aneurysm, occlusion or significant stenosis. IMPRESSION: 1. No large vessel occlusion or significant stenosis on the CT angiography of the head. 2. No acute intracranial process. 3. No occlusion or significant stenosis on the CT angiography of the neck. RADIATION DOSE DELIVERED: Total DLP DATA REPOSITORY: All CT scans at this facility are submitted to the National Radiology Data Registry (NRDR) Dose Index Registry (DIR) with the [employer] (ACR). RADIATION OPTIMIZATION: All CT scans at this facility use at least one of these dose optimization te chniques: automated exposure control; mA and/or kV adjustment per patient size (includes targeted exa ms where dose is matched to clinical indication); or iterative reconstruction.
--- NOTE | 2024-06-03 11:53 | ED.GENADUL_ITS ---
Discharge Plan Disposition Patient Disposition: Home Condition: Stable Discharge Details Clinical Impression: Right-sided Swanson's palsy, Shoulder pain, right, Hypertension Primary Care Provider: Izzy Oropeza ED Provider: Jamilah Cohen Home Meds and New Rx's Prescriptions: New prednisone 20 mg tablet 60 mg PO DAILY 7 Days Qty: 21 0RF valacyclovir 1 gram tablet 1,000 mg PO TID 7 Days Qty: 21 0RF No Action (DME) FreeStyle Vernon 2 Sensor Kit See Rx Instructions .Route Qty: 12 1RF Rx Instructions: As directed, DX: E11.65 levothyroxine 88 mcg tablet 88 mcg PO . Qty: 45 3RF Rx Instructions: Dose change 2023 levothyroxine 75 mcg tablet 75 mcg PO . Qty: 40 3RF valacyclovir 1 gram tablet 2,000 mg PO BID PRN (Reason: cold sores) Qty: 28 1RF Rx Instructions: take 2 tablets at onset on symptoms and repeat once, 12 hours later losartan 100 mg tablet 50 mg PO DAILY Qty: 90 3RF Rx Instructions: Dose reduction to 50mg daily 05/18/24 for BP <140/90 omeprazole 20 mg capsule,delayed release(DR/EC) 20 mg PO .daily in AM Qty: 90 3RF Rx Instructions: Take on empty stomach celecoxib [Celebrex] 100 mg capsule 100 mg PO BID Qty: 28 0RF Creon 24,000-76,000 -120,000 unit capsule,delayed release(DR/EC) 2 cap PO TID Patient Comments: Pt is taking 36,000 units now--3 tabs with a full meal and 1 tab with a snack or if it's a small snack she will use 24,000 units--Per pt 08/20/23 atorvastatin 20 mg tablet 20 mg PO QHS Qty: 90 3RF bupropion HCl 300 mg tablet extended release 24 hr 300 mg PO QAM Qty: 90 3RF (DME) blood sugar diagnostic Strip See Rx Instructions .Route Rx Instructions: As directed One Touch Verio system 3 times a day (DME) lancets 30 gauge misc See Rx Instructions .Route Rx Instructions: use one three times a day (DME) insulin syringes (disposable) 1 mL syringe See Rx Instructions .Route Rx Instructions: use one syringe 3 times a day (DME) FreeStyle [place] 2 [place] [facility] See Rx Instructions .Route Qty: 1 0RF Rx Instructions: As directed, DX E11.65 polyethylene glycol 3350 17 gram/dose powder 238 g PO ONCE Qty: 238 0RF Rx Instructions: take per colonoscopy instructions bisacodyl [Dulcolax (bisacodyl)] 5 mg tablet,delayed release (DR/EC) 5 mg PO ONCE Qty: 4 0RF Rx Instructions: take per colonoscopy instructions mirtazapine 7.5 mg tablet See Rx Instructions .ROUTE .COMPLEX Qty: 90 1RF Dose Instruction: TAKE ONE TABLET BY MOUTH AT BEDTIME Rx Instructions: TAKE ONE TABLET BY MOUTH AT BEDTIME ketorolac 10 mg tablet 10 mg PO Q8H PRN (Reason: pain) Qty: 15 0RF Rx Instructions: maximum total duration of 5 days. DO NOT TAKE WITH OTHER NSAIDS. TAKE WITH FOOD. DO NOT EXCEED PRESCRIBED DOSE. cyclobenzaprine 5 mg tablet 5 mg PO BID Qty: 6 0RF diazepam 5 mg tablet 5 mg PO QHS PRNQty: 3 0RF acetaminophen [Tylenol Extra Strength] 500 mg tablet 500 mg PO Q6H PRNQty: 90 0RF Discharge Instructions Instructions: Swanson's palsy Additional Instructions: You were seen in the emergency department today for evaluation of facial droop concerning for stroke. You did have a full stroke evaluation and met with one of the neurologist from [facility], and reassuringly we found that you were not experiencing a stroke, but did have evidence of Swanson's palsy, a weakness of the facial nerve. This is sometimes caused by infections such as tickborne disease and viruses, and for this reason we have started you on 2 medications, an antiviral called valacyclovir and a steroid called prednisone to reduce inflammation. Please take both of these medications as prescribed for the next week even if you start feeling better. Some people with Swanson's palsy find that their eye becomes very dry and uncomfortable, and if this is the case you may choose to tape your eye closed and use [id number]-[id number] artificial tears. The steroids may help the discomfort in your shoulder due to your rotator cuff, but while you are taking the steroid I would recommend avoiding nonsteroidal anti-inflammatory medications such as your Toradol, Celebrex ibuprofen. You can continue to use Tylenol, and should continue to follow-up with your orthopedic doctor as recommended. For your difficulty sleeping you can trial [id number] melatonin. You need to follow-up with your primary care provider in the next few days to discuss this visit and any symptoms that change, worsen, or persist. Reasons to come back to the emergency department include fever chills, change in r esponsiveness, change in vision, and any other symptoms that cause you concern. Thank you for allowing us to be part of your care. HPI General Date/Time Provider Initiated Documentation: 06/03/24 11:42 . Limitations to Documentation: no limitations . Information obtained by: patient and family . HPI Narrative: MDM: In brief, this is a 73-year-old female patient with history of recent shoulder and rotator cuff injuries, presenting for evaluation of facial droop. The patient met criteria for stroke activation was taking from triage to the CT scanner for evaluation. Her last known well is not definitively known, patient went to bed at 430 and felt largely well, though she was not seen by her family by many hours prior to that. My differential includes but is not limited to acute stroke, intracranial hemorrhage, vascular abnormality, certainly considered intracranial mass, no seizure history or reported seizure activity to suggest Jordan's paralysis. The patient has forehead sparing, making Swanson's p alsy/Lyme disease less likely. No prior stroke to suggest recrudescence. ED Course: I independently interpreted the patient's CT imaging, which shows no evidence of intracranial hemorrhage, large vessel occlusion, or other abnormalities to account for her symptoms. I independently interpreted the laboratory studies, which show no significant leukocytosis, anemia, or thrombocytopenia. The chemistry panel is without evidence of electrolyte abnormality, kidney dysfunction, or liver injury. [facility] [place] discussed and evaluated the patient and I discussed the plan of care with them, they are most concerned for a Swanson's palsy and recommended inflammatory markers, vitamin B12 (which were obtained and were normal) as well as tickborne illness panel. They recommended loading the patient with aspirin and Plavix, and stated that if the patient's stroke evaluation and MRI was negative, that we did not need to continue these medications and could instead treat for Swanson's palsy. They recommended an MRI with and without, which showed no evidence of acute stroke, no acoustic neuromas or other mass effect changes. On reassessment the patient remains with right-sided facial droop, has not had worsening of her symptoms. Her hypertension has persisted while in the ED. I had an extended discussion with the patient and the family, she had the findings noted above, and the recommendations to start the patient on prednisone and valacyclovir daily for the next 7 days. The patient is concerned about her rotator cuff and shoulder pain, which is being adequately worked up by orthopedi cs in the outpatient environment. I did recommend based on her history of Whipple surgery to avoid NSAID medications while on steroids. The patient's insomnia I recommended melatonin and continuing her mirtazapine. At this time, the patient has had a full medical evaluation and is safe for discharge to home. They are hemodynamically stable, ambulatory, and tolerating PO. They are understanding of the follow-up plan and return precautions. They left our facility without incident. Jamilah Cohen MD HPI: This is a 73-year-old female patient with a history of rotator cuff issues presenting for evaluation of right-sided facial droop. History is obtained from the patient and her granddaughter who is at bedside. The patient reports that she was in her normal state of health other than the shoulder issues, and family thought that her face looked typical for her last night. The patient reports that she had difficulties falling asleep and was awake until 430, but felt largely in her normal state of health until that time. On awakening at 7:30 AM the patient was noted to have right-sided facial droop and states that she could not drink out of a straw even though she was typically able to do that. She was noted by family to have some mild slurring of the speech. She does not feel any new tingling though has some baseline tingling in her arm from her rotator cuff injury. Has not noted any weakness or numbness of the lower extremities. She herself has never had a stroke in the past, denies recent trauma or injuries. She does not take any blood thinning medications but is noted to be hypertensive in triage. Exam: Gen: awake and alert, in no apparent distress. Appears well nourished. HEENT: PERRL, EOMs full and without nystagmus or gaze palsy. The patient endor ses some left eye blurriness. Has some difficulty with visual [place]wood in the bilateral upper quadrants. external ears and nose normal, mucous membranes moist. Sclera not visible when patient close his eye. Neck: Supple, full range of motion, no observable masses Lungs: No increased work of breathing, lung sounds clear and equal bilaterally without wheezes, rhonchi, or rales. CV: Heart with regular rate and rhythm, no murmurs auscultated. Strong and symmetrical radial pulses. Abdomen: Soft, nondistended, non-tended to palpation. No rigidity, rebound tenderness, or guarding. MSK: The patient has tenderness of the right shoulder and limitation in range of motion due to this pain. Otherwise, no joint swelling, no redness, no external traumatic findings. Skin: No rashes or lesions to visualized skin. Normal color, warm, and dry. Neuro: Right-sided facial droop appreciated with some forehead sparing. No sensory deficits on the right side of the face. Ocular examination as noted above. 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 No sensory deficits. Accurate targeting with left-sided bkgoea-jj-bsao, bilateral hquh-ut-ezyo's. Alert and oriented with very mild slurring of speech. Psych: Appropriate for situation. Related Data Home Medications ?Medication ?Instructions ?Recorded ?Confirmed acetaminophen 500 mg tablet 500 mg PO Q6H PRN #90 tabs 05/22/21 06/01/24 (Tylenol Extra Strength) blood sugar diagnostic 03/24/23 06/01/24 insulin syringes (disposable) 1 mL 03/24/23 06/01/24 lancets 30 gauge 03/24/23 06/01/24 flash glucose scanning reader #1 ea 05/06/23 06/01/24 (FreeStyle [place] 2 [place]) atorvastatin 20 mg tablet 20 mg PO QHS #90 tabs 07/20/23 06/01/24 bupropion HCl 300 mg 24 hr tablet, 300 mg PO QAM #90 tabs 07/20/23 06/01/24 extended release flash glucose sensor (FreeStyle #12 ea 08/20/23 06/01/24 Vernon 2 Sensor kit) cyprdk-[id number]-gvxcjtb 2 cap PO TID 08/20/23 06/01/24 24,000-76,000-120,000 unit capsule,delayed rel (Creon) levothyroxine 88 mcg tablet 88 mcg PO .Y-IJ-Lkj-Sun #45 02/15/24 06/01/24 tab-caps bisacodyl 5 mg tablet,delayed 5 mg PO ONCE colonscopy bowel prep 05/05/24 06/01/24 release (Dulcolax (bisacodyl)) #4 tabs polyethylene glycol 3350 17 238 g PO ONCE colonoscopy prep 05/05/24 06/01/24 gram/dose oral powder #238 grams mirtazapine 7.5 mg tablet See Rx Instructions .Route 05/16/24 06/01/24 .COMPLEX #90 tabs levothyroxine 75 mcg tablet 75 mcg PO . #40 tab-caps 05/18/24 06/01/24 losartan 100 mg tablet 50 mg (1/2 x 100 mg) PO DAILY #90 05/18/24 06/01/24 tabs omeprazole 20 mg capsule,delayed 20 mg PO .daily in AM #90 caps 05/18/24 06/01/24 release valacyclovir 1 gram tablet 2,000 mg (2 x 1 gram) PO BID PRN 05/18/24 06/01/24 cold sores #28 tabs cyclobenzaprine 5 mg tablet 5 mg PO BID #6 tabs 05/25/24 06/01/24 diazepam 5 mg tablet 5 mg PO QHS PRN #3 tabs 05/25/24 06/01/24 celecoxib 100 mg capsule (Celebrex) 100 mg PO BID #28 caps 05/27/24 06/01/24 ketorolac 10 mg tablet 10 mg PO Q8H PRN pain #15 tabs 06/02/24 prednisone 20 mg tablet 60 mg (3 x 20 mg) PO DAILY 7 days 06/03/24 #21 tabs valacyclovir 1 gram tablet 1,000 mg PO TID 7 days #21 tabs 06/03/24 Previous Rx's ?Medication ?Instructions ?Recorded acetaminophen 500 mg tablet 500 mg PO Q6H PRN #90 tabs 05/22/21 (Tylenol Extra Strength) flash glucose scanning reader #1 ea 05/06/23 (FreeStyle [place] 2 [place]) atorvastatin 20 mg tablet 20 mg PO QHS #90 tabs 07/20/23 bupropion HCl 300 mg 24 hr tablet, 300 mg PO QAM #90 tabs 07/20/23 extended release flash glucose sensor (FreeStyle #12 ea 08/20/23 Vernon 2 Sensor kit) levothyroxine 88 mcg tablet 88 mcg PO .Z-HA-Cad-Thu #45 02/15/24 tab-caps bisacodyl 5 mg tablet,delayed 5 mg PO ONCE colonscopy bowel prep 05/05/24 release (Dulcolax (bisacodyl)) #4 tabs polyethylene glycol 3350 17 238 g PO ONCE colonoscopy prep 05/05/24 gram/dose oral powder #238 grams mirtazapine 7.5 mg tablet See Rx Instructions .Route 05/16/24 .COMPLEX #90 tabs levothyroxine 75 mcg tablet 75 mcg PO .-- #40 tab-caps 05/18/24 losartan 100 mg tablet 50 mg (1/2 x 100 mg) PO DAILY #90 05/18/24 tabs omeprazole 20 mg capsule,delayed 20 mg PO .daily in AM #90 caps 05/18/24 release valacyclovir 1 gram tablet 2,000 mg (2 x 1 gram) PO BID PRN 05/18/24 cold sores #28 tabs cyclobenzaprine 5 mg tablet 5 mg PO BID #6 tabs 05/25/24 diazepam 5 mg tablet 5 mg PO QHS PRN #3 tabs 05/25/24 celecoxib 100 mg capsule (Celebrex) 100 mg PO BID #28 caps 05/27/24 ketorolac 10 mg tablet 10 mg PO Q8H PRN pain #15 tabs 06/02/24 prednisone 20 mg tablet 60 mg (3 x 20 mg) PO DAILY 7 days 06/03/24 #21 tabs valacyclovir 1 gram tablet 1,000 mg PO TID 7 days #21 tabs 06/03/24 Allergies Allergy/AdvReac Type Severity Reaction Status Date / Time hydrocodone (From Vicodin) AdvReac Intermediate Nausea and Verified 06/01/24 14:57 vomiting oxycodone (From Percocet) AdvReac Intermediate nausea and Verified 06/01/24 14:57 vomitting General Stated Complaint: CVA/TIA SARA: 2 Course Vital Signs Vital signs: Vital Signs Temperature 36.9 C 06/03/24 11:34 Pulse 101 H 06/03/24 11:34 Respiratory Rate 16 06/03/24 11:34 Blood Pressure 191/130 H 06/03/24 11:34 Pulse Oximetry 100 06/03/24 11:34 Temperature 36.9 C 06/03/24 11:34 Pulse 101 H 06/03/24 11:34 Respiratory Rate 16 06/03/24 11:34 Blood Pressure 191/130 H 06/03/24 11:34 Blood Pressure Position Sitting 06/03/24 11:34 Pulse Oximetry 100 06/03/24 11:34 Oxygen Delivery Method Room Air 06/03/24 11:34 Oxygen Flow Rate 0 06/03/24 11:34 Pain Level 2 06/03/24 11:34 Medical Decision Making Quality:SDOH Health Related Social Needs: No Data to Display Critical Care Time Critical Care Time Critical Care Time: Yes Total Critical Care Time: 60 Attestation: Upon my evaluation, this patient had a high probability of imminent or life- threatening deterioration due to c/f stroke, which required my direct attention, intervention, and personal management. I have personally provided 60 minutes of critical care time exclusive of time spent on separately billable procedures. Time includes review of laboratory data, radiology results, discussion with consultants, and monitoring for potential decompensation. Interventions were performed as documented above. Jamilah Cohen MD [facility] All Active Problems (Updated 06/03/24 @ 16:38 by Jamilah Cohen MD) Hypertension (Chronic) Right-sided Swanson's palsy (Acute) Rotator cuff tear, right (Acute) Decreased right shoulder range of motion (Acute) Frozen shoulder (Acute) Shoulder pain, right (Acute) Muscle spasm (Acute) Acute shoulder pain (Acute) Spasm of right trapezius muscle (Acute) Tendinitis of long head of biceps brachii of right shoulder (Acute) SLAP lesion of right shoulder (Acute) History of tobacco use (Acute) Varicose veins of both lower extremities (Acute) Stiffness of left hand joint (Acute) History of chemotherapy (Acute) completed in August, (Pancreatic Ca, s/p Whipple Procedure) Combined forms of age-related cataract, bilateral (Acute) [place] 09/16/23 Elevated MCV (Acute) folate & B12 normal Adjustment disorder with depressed mood (Acute ~04/2023) Osteoporosis of forearm (Chronic ~05/09/22) started alendronate 04/2022 Medical History Adenocarcinoma of pancreas (~09/2022) Hyperlipidemia Hypothyroidism s/p thyroidectomy--lifetime replacement Essential hypertension Type 2 diabetes mellitus with hyperglycemia, with long-term current use of insulin s/p pancreatic cancer; [facility] 03/27/23 GERD (gastroesophageal reflux disease) restarted PPI 2023 Neuropathy Chemo-related likely; LT gabapentin 100mg HS ([facility] Onc) Left leg DVT (~10/2022) [facility] onc RX Apix Depression, major, recurrent, mild (~10/2021) Citalopram discont secondary to interaction with chemo 09/2022 Diverticulosis (~01/2021) PONV (postoperative nausea and vomiting) Pt. states she gets violently ill r/t anesthesia. Stated with previous colonoscopy she was okay High grade dysplasia in colonic adenoma Migraine Surgical History History of Whipple procedure AT [facility] 03/11/2023 with Lymphadenectomy of multiple abdominal nodes. S/P ERCP (02/02/23) [facility]-biliary stent placed into common bile duct Status post arthroscopy of right shoulder (~2020) History of bilateral ligation of fallopian tubes Status post phlebectomy Status post thyroidectomy s/p suspicious bx Status post tonsillectomy H/O flexible sigmoidoscopy H/O colonoscopy (~01/2021) Family History Mother , 75 Diabetes Essential hypertension Alzheimer disease Hyperlipidemia Father , 72 Diabetes Essential hypertension Depression Hyperlipidemia Neoplasm LIVER Liver cancer Brother Essential hypertension Lung cancer Throat cancer Brother Essential hypertension Depression Heart disease Maternal Grandfather , 72 No problems noted. Paternal Grandfather No problems noted. Maternal Grandmother , 50 Heart disease Paternal Grandmother , 69 No problems noted. Brother Essential hypertension Depression Brother Depression Heart disease Maternal Aunt Breast cancer Social History Smoking/Tobacco Use Status: Former Tobacco Use Quit Date: 10/19/99 Pack-years: 15 Tobacco: How many years used: 10 Quit status: quit date established Second Hand Exposure: Yes Smoking risk assessment performed?: Yes Alcohol Intake: current Alcohol Intake frequency: a few times a month Alcohol type: beer, wine and hard liquor Drug use: Never Substance use type: does not use Details: alcohol: t-5 Adopted: No Caregiver/Support person: No Foster care: No Household members: spouse Housing: house Number of Children: 3 number of grandchildren: 4 Communication Needs: Hard of Hearing and Corrective Lenses Education Level: high school Do you need help understanding health information?: Rarely 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 [employer] Pets and animals: Yes Pets and animals: dog(s) Sexually active: No Do you think of yourself as: straight/heterosexual Current gender identity: female What is your relationship status?: How often do you talk on the phone with friends or family?: three or more times per week How often do you get together with friends or relatives?: once per week How often do you attend samaritan or taoist services?: 1-3 times per year Do you belong to any clubs or organized social groups?: no Panel score (0-1 are the most socially isolated patients): 2 What type of physical activity do you participate in: walking Duration: 15-30 minutes/day Frequency: daily Christy/Scientology: Restorationism Special christy needs: No Seatbelt use: always Helmet use: No Drive intox or ride w/intox dray driver: No Do you feel safe at home: Yes Do you feel safe in your relationship?: Yes Additional Social history: Enjoys attending grandchildren's sports
[2024-06-03] MEDS: Omnipaque 350 MG/ML 100 ML BTL 70 ML IJ (12:06)
[2024-06-03 12:30] LABS: Abs Immature Grans 0.03 10^3/uL (0.0-0.06); Absolute Basophil Count 0.03 10^3/uL (0.0-0.2); Absolute Eosinophil Count 0.08 10^3/uL (0.0-0.7); Absolute Lymphocyte Count 1.46 10^3/uL (1.2-3.4); Absolute Monocyte Count 0.77 10^3/uL (0.1-0.8); Absolute Neutrophil Count 6.31 10^3/uL (1.2-6.7); Basophils % 0.3 %; Eosinophils % 0.9 %; HCT 41.2 % (36.0-46.0); Immature Grans % 0.3 %; Lymphocytes % 16.8 %; MCHC 36.4 % (32.0-36.0); MCV 91 fL (80-95); Monocytes % 8.9 %; Neutrophils % 72.8 %; Platelet Count 324 10^3/uL (130-400); RBC 4.55 10^6/uL (3.93-5.22); RDW 12.6 % (11.7-14.6); RDW-SD 41.1 fL; WBC 8.68 10^3/uL (4.4-10.8)
[2024-06-03 12:56] LABS: ALT 21 U/L (14-59); AST 18 U/L (15-37); Albumin 3.8 g/dL (3.4-5.0); Alkaline Phosphatase 100 U/L (46-116); Anion Gap 9.1 mmol/L (3-11); BUN 11 mg/dL (7-18); Bilirubin, Total 0.66 mg/dL (0.2-1.0); CO2 30.9 mmol/L (21.0-32.0); Calcium 9.1 mg/dL (8.5-10.1); Chloride 94 mmol/L (98-107); Estimated GFR 59.86 (mL/min/1.73m2); Glucose 165 mg/dL (74-106); Magnesium 1.9 mg/dL (1.8-2.4); Sodium 134 mmol/L (136-145); Troponin I < 50 ng/L (< or =60)
--- NOTE | 2024-06-03 13:17 | DI.MRI_ITS ---
Exam(s) MR IAC BRAIN WO/W EXAM: MR IAC BRAIN WO/W CLINICAL HISTORY: Stroke vs bells palsy TECHNIQUE: Multiplanar multisequence MRI of the brain was performed. Both noninfused and contrast i nfused sequences were performed. IAC sequences performed IV Contrast injected was 13 cc Dotarem. COMPARISON: No exams were available for comparison FINDINGS: CEREBRAL PARENCHYMA: No evidence of intracranial hemorrhage, mass effect nor shift of midline structu re. No extraaxial fluid collections. Ventricles are not enlarged nor shifted. There is no significant focal signal abnormality in the cerebellar hemispheres nor within the antoni, m idbrain, and thalami. There is no abnormal signal abnormality in the periventricular white matter. DWI: No areas of restricted diffusion to suggest acute ischemic event. SWI: No microhemorrhages evident. There are no ring enhancing lesions in the brain. There is no abnormal meningeal enhancement. IAC's: There are no masses in the cerebellopontine angles and there is no evidence of intra canalicul ar acoustic neuroma-schwannoma. Seventh and 8th cranial nerves appear unremarkable within the regulatory intern al auditory canals bilaterally. PITUITARY GLAND: No mass nor parasellar abnormality. No obvious abnormality in the cavernous sinuses. FLOW VOIDS: The expected flow void are noted. No evidence of obvious aneurysm nor obvious vascular ma lformation. No evidence of venous sinus thrombosis. PARANASAL SINUSES: The visualized paranasal sinuses appear unremarkable. ORBITS: No obvious abnormal findings. IMPRESSION: 1. No significant intracranial findings on this MRI scan of the brain. 2. No abnormal enhancing intracranial findings. There are no ring enhancing lesions in the brain and there is no abnormal meningeal enhancement. 3. No significant findings in the internal auditory canals. No evidence of mass in the cerebellopon burke angles nor evidence of intra canalicular acoustic neuroma/schwannoma. Report called by myself to ER physician 06/03/2024 at 4:20 p.m. DATA REPOSITORY:
[2024-06-03 14:03] LABS: ESR 4 mm/hr (0-30)
[2024-06-03 14:10] LABS: C-Reactive Protein < 0.50 mg/dL (<or=0.5)
[2024-06-03 14:47] LABS: Vitamin B12 721 pg/mL (193-986)
[2024-06-03] MEDS: Clopidogrel 300 MG TAB 600 MG PO (14:49)
[2024-06-03] MEDS: Aspirin 325 MG TAB PO (14:49)
[2024-06-03] MEDS: Normal Saline Flush 10 ML SYR IVP (15:21)
[2024-06-03] MEDS: Gadoterate meglumine 20 ML SYRINGE 13 ML IVP (15:22)
[2024-06-06 10:54] LABS: Lyme Ab w Rflx to Lyme Confirm Positive (Negative)
[2024-06-06 13:14] LABS: Lyme IgG Ab Positive (Negative); Lyme IgM Ab Negative (Negative)
[2024-06-07 00:56] LABS: Anaplasma phagocytophilum Negative (Negative); B. miyamotoi PCR Negative (Negative); Babesia divergens/MO-1 Negative (Negative); Babesia duncani Negative (Negative); Babesia microti Negative (Negative); Ehrlichia chaffeensis Negative (Negative); Ehrlichia ewingii/canis Negative (Negative); Ehrlichia muris eauclairensis Negative (Negative)
== END 2024-06-03 16:57 | disposition home or self-care (01) ==
PROVIDERS: Emergency Provider Emergency Medicine; PCP Nurse Practitioner Adult Health
DX: G51.0 Bell's palsy; M25.511 Pain in right shoulder; I10 Essential (primary) hypertension; Z79.899 Other long term (current) drug therapy; E11.9 Type 2 diabetes mellitus without complications; K21.9 Gastro-esophageal reflux disease without esophagitis; E03.9 Hypothyroidism, unspecified
CPT/HCPCS: 70496; 70498; 70553; 80053; 82962; 85652; 86617; 87798; 93005; 96374; 99291; 82607; 83735; 84484; 85025; 86140; 86618; 93010; J3490

== ENCOUNTER 2024-06-10 08:19 | Outpatient (CLI) | payer BC, SELFPAY ==
--- NOTE | 2024-06-10 08:15 | DI.MRI_ITS ---
Exam(s) MR UPPER JOINT RT WO EXAM: MR UPPER JOINT RT WO CLINICAL HISTORY: R SHOULDER PAIN,DECREASED ROM, DROP ARM, FROZEN SHOULDER, M75.101. TECHNIQUE: Multiplanar multisequence MRI was performed. COMPARISON: Films 01 June 2024 FINDINGS: BONES: There is no fracture or contusion pattern. Prior distal clavicular resection. JOINTS:The acromioclavicular joint is normal. The glenohumeral joint shows a small amount of fluid. TENDONS: Supraspinatus: Unremarkable. Infraspinatus: Unremarkable. Subscapularis: Unremarkable. Teres Minor: Unremarkable. Biceps and [place]: Proximal biceps tendon is not visualized on the axial images. On the coronal and sagittal images are appears to have been a prior biceps tenodesis. MUSCLES: Unremarkable. GLENOID LABRUM: Unremarkable on this noncontrast examination. SOFT TISSUES: Unremarkable. OTHER: Subacromial and subdeltoid bursae shows no fluid.. IMPRESSION: Prior biceps tenodesis. Postsurgical changes of the distal clavicle. No evidence of acute rotator cuff tendon pathology. No evidence of labral tear. DATA REPOSITORY:
== END 2024-06-10 08:39 ==
PROVIDERS: PCP Nurse Practitioner Adult Health; Visit Provider Student in an Organized Health Care Education/Training Program
DX: M25.611 Stiffness of right shoulder, not elsewhere classified; Z98.890 Other specified postprocedural states
CPT/HCPCS: 73221

== ENCOUNTER 2024-06-14 15:44 | Day surgery (SDC) | payer BC, SELFPAY | END 2024-06-14 15:45 | disposition home or self-care (01) | LOC: SUR 06-15 15:44 | PROVIDERS: PCP Nurse Practitioner Adult Health; Visit Provider Surgery | DX: Z53.09 Procedure and treatment not carried out because of other contraindication (principal) ==

== ENCOUNTER 2024-06-29 03:29 | Outpatient (CLI) | payer BC, SELFPAY ==
[2024-06-29 11:13] LABS: Abs Immature Grans 0.02 10^3/uL (0.0-0.06); Absolute Basophil Count 0.03 10^3/uL (0.0-0.2); Absolute Eosinophil Count 0.11 10^3/uL (0.0-0.7); Absolute Lymphocyte Count 1.62 10^3/uL (1.2-3.4); Absolute Monocyte Count 0.37 10^3/uL (0.1-0.8); Absolute Neutrophil Count 3.86 10^3/uL (1.2-6.7); Basophils % 0.5 %; Eosinophils % 1.8 %; HCT 39.8 % (36.0-46.0); HGB 13.4 g/dL (11.2-15.7); Immature Grans % 0.3 %; MCH 33.1 pg (27.0-33.0); MCHC 33.7 % (32.0-36.0); MCV 98 fL (80-95); MPV 8.8 fL (8.0-11.0); Monocytes % 6.2 %; Neutrophils % 64.2 %; Platelet Count 295 10^3/uL (130-400); RBC 4.05 10^6/uL (3.93-5.22); RDW 14.3 % (11.7-14.6); RDW-SD 51.8 fL; WBC 6.01 10^3/uL (4.4-10.8)
[2024-06-29 11:36] LABS: ALT 38 U/L (14-59); AST 24 U/L (15-37); Albumin 3.4 g/dL (3.4-5.0); Alkaline Phosphatase 95 U/L (46-116); Anion Gap 6.8 mmol/L (3-11); BUN 14 mg/dL (7-18); Bilirubin, Total 0.54 mg/dL (0.2-1.0); CO2 32.2 mmol/L (21.0-32.0); CREATININE 0.9 mg/dL (0.55-1.02); Calcium 8.9 mg/dL (8.5-10.1); Chloride 103 mmol/L (98-107); Estimated GFR 67.92 (mL/min/1.73m2); Glucose 163 mg/dL (74-106); Potassium 3.1 mmol/L (3.5-5.1); Sodium 142 mmol/L (136-145); Total Protein 6.5 g/dL (6.4-8.2)
[2024-06-29 21:21] LABS: CA 19-9 13 U/mL (<35)
== END 2024-06-29 03:30 | disposition home or self-care (01) ==
LOC: LBO 03:30
PROVIDERS: PCP Nurse Practitioner Adult Health; Visit Provider Internal Medicine Hematology & Oncology
DX: C25.0 Malignant neoplasm of head of pancreas (principal)
CPT/HCPCS: 36415; 80053; 85025; 86301

== ENCOUNTER 2024-07-22 03:09 | Outpatient (CLI) | payer BC, SELFPAY ==
[2024-07-22 09:16] LABS: Hemoglobin A1C 7.2 % (<5.7)
[2024-07-22 09:44] LABS: Anion Gap 5.6 mmol/L (3-11); BUN 20 mg/dL (7-18); CO2 32.4 mmol/L (21.0-32.0); CREATININE 0.9 mg/dL (0.55-1.02); Calcium 9.4 mg/dL (8.5-10.1); Calculated LDL 46 mg/dL (<100); Chloride 104 mmol/L (98-107); Cholesterol 143 mg/dL (<200); Estimated GFR 67.92 (mL/min/1.73m2); Glucose 147 mg/dL (74-106); HDL Cholesterol 74 mg/dL (40-60); Potassium 3.9 mmol/L (3.5-5.1); Sodium 142 mmol/L (136-145); TSH (W/Ref FT4) 16.76 uIU/mL (0.36-3.74); Triglyceride 115 mg/dL (<150)
[2024-07-22 10:01] LABS: FREE T4 1.01 ng/dL (0.76-1.46)
[2024-07-22 10:11] LABS: COMMENT (LAB VIEW ONLY) 52.33 mg/dL; Microalb ug/mg Crea 12.2 ug/mg Cr
== END 2024-07-22 03:10 | disposition home or self-care (01) ==
LOC: LBO 03:10
PROVIDERS: Absent Provider Nurse Practitioner Adult Health; PCP Nurse Practitioner Adult Health; Referring Provider Nurse Practitioner Adult Health; Visit Provider Nurse Practitioner Adult Health
DX: I10 Essential (primary) hypertension (principal); E78.00 Pure hypercholesterolemia, unspecified; E11.65 Type 2 diabetes mellitus with hyperglycemia; Z79.4 Long term (current) use of insulin; E03.9 Hypothyroidism, unspecified
CPT/HCPCS: 36415; 80048; 80061; 82043; 82570; 83036; 84439; 84443

== ENCOUNTER 2024-08-01 02:03 | Outpatient (CLI) | payer BC, SELFPAY ==
--- NOTE | 2024-08-01 07:15 | DI.MRI_ITS ---
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 TECHNIQUE: Multiplanar multisequence MRI of the right brachial plexus was performed. CONTRAST MATERIAL: IV Contrast: 12 mL of Dotarem contrast administered. COMPARISON: CR XR SHOULDER RT COMPLETE 2+V from 06/01/2024 FINDINGS: The examination is limited due to patient motion artifact. BONES/JOINTS: No fracture or contusion pattern. There are postsurgical changes seen around the right acromioclavicular joint. The findings suggest prior resection of the distal clavicle. MUSCULOTENDINOUS STRUCTURES: There is mild hyperintense signal seen on the T2 weighted images in the supraspinatus and infraspinatus muscles. There is however no significant muscular fatty atrophy at t his time. SOFT TISSUES: There is no evidence of a soft tissue mass. OTHER FINDINGS: None. IMPRESSION: 1. Hyperintense signal seen on the T2 weighted images within the supraspinatus and infraspinatus musc les without evidence of significant muscular fatty atrophy at this time. These findings can be seen with Parsonage Springer's syndrome affecting the suprascapular nerve. 2. No evidence of a soft tissue mass or enhancing lesion. 3. Postsurgical changes seen at the acromioclavicular joint with resection of the distal clavicle. DATA REPOSITORY:
[2024-08-01] MEDS: Gadoterate meglumine 20 ML SYRINGE IVP (10:17)
[2024-08-01] MEDS: Normal Saline Flush 10 ML SYR IVP (10:18)
== END 2024-08-01 02:23 ==
LOC: DI 02:03
PROVIDERS: PCP Nurse Practitioner Adult Health; Visit Provider Psychiatry & Neurology Neurology
DX: G54.5 Neuralgic amyotrophy (principal)
CPT/HCPCS: 71552

== ENCOUNTER 2024-09-21 01:46 | Outpatient (CLI) | payer BC, SELFPAY ==
--- NOTE | 2024-09-21 | DI.CT_ITS ---
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 TECHNIQUE: Imaging Protocol: Axial computed tomography images with coronal and sagittal reformatted images were created and reviewed. Computer aided detection (CAD) was utilized. CONTRAST MATERIAL: Intravenous: Omnipaque 350 Contrast volume:100 ml Oral: yes / COMPARISON: CT CT CHEST/ABD/PEL W from 03/17/2024 FINDINGS: CHEST: Tracheobronchial tree: Patent. Pulmonary parenchyma: No consolidation or dominant measurable mass. There are few scattered tiny pul monary nodules which appear unchanged. No suspicious nodules. Pleura: No effusion or pneumothorax. Mediastinum: Within normal limits. Aorta: Thoracic portion non-dilated. Descending aorta is tortuous. Mild atherosclerotic changes. Pulmonary arteries: No visible emboli. Heart: No pericardial effusion. Bones: Unremarkable for age. No lytic or blastic lesions.No compression fractures. Soft tissues: Unremarkable. ABDOMEN and PELVIS: Liver: Normal density. No measurable mass. Gallbladder and biliary tract: Status post cholecystectomy and Whipple procedure. Tail of pancreas i s atrophic, unchanged. Biliary stent noted. No biliary dilatation. Pancreas: Status post Whipple procedure. Spleen: Normal. Kidneys: Normal size, contour and axis. No radiodense stones. No obstructive uropathy. No suspicious masses seen. Adrenal glands: No masses seen. Aorta: Abdominal portion non-dilated. Lymph nodes: Stable small mesenteric lymph nodes. Soft tissues: Unremarkable. Bladder: Unremarkable. Bowel: No obstruction or bowel wall thickening. Large quantity of stool. Fecalization of distal smal l bowel loops. Peritoneal cavity: No ascites. No focal collection. No mesenteric inflammatory response. No free ai r. Bones: Unremarkable for age. Reproductive organs: Within normal limits. IMPRESSION: No evidence of for current pancreatic mass or metastatic disease in the chest abdomen or pelvis. Status post Whipple procedure. Biliary stent. No biliary dilatation. Large quantity of fecal material. RADIATION DOSE DELIVERED: Total DLP DATA REPOSITORY: All CT scans at this facility are submitted to the National Radiology Data Registry (NRDR) Dose Index Registry (DIR) with the [employer] (ACR). RADIATION OPTIMIZATION: All CT scans at this facility use at least one of these dose optimization te chniques: automated exposure control; mA and/or kV adjustment per patient size (includes targeted exa ms where dose is matched to clinical indication); or iterative reconstruction.
[2024-09-21 08:32] LABS: Abs Immature Grans 0.01 10^3/uL (0.0-0.06); Absolute Basophil Count 0.05 10^3/uL (0.0-0.2); Absolute Eosinophil Count 0.51 10^3/uL (0.0-0.7); Absolute Lymphocyte Count 1.37 10^3/uL (1.2-3.4); Absolute Monocyte Count 0.41 10^3/uL (0.1-0.8); Absolute Neutrophil Count 2.94 10^3/uL (1.2-6.7); Basophils % 0.9 %; Eosinophils % 9.6 %; HCT 41.8 % (36.0-46.0); Immature Grans % 0.2 %; Lymphocytes % 25.9 %; MCH 32.9 pg (27.0-33.0); MCHC 33.5 % (32.0-36.0); MCV 98 fL (80-95); MPV 9.3 fL (8.0-11.0); Monocytes % 7.8 %; Neutrophils % 55.6 %; Platelet Count 315 10^3/uL (130-400); RBC 4.26 10^6/uL (3.93-5.22); RDW 11.8 % (11.7-14.6); RDW-SD 42.5 fL; WBC 5.29 10^3/uL (4.4-10.8)
[2024-09-21] MEDS: Barium Sulfate 2% W/V-Berry Smoothie 450 ML BTL PO ×2 (08:33→08:34)
[2024-09-21 08:51] LABS: ALT 26 U/L (14-59); AST 24 U/L (15-37); Albumin 3.9 g/dL (3.4-5.0); Alkaline Phosphatase 91 U/L (46-116); Anion Gap 7.5 mmol/L (3-11); BUN 16 mg/dL (7-18); Bilirubin, Total 0.64 mg/dL (0.2-1.0); CO2 31.5 mmol/L (21.0-32.0); CREATININE 0.9 mg/dL (0.55-1.02); Calcium 9.3 mg/dL (8.5-10.1); Chloride 106 mmol/L (98-107); Estimated GFR 67.92 (mL/min/1.73m2); Glucose 109 mg/dL (74-106); Potassium 4.1 mmol/L (3.5-5.1); Sodium 145 mmol/L (136-145); Total Protein 7.4 g/dL (6.4-8.2)
[2024-09-21] MEDS: Normal Saline - Diluent 50 ML VIAL IJ (10:27)
[2024-09-21] MEDS: Omnipaque 350 MG/ML 500 ML BTL-Imaging package IJ (10:29)
[2024-09-21 20:58] LABS: CA 19-9 10 U/mL (<35)
== END 2024-09-21 02:06 ==
LOC: DI 01:46
PROVIDERS: PCP Nurse Practitioner Adult Health; Visit Provider Nurse Practitioner Family
DX: C25.0 Malignant neoplasm of head of pancreas (principal)
CPT/HCPCS: 74177; 80053; 71260; 85025; 86301

== ENCOUNTER → 2024-10-20 11:13 | Outpatient (BNVA) | payer MEDICARE, SELFPAY | PROVIDERS: PCP Nurse Practitioner Adult Health; Referring Provider Nurse Practitioner Adult Health; Visit Provider Physical Therapy Assistant | DX: Z12.11 Encounter for screening for malignant neoplasm of colon (principal); I10 Essential (primary) hypertension ==

== ENCOUNTER 2024-10-31 06:03 | Day surgery (SDC) | payer MEDICARE, SELFPAY ==
[2024-10-31 06:31] VITALS: BP 147/90; PULSE 81; RESP 18; TEMP 37.1; O2SAT 98
[2024-10-31] MEDS: Lactated Ringers 1,000 ML 80 ML IV (06:39)
--- NOTE | 2024-10-31 07:20 | W.ANESPRE ---
General Info Date of Service Date Performed: 10/31/24 Height: 5 ft 3 in Weight: 59.2 kg Body Mass Index (BMI): 23.1 Surgical Procedure: Operation Date: 10/31/24 07:35 Proposed Procedure Side Surgeon p Colonoscopy Edwin Armas MD Actual Procedure Side Surgeon p Colonoscopy Not Applicable Edwin Armas MD Pre-Op Diagnosis Post-Op Diagnosis Adenocarcinoma of pancreas; screening colonoscopy Meds Allergies and Home Medications Allergies Allergy/AdvReac Type Severity Reaction Status Date / Time hydrocodone (From Vicodin) AdvReac Intermediate Nausea and Verified 10/31/24 06:21 vomiting oxycodone (From Percocet) AdvReac Intermediate nausea and Verified 10/31/24 06:21 vomitting Home Medication ?Medication ?Instructions ?Recorded acetaminophen 500 mg tablet 500 mg PO Q6H PRN #90 tabs 05/22/21 (Tylenol Extra Strength) blood sugar diagnostic 03/24/23 insulin syringes (disposable) 1 mL 03/24/23 lancets 30 gauge 03/24/23 flash glucose scanning reader #1 ea 05/06/23 (FreeStyle [place] 2 [place]) bisacodyl 5 mg tablet,delayed 5 mg PO ONCE colonscopy bowel prep 05/05/24 release (Dulcolax (bisacodyl)) #4 tabs polyethylene glycol 3350 17 238 g PO ONCE colonoscopy prep 05/05/24 gram/dose oral powder #238 grams valacyclovir 1 gram tablet 2,000 mg (2 x 1 gram) PO BID PRN 05/18/24 cold sores #28 tabs losartan 100 mg tablet 100 mg PO DAILY #90 tabs 06/15/24 pen needle, diabetic 31 gauge x #100 ea 06/15/24/16 (Easy Comfort Pen [place]) atorvastatin 20 mg tablet 20 mg PO QHS #90 tabs 07/25/24 bupropion HCl 300 mg 24 hr tablet, 300 mg PO QAM #90 tabs 07/25/24 extended release levothyroxine 75 mcg tablet 75 mcg PO .-W- #40 tab-caps 07/25/24 levothyroxine 88 mcg tablet 88 mcg PO .Q-UT-Gcm-Oneco #45 07/25/24 tab-caps insulin glargine 100 unit/mL (3 See Rx Instructions .Route 09/07/24 mL) subcutaneous pen (Lantus .COMPLEX #15 mL Solostar U-100 Insulin) flash glucose sensor (FreeStyle #12 kits 09/19/24 Vernon 2 Sensor kit) [id number]-[id number] 3 cap PO TID 10/24/24 36,000-114,000-180,000 unit capsule,delay rel (Creon) omeprazole 20 mg capsule,delayed 20 mg PO .daily in AM #90 caps 10/24/24 release amlodipine 2.5 mg tablet 2.5 mg PO HS 10/26/24 Current Visit Medications: Current Medications Generic Name Dose Route Start Last Admin Trade Name Freq PRN Reason Stop Dose Admin Ringer's Solution 1,000 mls @ 80 mls/hr 10/31/24 06:15 IV 11/30/24 06:14 INFUSION DODIE IV Miscellaneous Supplies 1 each 10/31/24 06:00 Iv Access IV 10/31/24 23:59 DIRECTED DODIE Sodium Chloride 0 ml 10/31/24 06:00 Normal Saline Flush 10 Ml Syr IV 10/31/24 23:59 PRN PRN Sodium Chloride 0 ml 10/31/24 06:00 Normal Saline 10 Ml Vial IJ 10/31/24 23:59 DIRECTED PRN Sterile Water 0 ml 10/31/24 06:00 Water,Injection,Sterile 10 Ml Vial IJ 10/31/24 23:59 DIRECTED PRN PFSH Active Problems Active Problems: Problem Status Onset Code Migraine without aura, not intractable, without status migrainosus Acute G43.009 Ulnar neuropathy at elbow of right upper extremity Acute G56.21 Carpal tunnel syndrome of right wrist Acute G56.01 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 Rotator cuff tear, right Acute M75.101 GERD (gastroesophageal reflux disease) Chronic K21.9 History of chemotherapy Acute Z92.21 Combined forms of age-related cataract, bilateral Acute H25.813 Adjustment disorder with depressed mood Acute ~04/2023 F43.21 Type 2 diabetes mellitus with hyperglycemia, with long-term current use of insulin Acute E11.65, Z79.4 Adenocarcinoma of pancreas Acute ~09/2022 C25.9 Osteoporosis of forearm Chronic ~05/09/22 M81.0 Hyperlipidemia Acute E78.5 Hypothyroidism Chronic E03.9 History of tobacco use Acute Z87.891 Essential hypertension Chronic I10 Varicose veins of both lower extremities Acute Medical History Medical History Lyme borreliosis (~05/2024) Elevated MCV folate & B12 normal Hypokalemia [facility] 07/01/24 Neuropathy Chemo-related likely; LT gabapentin 100mg HS [place] Left leg DVT (~10/2022) [facility] [place] RX Apix Depression, major, recurrent, mild (~10/2021) Citalopram discont secondary to interaction with chemo 09/2022 Diverticulosis (~01/2021) PONV (postoperative nausea and vomiting) Pt. states she gets violently ill r/t anesthesia. Stated with previous colonoscopy she was okay Does well with Scopolamine patch High grade dysplasia in colonic adenoma Migraine Surgical History Surgical History History of [place] [facility] [place] with Lymphadenectomy of multiple abdominal nodes. S/P ERCP (02/02/23) [facility] placed into common bile duct Status post arthroscopy of right shoulder (~2020) History of bilateral ligation of fallopian tubes Status post phlebectomy Status post thyroidectomy s/p suspicious bx Status post tonsillectomy H/O flexible sigmoidoscopy H/O colonoscopy (~01/2021) Tobacco Smoking/Tobacco Use Status: Former Tobacco Use Passive smoking exposure: No Second hand exposure: Yes Alcohol Alcohol Intake: current Alcohol intake frequency: a few times a month Alcohol type: beer, wine and hard liquor Substance Use Substance use: Never Substance use type: does not use Vital Signs and Lab Results Vital Signs Most Recent Vital Signs in EMR: Most Recent Vital Signs Temp Pulse Resp BP Pulse Ox 37.1 C 81 18 147/90 H 98 10/31/24 06:31 10/31/24 06:31 10/31/24 06:31 10/31/24 06:31 10/31/24 06:31 Point of Care Results Point of Care Results: Temp Pulse Resp BP Pulse Ox 37.1 C 81 18 147/90 H 98 10/31/24 06:31 10/31/24 06:31 10/31/24 06:31 10/31/24 06:31 10/31/24 06:31 Lab Results Blood Type / Crossmatch: No Data to Display Complete Blood Count: No Data to Display Complete Metabolic Panel: Hemoglobin A1c 6.2 % (4.5-5.7) H 10/24/24 15:52 Liver Function Panel: No Data to Display Coagulation Panel: No Data to Display Cardiac Panel: No Data to Display Arterial Blood Gas: No Data to Display Venous Blood Gas: No Data to Display Pancreas Panel: No Data to Display Thyroid Panel: No Data to Display Infectious Disease: No Data to Display Blood Cultures: No Data to Display Toxicology Panel: No Data to Display Imaging and Studies Imaging and Studies Study information below may be from another EMR and interpreted by another provider. Please see original notes in EMR for more complete details. EKG Summary: 06/03/24 Conclusion Sinus rhythm Prolongued QTc No STEMI Anesthesia Assessment and Plan Anesthesia History Personal History: PONV Family History: No Family History of Anesthesia Complications Exercise Tolerance Exercise Tolerance: Metabolic Equivalents>4 Pertinent Negatives Pertinent Negatives: No Symptoms of GERD, No Major Cardiovascular Symptoms or Complaints and No Major Pulmonary Symptoms or Complaints Cardiac & Pulmonary Exam Cardiac Exam: Normal S1/S2 Heart Sounds Pulmonary Exam: Clear Bilateral Breath Sounds Implantable Cardiac Device Does patient have a Pacemaker or an ICD?: No Airway Exam Known Difficult Airway: No Mallampati Class: 2 Mouth Opening: Narrow (< 3cm) Thyromental Distance: Greater than 3 cm Neck Range of Motion: Full ROM Neck Circumference: Normal Teeth Condition: Normal Dentition ASA Classification ASA Score: ASA 3 Emergency Case?: No NPO Status NPO Status: NPO Clears >2 hours, Solids >8 hours Anesthesia Plan Resuscitation Status: Full Code Anesthesia Technique: General Anesthesia Airway Planned: Natural Airway Monitors Used: Standard Monitors Preoperative Comments:: Blood sugar 100
[2024-10-31 07:23] VITALS: BMI 23.1
--- NOTE | 2024-10-31 07:58 | BOWEL_PTH ---
PATIENT: Lorenza Walters LOC: [facility] U#:[id number] AGE/SX: 74/F ROOM: RE10/31/[address]: Edwin Armas : 1950 BED: DIS: 10/31/2024 SPEC #: [id number] RECD: 10/31/24 12:57 STATUS: JOHNNA RE #: [id number] JENA: 10/31/24 07:[address]: Edwin Armas DEPT: Surgical Specimen RECD BY: Una Tuttle ENTERED: 10/31/24 12:57 SP TYPE: Bowel OTHR DR: Izzy Oropeza APRN Tissues: 1 - BIOPSY BOWEL Procedures: GROSS AND MICRO LEVEL 4 Comments: [id number]
[2024-10-31 08:10] VITALS: BP 110/70; PULSE 77; TEMP 36.6; O2SAT 94
--- NOTE | 2024-10-31 08:23 | PDOC.DSDIS_ITS ---
Date of service: 10/31/24 Discharge Plan Disposition Patient Disposition: Home Condition: Good Discharge Details Attending Provider: Edwin Armas Primary Care Provider: Izzy Oropeza Home Meds and New Rx's Prescriptions: No Action valacyclovir 1 gram tablet 2,000 mg PO BID PRN (Reason: cold sores) Qty: 28 1RF Rx Instructions: take 2 tablets at onset on symptoms and repeat once, 12 hours later atorvastatin 20 mg tablet 20 mg PO QHS Qty: 90 3RF bupropion HCl 300 mg tablet extended release 24 hr 300 mg PO QAM Qty: 90 3RF levothyroxine 75 mcg tablet 75 mcg PO . Qty: 40 3RF levothyroxine 88 mcg tablet 88 mcg PO . Qty: 45 3RF Rx Instructions: Dose change 2023 losartan 100 mg tablet 100 mg PO DAILY Qty: 90 3RF Rx Instructions: Dose reduction to 50mg daily 05/18/24 for BP <140/90 omeprazole 20 mg capsule,delayed release(DR/EC) 20 mg PO .daily in AM Qty: 90 3RF Rx Instructions: Take on empty stomach, alternating with 40mg Creon 36,000-114,000- 180,000 unit capsule,delayed release(DR/EC) 3 cap PO TID Rx Instructions: administer with meals and/or snacks (DME) blood sugar diagnostic Strip See Rx Instructions .Route Rx Instructions: As directed One Touch Verio system 3 times a day (DME) lancets 30 gauge misc See Rx Instructions .Route Rx Instructions: use one three times a day (DME) insulin syringes (disposable) 1 mL syringe See Rx Instructions .Route Rx Instructions: use one syringe 3 times a day (DME) FreeStyle Vernon 2 [place] Misc See Rx Instructions .Route Qty: 1 0RF Rx Instructions: As directed, DX E11.65 polyethylene glycol 3350 17 gram/dose powder 238 g PO ONCE Qty: 238 0RF Rx Instructions: take per colonoscopy instructions bisacodyl [Dulcolax (bisacodyl)] 5 mg tablet,delayed release (DR/EC) 5 mg PO ONCE Qty: 4 0RF Rx Instructions: take per colonoscopy instructions (DME) pen needle, diabetic [Easy Comfort Pen [place]] 31 gauge x 3/16 needle See Rx Instructions .Route Qty: 100 3RF Rx Instructions: Use on needle with insulin pen daily. DX: E11.9. Keep A1c below 7. Please fill with what insurance will cover insulin glargine [Lantus Solostar U-100 Insulin] 100 unit/mL (3 mL) insulin pen See Rx Instructions .ROUTE .COMPLEX Qty: 15 3RF Dose Instruction: INJECT 10 UNITS UNDER THE SKIN DAILY Rx Instructions: INJECT 10 UNITS UNDER THE SKIN DAILY (DME) FreeStyle Vernon 2 Sensor Kit See Rx Instructions .ROUTE .COMPLEX Qty: 12 1RF Dose Instruction: USE DIRECTED TO MEASURE BLOOD SUGAR Rx Instructions: USE DIRECTED TO MEASURE BLOOD SUGAR acetaminophen [Tylenol Extra Strength] 500 mg tablet 500 mg PO Q6H PRNQty: 90 0RF amlodipine 2.5 mg tablet 2.5 mg PO HS Discharge Instructions Additional Instructions: A small polyp was found and removed today. To get sent to pathology. It is nothing to worry about but it may necessitate you coming back again in 3 years. Otherwise everything else looks good and healthy. We will call you after the pathology gets resulted to decide the next colonoscopy date. Activity:: Activity as Tolerated Diet:: As Tolerated Discharge Orders Discharge Orders: Discharge Order (Routine); Ordered 10/31/24 Ordered By: Edwin Armas
--- NOTE | 2024-10-31 08:23 | W.PM.OP ---
Operative Note Operative Note Refer to Anesthesia Record Procedure Description: PROCEDURES PERFORMED: 1. Colonoscopy with cold forceps polypectomy 2. PREOPERATIVE DIAGNOSIS: Surveillance colonoscopy, sessile serrated polyps POSTOPERATIVE DIAGNOSIS: Colon polyps SURGEON: Rodriguez Armas MD INDICATION for procedure: The patient is a 74-year-old woman who has a history of sessile serrated polyps. She has no symptoms. FINDINGS: Normal terminal ileum. In the ascending colon a small 2 to 3 mm polyp was removed cold forceps technique. No obvious diverticular disease. No significant hemorrhoid disease. SURVEILLANCE interval/FOLLOW-UP: 3 - 5 yrs pending path results of the polyp SPECIMENS: yes EBL: Minimal COMPLICATIONS: None QUALITY of prep: Excellent Procedure in detail: The patient gave written consent and was in agreement with the indications, the potential risks as well as the benefits of the procedure. They were taken to the endoscopy suite and laid in the left lateral decubitus position. A timeout was performed and anesthesia was administered which was tolerated well. I started the procedure. Digital rectal and visual examination was performed and grossly within normal limits. A well-lubricated flexible colonoscope was then introduced and passed without any notable difficulty all the way to the cecum identified by the ileocecal valve and the appendiceal orifice. The scope was then slowly withdrawn with the above-noted findings. The patient tolerated the procedure well and was taken to the PACU in hemodynamically stable condition. Date of Procedure: 10/31/24
[2024-10-31 08:39] VITALS: BP 132/96; PULSE 68; RESP 18; TEMP 36.5; O2SAT 100
--- NOTE | 2024-10-31 08:51 | W.ANESPOSTOP ---
Postoperative Evaluation Date, Time and Location Date Performed: 10/31/24 Time Performed: 08:10 Patient Location: Day Surgery Unit Vital Signs Most Recent Imported Vital Signs: Most Recent Vital Signs Temp Pulse Resp BP Pulse Ox 36.6 C 77 18 110/70 94 10/31/24 08:10 10/31/24 08:10 10/31/24 06:31 10/31/24 08:10 10/31/24 08:10 Pain Score Most Recent Pain Score: Most Recent Pain Score Pain Level 0 10/31/24 08:10 Assessment Mental Status: Awake (Alert & Oriented to Patient Baseline) Airway and Respiratory Function: Patent airway with normal (patient baseline) respiratory exam Cardiovascular Function: Hemodynamically Stable Hydration Status: Adequately Hydrated Nausea & Vomiting: No Nausea or Vomiting Pain: Pt. Denies Any Pain Peripheral Nerve Block: Patient did not receive a nerve block
== END 2024-10-31 09:05 | disposition home or self-care (01) ==
PROVIDERS: PCP Nurse Practitioner Adult Health; Visit Provider Student in an Organized Health Care Education/Training Program
PROC: 0DJD8ZZ Inspection of Lower Intestinal Tract, Via Natural or Artificial Opening Endoscopic (ICD-10-PCS; CPT 45378; principal; 2024-10-31 07:30)
DX: Z12.11 Encounter for screening for malignant neoplasm of colon (principal); D12.2 Benign neoplasm of ascending colon
CPT/HCPCS: 45380; 00123; 88305; J2405; J2704

== ENCOUNTER 2024-12-23 00:11 | Outpatient (CLI) | payer MEDICARE, SELFPAY ==
--- NOTE | 2024-12-23 | DI.CT_ITS ---
Exam(s) CT CHEST W EXAM: CT CHEST W CLINICAL HISTORY: H/O PANCREATIC CA, S/P WHIPPLE, RE-EVAL LUNG NODULES, C25.0. TECHNIQUE: Multi planar reconstructions were performed. CONTRAST MATERIAL: Omnipaque 350; 70 cc COMPARISON: CT CT CHEST/ABD/PEL W from 08/28/[address] CHEST/ABD/PEL W from 09/21/2024 FINDINGS: CHEST: LUNGS: In the right upper lobe there is noncalcified nodule measuring 4 mm. This appears to have inc reased in size by approximately 1 mm when compared to the prior study of September 2024. There are no other significant right lung findings. There are no significant left lung findings. There are no p leural effusions. No significant new focal findings in the trachea and mainstem bronchi. MEDIASTINUM: There is no hilar nor mediastinal adenopathy. CARDIAC: Heart size is normal. There is no pericardial effusion.Diameter of the ascending thoracic a raf is upper normal. There is no evidence of aortic dissection. VISUALIZED UPPER ABDOMEN:There are no significant adrenal masses. OSSEOUS: No significant osseous lesions.No new fractures evident.. IMPRESSION: 1. There is a noncalcified 4 millimeter nodule in the right upper lobe which appears to have slightly increased in size by approximately 1 mm when compared to the CT scan of September 2024. This may be concerning given the abdominal history here. Close follow-up recommended. There are no other concer jaziel lung nodules. 2. No infiltrates nor pleural effusions nor intrathoracic adenopathy RADIATION DOSE DELIVERED: 94.73mGy.cm Total DLP DATA REPOSITORY: All CT scans at this facility are submitted to the National Radiology Data Registry (NRDR) Dose Index Registry (DIR) with the [employer] (ACR). RADIATION OPTIMIZATION: All CT scans at this facility use at least one of these dose optimization te chniques: automated exposure control; mA and/or kV adjustment per patient size (includes targeted exa ms where dose is matched to clinical indication); or iterative reconstruction.
[2024-12-23 10:07] LABS: Abs Immature Grans 0.01 10^3/uL (0.0-0.06); Absolute Basophil Count 0.04 10^3/uL (0.0-0.2); Absolute Eosinophil Count 0.18 10^3/uL (0.0-0.7); Absolute Lymphocyte Count 1.69 10^3/uL (1.2-3.4); Absolute Monocyte Count 0.45 10^3/uL (0.1-0.8); Absolute Neutrophil Count 3.47 10^3/uL (1.2-6.7); Basophils % 0.7 %; Eosinophils % 3.1 %; Immature Grans % 0.2 %; Lymphocytes % 28.9 %; MCH 32.1 pg (27.0-33.0); MCHC 34.1 % (32.0-36.0); MCV 94 fL (80-95); MPV 9.4 fL (8.0-11.0); Monocytes % 7.7 %; Neutrophils % 59.4 %; Platelet Count 276 10^3/uL (130-400); RBC 4.36 10^6/uL (3.93-5.22); RDW 12.7 % (11.7-14.6); RDW-SD 43.8 fL; WBC 5.84 10^3/uL (4.4-10.8)
[2024-12-23 10:26] LABS: Hemoglobin A1C 6.3 % (<5.7)
[2024-12-23 10:28] LABS: ALT 32 U/L (14-59); AST 25 U/L (15-37); Albumin 3.7 g/dL (3.4-5.0); Alkaline Phosphatase 93 U/L (46-116); Anion Gap 6.6 mmol/L (3-11); BUN 14 mg/dL (7-18); Bilirubin, Total 0.6 mg/dL (0.2-1.0); CO2 31.4 mmol/L (21.0-32.0); CREATININE 0.9 mg/dL (0.55-1.02); Chloride 107 mmol/L (98-107); Glucose 93 mg/dL (74-106); Potassium 3.8 mmol/L (3.5-5.1); Sodium 145 mmol/L (136-145); Total Protein 6.8 g/dL (6.4-8.2)
[2024-12-23] MEDS: Normal Saline - Diluent 50 ML VIAL IJ (10:45)
[2024-12-23] MEDS: Omnipaque 350 MG/ML 100 ML BTL IJ (10:46)
[2024-12-23 18:15] LABS: CA 19-9 13 U/mL (<35)
== END 2024-12-23 00:31 ==
LOC: DI 00:11
PROVIDERS: PCP Nurse Practitioner Adult Health; Visit Provider Internal Medicine Hematology & Oncology
DX: E11.65 Type 2 diabetes mellitus with hyperglycemia (principal); Z79.4 Long term (current) use of insulin; C25.0 Malignant neoplasm of head of pancreas; R91.8 Other nonspecific abnormal finding of lung field
CPT/HCPCS: 80053; 71260; 83036; 85025; 86301; J3490

== ENCOUNTER 2025-01-26 21:14 | Outpatient (REF) | payer MEDICARE, SELFPAY ==
[2025-01-31 15:54] LABS: Histoplasma/Blastomyces Result Not Detected (NotDetected); Histoplasma/Blastomyces Value Not Detected
== END 2025-01-26 21:15 | disposition home or self-care (01) ==
LOC: LBN 21:14
PROVIDERS: PCP Nurse Practitioner Adult Health; Visit Provider Nurse Practitioner Adult Health
DX: R91.1 Solitary pulmonary nodule (principal)
CPT/HCPCS: 87449

== ENCOUNTER 2025-05-11 01:25 | Outpatient (CLI) | payer MEDICARE, SELFPAY ==
--- NOTE | 2025-05-11 | DI.CT_ITS ---
Exam(s) CT CHEST/ABD/PEL W EXAM: CT CHEST/ABD/PEL W CLINICAL HISTORY: H/O PANCREATIC CA, S/P WHIPPLE, LUNG NODULE, RESTAGING EVAL. TECHNIQUE: Imaging Protocol: Axial computed tomography images with coronal and sagittal reformatted images were created and reviewed. Computer aided detection (CAD) was utilized. CONTRAST MATERIAL: Intravenous: Omnipaque 350 Contrast volume:100 ml Oral: yes / COMPARISON: CT CT CHEST/ABD/PEL W from 09/21/[address] CHEST W from 12/23/2024 FINDINGS: CHEST: Pulmonary parenchyma: No consolidation. Increase in size of previously noted nodule in the right upper lobe, now measuring 5 millimeters compared to 4 on the previous exam. Tracheobronchial tree: No bronchiectasis. No mucous plugging.No bronchial wall thickening. Pleura: No effusion or pneumothorax. Mediastinum: Within normal limits. Pulmonary arteries: No visible emboli. Cardiovascular: No pericardial effusion. Thoracic aorta non-dilated. Bones: Unremarkable for age. No lytic or blastic lesions. No compression fractures. Soft tissues: Unremarkable. ABDOMEN and PELVIS: Liver: Normal density. No suspicious mass. Gallbladder and biliary tract: Status post cholecystectomy and Whipple procedure. Biliary stent again noted. No biliary dilatation. Pancreas: Status post Whipple procedure. Atrophic tail pancreas. Spleen: Normal. Kidneys: Normal size, contour and axis. No radiodense stones. No obstructive uropathy. No suspicious masses seen. Adrenal glands: No masses seen. Aorta: Abdominal portion non-dilated. Lymph nodes: Within normal limits. Soft tissues: Unremarkable. Bladder: Unremarkable. Bowel: No obstruction or bowel wall thickening. Appendix normal. Moderate to increased quantity of stool. Peritoneal cavity: No ascites. No focal collection. No mesenteric inflammatory response. No free air. Bones: Unremarkable for age. Reproductive organs: Unremarkable for age. IMPRESSION: Mild interval increase in size of right upper lobe nodule, now measuring 5 millimeters in diameter. No new nodules or adenopathy.. No evidence of recurrence pancreatic mass or metastatic disease in the abdomen or pelvis. RADIATION DOSE DELIVERED: 621.2mGy.cm Total DLP DATA REPOSITORY: All CT scans at this facility are submitted to the National Radiology Data Registry (NRDR) Dose Index Registry (DIR) with the [employer] (ACR). RADIATION OPTIMIZATION: All CT scans at this facility use at least one of these dose optimization techniques: automated exposure control; mA and/or kV adjustment per patient size (includes targeted exams where dose is matched to clinical indication); or iterative reconstruction.
[2025-05-11 08:16] LABS: Abs Immature Grans 0.01 10^3/uL (0.0-0.06); HCT 38.2 % (36.0-46.0); HGB 12.8 g/dL (11.2-15.7); Immature Grans % 0.2 %; MCH 31.7 pg (27.0-33.0); MCHC 33.5 % (32.0-36.0); MCV 95 fL (80-95); MPV 9.4 fL (8.0-11.0); Platelet Count 271 10^3/uL (130-400); RBC 4.04 10^6/uL (3.93-5.22); RDW 12.7 % (11.7-14.6); RDW-SD 43.9 fL; WBC 5.37 10^3/uL (4.4-10.8)
[2025-05-11] MEDS: Barium Sulfate 2% W/V-Berry Smoothie 450 ML BTL PO ×2 (08:20→08:21)
[2025-05-11 08:32] LABS: ALT 28 U/L (14-59); AST 21 U/L (15-37); Albumin 3.6 g/dL (3.4-5.0); Alkaline Phosphatase 99 U/L (46-116); Anion Gap 5.8 mmol/L (3-11); BUN 19 mg/dL (7-18); Bilirubin, Total 0.6 mg/dL (0.2-1.0); CO2 32.2 mmol/L (21.0-32.0); Calcium 8.7 mg/dL (8.5-10.1); Chloride 104 mmol/L (98-107); Estimated GFR 67.50 (mL/min/1.73m2); Glucose 103 mg/dL (74-106); Potassium 3.8 mmol/L (3.5-5.1); Sodium 142 mmol/L (136-145); Total Protein 6.6 g/dL (6.4-8.2)
[2025-05-11] MEDS: Omnipaque 350 MG/ML 100 ML BTL IJ (10:19)
[2025-05-11] MEDS: Normal Saline - Diluent 50 ML VIAL IJ (10:20)
[2025-05-12 10:55] LABS: CA 19-9 10 U/mL (<35)
== END 2025-05-11 01:45 ==
PROVIDERS: Nurse Practitioner Family; PCP Nurse Practitioner Adult Health; Visit Provider Internal Medicine Hematology & Oncology
DX: C25.0 Malignant neoplasm of head of pancreas (principal)
CPT/HCPCS: 74177; 80053; 71260; 85025; 86301; J3490

== ENCOUNTER 2025-05-13 10:01 | Emergency (ER) | payer MEDICARE, SELFPAY ==
[2025-05-13 10:05] VITALS: BP 131/95; PULSE 85; RESP 18; TEMP 36.6; O2SAT 99
--- NOTE | 2025-05-13 10:14 | W.ED.GENAD ---
Discharge Plan Disposition Patient Disposition: Home Condition: Stable Discharge Details Clinical Impression: Fracture of humeral head, left, closed, Fall, Closed head injury Primary Care Provider: Izzy Oropeza ED Provider: Teresa Thakkar Meds and New Rx's Prescriptions: New cyclobenzaprine 10 mg tablet 10 mg PO TID PRN (Reason: muscle spasm) Qty: 10 0RF Rx Instructions: Take 1 tablet orally up to 3 times daily as needed for muscle spasm. lidocaine 5 % adhesive patch,medicated 1 patch topical DAILY Qty: 15 0RF Rx Instructions: leave on most painful area for up to 12 hrs Continued valacyclovir 1 gram tablet 2,000 mg PO BID PRN (Reason: cold sores) Qty: 28 1RF Rx Instructions: take 2 tablets at onset on symptoms and repeat once, 12 hours later atorvastatin 20 mg tablet 20 mg PO QHS Qty: 90 3RF bupropion HCl 300 mg tablet extended release 24 hr 300 mg PO QAM Qty: 90 3RF levothyroxine 75 mcg tablet 75 mcg PO . Qty: 40 3RF levothyroxine 88 mcg tablet 88 mcg PO . Qty: 45 3RF Rx Instructions: Dose change 2023 losartan 100 mg tablet 100 mg PO DAILY Qty: 90 3RF Rx Instructions: Dose reduction to 50mg daily 05/18/24 for BP <140/90 amlodipine 2.5 mg tablet 2.5 mg PO HS Qty: 90 3RF mirtazapine 7.5 mg tablet See Rx Instructions .ROUTE .COMPLEX Qty: 90 0RF Dose Instruction: TAKE ONE TABLET BY MOUTH AT BEDTIME Rx Instructions: TAKE ONE TABLET BY MOUTH AT BEDTIME (DME) Vernon 3 See Rx Instructions .ROUTE .MEDSUPPLY Qty: 1 0RF Rx Instructions: As directed Creon 36,000-114,000- 180,000 unit capsule,delayed release(DR/EC) 3 cap PO TID Rx Instructions: administer with meals and/or snacks (DME) lancets 30 gauge misc See Rx Instructions .Route Rx Instructions: use one three times a day (DME) insulin syringes (disposable) 1 mL syringe See Rx Instructions .Route Rx Instructions: use one syringe 3 times a day (DME) pen needle, diabetic [Easy Comfort Pen [place]] 31 gauge x 3/16 needle See Rx Instructions .Route Qty: 100 3RF Rx Instructions: Use on needle with insulin pen daily. DX: E11.9. Keep A1c below 7. Please fill with what insurance will cover insulin glargine [Lantus Solostar U-100 Insulin] 100 unit/mL (3 mL) insulin pen See Rx Instructions .ROUTE .COMPLEX Qty: 15 3RF Dose Instruction: INJECT 10 UNITS UNDER THE SKIN DAILY Rx Instructions: INJECT 10 UNITS UNDER THE SKIN DAILY acetaminophen [Tylenol Extra Strength] 500 mg tablet 500 mg PO Q6H PRNQty: 90 0RF Discharge Instructions Instructions: Minor Head Injury, Adult ED, Upper Arm Fracture ED Additional Instructions: At this time it does appear you have a fracture to the top part of your humerus which is also known as the humeral head. Please keep the shoulder immobilizer in place except for bathing. [facility] should call you Thursday morning to make an appointment. I did consult with Dr. Gomez who is aware and was able to view the x-rays. You may place the lidocaine patch to the shoulder area and remove for 12 hours. Take the muscle relaxers as directed these may make you sleepy. Please take Tylenol or Ibuprofen with food every 4-6 hours as needed for pain and swelling. You will be very sore! The Dermabond or tissue adhesive to the cut on your forehead will start to slough off on its own in approximately 4 to 6 days. Follow up with orthopedic provider in 3-5 days. Return to ED sooner if any worsening headache not relieved by Tylenol or ibuprofen, confusion, vomiting, trouble breathing, chest pain, signs of infection to the wound on your forehead, or concerns. Thank you for allowing us to care for you today. Referrals: Pete Gomez MD [ [facility] STAFF PHYSICIAN, Orthopaedic Surgical] - 5 days Referral Note: ER follow up Clinical Impression: Fracture of humeral head, left, closed Discharge Data Discharge Date/Time-TO BE ENTERED AT DEPARTURE: 05/13/25 12:52 HPI General Mode of arrival: wheelchair. Date/Time Provider Initiated Documentation: 05/13/25 10:02. Limitations to Documentation: no limitations. Information obtained by: patient, family, RN notes reviewed and old records reviewed. HPI Narrative: 74-year-old female presents to the ER with a chief complaint of left shoulder and arm pain left hip pain and abrasion to her left forehead after being pulled down by a beagle this morning just prior to arrival. No loss of consciousness. She is not on any blood thinners. No obvious deformity, distal CMS is intact. Pelvis is stable with compression, lung sounds are equal bilaterally no midline C-spine tenderness. Patient is a diabetic, is insulin-dependent, history of hypothyroidism hypertension high cholesterol, Lyme radialis history of DVT migraines neuropathy. Related Data Home Medications ?Medication ?Instructions ?Recorded ?Confirmed acetaminophen 500 mg tablet 500 mg PO Q6H PRN #90 tabs 05/22/21 05/13/25 (Tylenol Extra Strength) insulin syringes (disposable) 1 mL 03/24/23 05/13/25 lancets 30 gauge 03/24/23 05/13/25 valacyclovir 1 gram tablet 2,000 mg (2 x 1 gram) PO BID PRN 05/18/24 05/13/25 cold sores #28 tabs losartan 100 mg tablet 100 mg PO DAILY #90 tabs 06/15/24 05/13/25 pen needle, diabetic 31 gauge x #100 ea 06/15/24 05/13/25/16 (Easy Comfort Pen [place]) atorvastatin 20 mg tablet 20 mg PO QHS #90 tabs 07/25/24 05/13/25 bupropion HCl 300 mg 24 hr tablet, 300 mg PO QAM #90 tabs 07/25/24 05/13/25 extended release levothyroxine 75 mcg tablet 75 mcg PO .-W- #40 tab-caps 07/25/24 05/13/25 levothyroxine 88 mcg tablet 88 mcg PO .Y-DO-Cwm-Thu #45 07/25/24 05/13/25 tab-caps insulin glargine 100 unit/mL (3 See Rx Instructions .Route 09/07/24 05/13/25 mL) subcutaneous pen (Lantus .COMPLEX #15 mL Solostar U-100 Insulin) [id number] 3 cap PO TID 10/24/24 05/13/25 36,000-114,000-180,000 unit capsule,delay rel (Creon) Vernon 3 #1 ea 01/30/25 05/13/25 amlodipine 2.5 mg tablet 2.5 mg PO HS #90 tabs 01/30/25 05/13/25 mirtazapine 7.5 mg tablet See Rx Instructions .Route 01/30/25 05/13/25 .COMPLEX #90 tabs cyclobenzaprine 10 mg tablet 10 mg PO TID PRN muscle spasm #10 05/13/25 tabs lidocaine 5 % topical patch 1 patch topical DAILY #15 ea 05/13/25 Previous Rx's ?Medication ?Instructions ?Recorded acetaminophen 500 mg tablet 500 mg PO Q6H PRN #90 tabs 05/22/21 (Tylenol Extra Strength) valacyclovir 1 gram tablet 2,000 mg (2 x 1 gram) PO BID PRN 05/18/24 cold sores #28 tabs losartan 100 mg tablet 100 mg PO DAILY #90 tabs 06/15/24 pen needle, diabetic 31 gauge x #100 ea 06/15/2401/01 (Easy Comfort Pen [place]) atorvastatin 20 mg tablet 20 mg PO QHS #90 tabs 07/25/24 bupropion HCl 300 mg 24 hr tablet, 300 mg PO QAM #90 tabs 07/25/24 extended release levothyroxine 75 mcg tablet 75 mcg PO .M-W-F #40 tab-caps 07/25/24 levothyroxine 88 mcg tablet 88 mcg PO .J-HZ-Hga-[place] #45 07/25/24 tab-caps insulin glargine 100 unit/mL (3 See Rx Instructions .Route 09/07/24 mL) subcutaneous pen (Lantus .COMPLEX #15 mL Solostar U-100 Insulin) Vernon 3 #1 ea 01/30/25 amlodipine 2.5 mg tablet 2.5 mg PO HS #90 tabs 01/30/25 mirtazapine 7.5 mg tablet See Rx Instructions .Route 01/30/25 .COMPLEX #90 tabs cyclobenzaprine 10 mg tablet 10 mg PO TID PRN muscle spasm #10 05/13/25 tabs lidocaine 5 % topical patch 1 patch topical DAILY #15 ea 05/13/25 Allergies Allergy/AdvReac Type Severity Reaction Status Date / Time hydrocodone (From Vicodin) AdvReac Intermediate Nausea and Verified 05/13/25 10:11 vomiting oxycodone (From Percocet) AdvReac Intermediate nausea and Verified 05/13/25 10:11 vomitting General Stated Complaint: Fall/Non TraumaCriteria SARA: 3 Review of Systems All systems reviewed & are unremarkable except as noted in HPI and below Constitutional Constitutional: Reports as per HPI and Denies headache(s) Eyes Eyes: Denies loss of vision ENT Ears, Nose, Mouth, and Throat: Denies dizziness and Denies headache(s) Cardiovascular Cardiovascular: Denies chest pain, Denies chest pain at rest, Denies syncope, Denies dyspnea on exertion and Denies orthopnea Respiratory Respiratory: Denies chest congestion, Denies cough, Denies hemoptysis and Denies dyspnea on exertion Musculoskeletal Musculoskeletal: Denies numbness Integumentary/Breasts Skin/Breast: Reports as per HPI and Reports wounds (Left frontal scalp punctate abrasion. Small venous ooze noted.) Neurologic Neurologic: Denies confusion, Denies dizziness, Denies syncope, Denies headache(s), Denies localized weakness, Denies loss of vision, Denies numbness and Denies other visual disturbances Psychiatric Psychiatric: Denies confusion Exam Narrative Exam Narrative: General: Well Developed, Awake and Alert, conversant. Appears to be uncomfortable. Complaining of nausea and feeling as if she is going to pass out. Skin: Warm and Dry HEENT: Head: No palpable deformities, Normocephalic Eyes: Pupils PERRLA, EOM's intact. No periorbital eccymosis or step off Ears: Canal patent. No contreras's sign, no hemptympanum. Nose/Face: Left superficial abrasion, bleeding controlled to the frontal forehead, facial bones nontender to palpation and stable with manipulation. Mouth/Throat: No intraoral trauma. Teeth and mandible are intact. Neck: No midline tenderness, no step off, no deformity to palpation of C-spine. Trachea midline. Chest: No surface trauma. Nontender without crepitus or deformity. Lungs clear to ausculatation bilaterally. Heart: RRR, no rubs, murmurs or gallop. Abdomen: No abrasions, ecchymosis, or surface trauma. Nondistended. Nontender to palpation no guarding, rebound, or rigidity. Pelvis: Nontender to palpation and stable to compression. Femoral pulses strong and equal Extremities: Complaining of left upper arm and shoulder pain. small superficial abrasion noted to left knee, sensation intact. Peripheral pulses intact and equal. Neuro: ANO x4, GCS 15, cranial nerves II through XII intact. Motor and sensory exam nonfocal. Course Vital Signs Vital signs: Vital Signs Temperature 36.6 C 05/13/25 10:05 Pulse 85 05/13/25 10:05 Respiratory Rate 18 05/13/25 10:05 Blood Pressure 131/95 H 05/13/25 10:05 Pulse Oximetry 99 05/13/25 10:05 Temperature 36.6 C 05/13/25 10:05 Temperature Source Oral 05/13/25 10:05 Pulse 85 05/13/25 10:05 Respiratory Rate 18 05/13/25 10:05 Blood Pressure 131/95 H 05/13/25 10:05 Blood Pressure Position Sitting 05/13/25 10:05 Pulse Oximetry 99 05/13/25 10:05 Oxygen Delivery Method Room Air 05/13/25 10:05 Oxygen Flow Rate 0 05/13/25 10:05 Pain Level 10 05/13/25 10:05 Medical Decision Making 74-year-old female presents to the ER with a chief complaint of left shoulder and arm pain left hip pain and abrasion to her left forehead after being pulled down by a beagle this morning just prior to arrival. No loss of consciousness. She is not on any blood thinners. No obvious deformity, distal CMS is intact. Pelvis is stable with compression, lung sounds are equal bilaterally no midline C-spine tenderness. Patient is a diabetic, is insulin-dependent, history of hypothyroidism hypertension high cholesterol, Lyme radialis history of DVT migraines neuropathy. IV, Zofran 4 mg ordered, 25 mics of fentanyl x-rays of left shoulder and humerus ordered. No loss of consciousness no blood thinners at this time CT head is deferred. Will continue to observe. X-rays show a comminuted humeral head fracture slightly displaced, discussed results with patient and family. All their questions were answered to the best of my ability. They verbalized understanding. Will place patient in a cuff and collar or shoulder immobilizer clean wound on forehead with chlorhexidine apply some Dermabond. Given additional 25 mics of fentanyl, Flexeril tablet here and Flexeril to go. Given strict return instructions, follow-up care, and placed on care management list. Patient discharged into the care per family. This text was generated using [employer] system, please disregard any oddities of phrase or misspellings. Medical Records Medical records reviewed: Yes I reviewed the patient's medical records. Imaging Data Radiologic Study: Attestation: I personally reviewed and interpreted this imaging study as follows: (Left comminuted humeral head fracture slightly displaced) Imaging: X-Ray Radiologist's impression: PROCEDURE INFORMATION: Exam: XR Left Shoulder Exam date and time: 05/13/2025 11:02 AM Age: 74 years old Clinical indication: Other: Fall TECHNIQUE: Imaging protocol: Radiologic exam of the left shoulder. Views: 2 or more views. COMPARISON: CT CHEST/ABD/PEL W 05/11/2025 10:11 AM FINDINGS: Bones/joints: Bony structures are osteopenic. There is a comminuted impacted fracture of the left humeral neck. The greater tuberosity is a separate fragment. Scapula and the visualized left upper ribs appear intact. Lungs: The visualized left lung is grossly clear Soft tissues: There is apparent soft tissue swelling adjacent to the proximal humerus. IMPRESSION: Impacted mildly comminuted fracture left humeral neck. Thank you for allowing us to participate in the care of your patient. Dictated and Authenticated by: Ayesha Irene MD [facility] All Active Problems (Updated 05/13/25 @ 12:31 by Teresa Thakkar NP) Closed head injury (Acute) Fall (Acute) Fracture of humeral head, left, closed (Acute) Situational anxiety (Acute ~01/2025) Resumed rach Lung nodule (Acute) 12/23/[address] Wren. Right upper lobe there is noncalcified nodule measuring 4mm. This appears to have increased in size by approximately 1 mm when compared to the prior study of September 2024. Migraine without aura, not intractable, without status migrainosus (Acute) [facility] GERD (gastroesophageal reflux disease) (Chronic) restarted PPI 2023 History of chemotherapy (Acute) completed in August, (Pancreatic Ca, s/p Whipple Procedure) Adjustment disorder with depressed mood (Acute ~04/2023) Type 2 diabetes mellitus with hyperglycemia, with long-term current use of insulin (Acute) s/p pancreatic cancer[place] [facility] [place] Adenocarcinoma of pancreas (Acute ~09/2022) Osteoporosis of forearm (Chronic ~05/09/22) started alendronate 04/2022 Hyperlipidemia (Acute) Hypothyroidism (Chronic) s/p thyroidectomy--lifetime replacement History of tobacco use (Acute) Essential hypertension (Chronic) Varicose veins of both lower extremities (Acute) Medical History (Updated 05/13/25 @ 12:31 by Teresa Thakkar NP) Combined forms of age-related cataract, bilateral (~08/2023) [place] 09/16/23 Carpal tunnel syndrome of right wrist Ulnar neuropathy at elbow of right upper extremity Rotator cuff tear, right [place] syndrome (~2023) s/p PT, MRI & Neuro Sessile serrated polyp of colon (~10/2024) Lyme borreliosis (~05/2024) Elevated MCV folate & B12 normal Hypokalemia [facility] 07/01/24 Neuropathy Chemo-related likely; LT gabap[place] 100mg HS [place] [place] Left leg DVT (~10/2022) [facility] [place] Apix Depression, major, recurrent, mild (~10/2021) Citalopram discont secondary to interaction with chemo 09/2022 Diverticulosis (~01/2021) PONV (postoperative nausea and vomiting) Pt. states she gets violently ill r/t anesthesia. Stated with previous colonoscopy she was okay Does well with Scopolamine patch High grade dysplasia in colonic adenoma Migraine Surgical History (Updated 01/30/25 @ 10:57 by Izzy Oropzea NP) S/P cataract surgery (~2022) [place] [facility] [place] with Lymphadenectomy of multiple abdominal nodes. S/P ERCP (02/02/23[place] [facility] [place] into common bile duct Status post arthroscopy of right shoulder (~2020) History of bilateral ligation of fallopian tubes Status post phlebectomy Status post thyroidectomy s/p suspicious bx Status post tonsillectomy H/O flexible sigmoidoscopy H/O colonoscopy (~10/2024) Family History Mother , 75 Diabetes Essential hypertension Alzheimer disease Hyperlipidemia Father , 72 Diabetes Essential hypertension Depression Hyperlipidemia Neoplasm LIVER Liver cancer Brother Essential hypertension Lung cancer Throat cancer Brother Essential hypertension Depression Heart disease Maternal Grandfather , 72 No problems noted. Paternal Grandfather No problems noted. Maternal Grandmother , 50 Heart disease Paternal Grandmother , 69 No problems noted. Brother Essential hypertension Depression Brother Depression Heart disease Maternal Aunt Breast cancer Social History Smoking/Tobacco Use Status: Former Tobacco Use Quit Date: 10/19/99 Pack-years: 15 Tobacco: How many years used: 10 Quit status: quit date established Second Hand Exposure: Yes Smoking risk assessment performed?: Yes Alcohol Intake: current Alcohol Intake frequency: a few times a month Alcohol type: beer, wine and hard liquor Drug use: Never Substance use type: does not use Adopted: No Caregiver/Support person: No Foster care: No Household members: spouse Housing: house Number of Children: 3 number of grandchildren: 4 Communication Needs: Hard of Hearing and Corrective Lenses Education Level: high school Do you need help understanding health information?: Rarely 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 [employer] Pets and animals: Yes Pets and animals: dog(s) Sexually active: No Do you think of yourself as: straight/heterosexual Current gender identity: female What is your relationship status?: How often do you talk on the phone with friends or family?: three or more times per week How often do you get together with friends or relatives?: once per week How often do you attend methodist or confucianism services?: 1-3 times per year Do you belong to any clubs or organized social groups?: no Panel score (0-1 are the most socially isolated patients): 2 What type of physical activity do you participate in: walking Duration: 15-30 minutes/day Frequency: daily Christy/Yazidi: Sikh Special christy needs: No Seatbelt use: always Helmet use: No Drive intox or ride w/intox catering truck driver: No Do you feel safe at home: Yes Do you feel safe in your relationship?: Yes
--- NOTE | 2025-05-13 10:15 | DI.RAD_ITS ---
Exam(s) XR SHOULDER LT COMPLETE 2+V XR HUMERUS LT EXAM: XR SHOULDER LT COMPLETE 2+V CLINICAL HISTORY: Fall. TECHNIQUE: 2D digital imaging was performed. Eight views. COMPARISON: MR MR UPPER JOINT RT WO from 06/10/2024 CR,XR XR HUMERUS LT from 05/13/2025 FINDINGS: BONES: There is a mildly comminuted fracture of the humeral neck/head with the greater tuberosity fractured as a separate fragment. There is significant impaction. No additional fractures are seen more distally in the humerus or elsewhere in the shoulder or visualized ribs. No bony destructive lesion is seen. JOINTS: No dislocation present. SOFT TISSUE: Normal. IMPRESSION: Mildly comminuted impacted humeral neck fracture. DATA REPOSITORY: RADIATION DOSE DELIVERED:
[2025-05-13] MEDS: Ondansetron 4 MG/2 ML VIAL IVP (10:37)
[2025-05-13] MEDS: fentaNYL 100 MCG/2 ML VIAL 25 MCG IVP ×2 (10:37→11:57)
[2025-05-13] MEDS: Lidocaine 5% Patch 1 PATCH TP (11:57)
[2025-05-13] MEDS: Cyclobenzaprine 10 MG TAB PO (11:57)
--- NOTE | 2025-05-13 12:17 | DI.VRAD_ITS ---
PROCEDURE INFORMATION: Exam: XR Left Shoulder Exam date and time: 05/13/2025 11:02 AM Age: 74 years old Clinical indication: Other: Fall TECHNIQUE: Imaging protocol: Radiologic exam of the left shoulder. Views: 2 or more views. COMPARISON: CT CHEST/ABD/PEL W 05/11/2025 10:11 AM FINDINGS: Bones/joints: Bony structures are osteopenic. There is a comminuted impacted fracture of the left humeral neck. The greater tuberosity is a separate fragment. Scapula and the visualized left upper ribs appear intact. Lungs: The visualized left lung is grossly clear Soft tissues: There is apparent soft tissue swelling adjacent to the proximal humerus. IMPRESSION: Impacted mildly comminuted fracture left humeral neck. Dictated and Authenticated by: Ayesha Irene MD. Orderin Ariane Moore MD
--- NOTE | 2025-05-13 12:18 | DI.VRAD_ITS ---
PROCEDURE INFORMATION: Exam: XR Left Humerus Exam date and time: 05/13/2025 11:10 AM Age: 74 years old Clinical indication: Other: Fall TECHNIQUE: Imaging protocol: Radiologic exam of the left humerus. Views: 2 or more views. COMPARISON: CR XR SHOULDER LT COMPLETE 2+V 05/13/2025 11:02 AM FINDINGS: Bones/joints: Bony structures are osteopenic. As seen on shoulder films there is an impacted mildly comminuted fracture of the proximal left humerus. The greater tuberosity is a separate fracture fragment. There is no evidence of fracture of the distal humerus. Soft tissues: There is soft tissue swelling adjacent to the proximal humerus IMPRESSION: Impacted fracture left humeral neck with mild comminution of the humeral head Dictated and Authenticated by: Ayesha Irene MD. Orderin Ariane Moore MD
== END 2025-05-13 12:52 | disposition home or self-care (01) ==
PROVIDERS: Emergency Provider Registered Nurse Emergency; PCP Nurse Practitioner Adult Health
DX: S42.222A 2-part displaced fracture of surgical neck of left humerus, initial encounter for closed fracture (principal); S09.8XXA Other specified injuries of head, initial encounter; E11.9 Type 2 diabetes mellitus without complications; I10 Essential (primary) hypertension; E78.5 Hyperlipidemia, unspecified; E03.9 Hypothyroidism, unspecified; Z79.4 Long term (current) use of insulin; Z87.891 Personal history of nicotine dependence; W01.0XXA Fall on same level from slipping, tripping and stumbling without subsequent striking against object, initial encounter; Y93.K1 Activity, walking an animal; Y92.89 Other specified places as the place of occurrence of the external cause
CPT/HCPCS: 96374; 96375; 96376; 99284; 73030; 73060; J2405; J3010

== ENCOUNTER 2025-05-15 12:11 | Outpatient (CLI) | payer MEDICARE, SELFPAY ==
--- NOTE | 2025-05-15 11:13 | DI.CT_ITS ---
Exam(s) CT UPPER EXTREMITY LT WO EXAM: CT UPPER EXTREMITY LT WO CLINICAL HISTORY: EVAL FX, fracture humeral head lt closed, S42.292A displaced fracture TECHNIQUE: Imaging Protocol: Axial computed tomography images with coronal and sagittal reformatted images were created and reviewed. CONTRAST MATERIAL: Noncontrast COMPARISON: CR,XR XR SHOULDER LT COMPLETE 2+V from 05/13/2025 CR,XR XR HUMERUS LT from 05/13/2025 FINDINGS: Bones: Mainly transverse fracture seen through the humeral head with significant impaction. There are comminuted fragments seen posteriorly and laterally. There is lateral and superior displacement of the humeral shaft with respect to the head. No additional fractures are identified. No cellulitic or osteomyelitic changes are identified. There is no evidence of joint space narrowing or cystic degeneration seen. No lytic or sclerotic lesions are identified. Soft Tissues: Soft tissue swelling around the humeral head IMPRESSION: Comminuted, impacted fracture of humeral head/neck. RADIATION DOSE DELIVERED: Total DLP DATA REPOSITORY: All CT scans at this facility are submitted to the National Radiology Data Registry (NRDR) Dose Index Registry (DIR) with the [employer] (ACR). RADIATION OPTIMIZATION: All CT scans at this facility use at least one of these dose optimization techniques: automated exposure control; mA and/or kV adjustment per patient size (includes targeted exams where dose is matched to clinical indication); or iterative reconstruction.
== END 2025-05-15 12:31 ==
LOC: DI 12:11
PROVIDERS: PCP Nurse Practitioner Adult Health; Visit Provider Student in an Organized Health Care Education/Training Program
DX: S42.292D Other displaced fracture of upper end of left humerus, subsequent encounter for fracture with routine healing (principal); X58.XXXD Exposure to other specified factors, subsequent encounter
CPT/HCPCS: 73200

== ENCOUNTER 2025-05-23 11:34 | Outpatient (CLI) | payer MEDICARE, SELFPAY ==
--- NOTE | 2025-05-23 10:00 | DI.RAD_ITS ---
Exam(s) XR SHOULDER LT COMPLETE 2+V EXAM: XR SHOULDER LT COMPLETE 2+V CLINICAL HISTORY: F/U FRACTURE. TECHNIQUE: 2D digital imaging was performed of the left shoulder. Two images were obtained. Grashey and Y views were obtained. COMPARISON: CR,XR XR SHOULDER LT COMPLETE 2+V from 05/13/2025 FINDINGS: BONES: There does not appear to be any significant change in alignment of the impacted comminuted fracture of the proximal left humerus. No bony destructive lesion is seen. JOINTS: No dislocation present. The acromioclavicular joint appears unremarkable. Now appears to be mild inferior subluxation of the humeral head relative to the glenoid. SOFT TISSUE: Normal. IMPRESSION: Comminuted impacted proximal left humeral fracture. New mild inferior subluxation of the humeral head relative to the glenoid. DATA REPOSITORY: RADIATION DOSE DELIVERED:
== END 2025-05-23 11:35 | disposition home or self-care (01) ==
LOC: DIORS 11:34
PROVIDERS: PCP Nurse Practitioner Adult Health; Referring Provider Nurse Practitioner Adult Health; Visit Provider Student in an Organized Health Care Education/Training Program
DX: S42.292A Other displaced fracture of upper end of left humerus, initial encounter for closed fracture (principal); W19.XXXA Unspecified fall, initial encounter; Y93.K9 Activity, other involving animal care; E11.9 Type 2 diabetes mellitus without complications
CPT/HCPCS: 99214; 73030

== ENCOUNTER 2025-06-06 14:24 | Outpatient (CLI) | payer MEDICARE, SELFPAY ==
--- NOTE | 2025-06-06 14:15 | DI.RAD_ITS ---
Exam(s) XR SHOULDER LT COMPLETE 2+V EXAM: XR SHOULDER LT COMPLETE 2+V INDICATION: F/U FRACTURE. COMPARISON: CR,XR XR SHOULDER LT COMPLETE 2+V from 05/13/2025 CR XR SHOULDER LT COMPLETE 2+V from 05/23/2025 TECHNIQUE: 2D digital imaging was performed. Two views. FINDINGS: The alignment of the comminuted proximal humeral fracture appears unchanged given differences in technique. Mild interval healing. The mild inferior subluxation is unchanged. DATA REPOSITORY: RADIATION DOSE DELIVERED:
== END 2025-06-06 14:25 | disposition home or self-care (01) ==
LOC: DIORS 14:24
PROVIDERS: PCP Nurse Practitioner Adult Health; Referring Provider Nurse Practitioner Adult Health; Visit Provider Student in an Organized Health Care Education/Training Program
DX: S42.292A Other displaced fracture of upper end of left humerus, initial encounter for closed fracture (principal); X58.XXXA Exposure to other specified factors, initial encounter
CPT/HCPCS: 99213; 73030

== ENCOUNTER 2025-07-11 13:46 | Outpatient (CLI) | payer MEDICARE, SELFPAY ==
--- NOTE | 2025-07-11 08:30 | DI.RAD_ITS ---
Exam(s) XR SHOULDER LT COMPLETE 2+V EXAM: XR SHOULDER LT COMPLETE 2+V INDICATION: F/U FRACTURE. COMPARISON: CR,XR XR SHOULDER LT COMPLETE 2+V from 05/13/2025 CR XR SHOULDER LT COMPLETE 2+V from 05/23/2025 CR XR SHOULDER LT COMPLETE 2+V from 06/06/2025 TECHNIQUE: 2D digital imaging was performed. Two views. FINDINGS: There is stable alignment of the humeral head fracture given differences in projection There is no longer inferior subluxation at the glenohumeral joint. DATA REPOSITORY: RADIATION DOSE DELIVERED:
== END 2025-07-11 13:47 | disposition home or self-care (01) ==
LOC: DIORS 13:46
PROVIDERS: PCP Nurse Practitioner Adult Health; Referring Provider Nurse Practitioner Adult Health; Visit Provider Student in an Organized Health Care Education/Training Program
DX: S42.292D Other displaced fracture of upper end of left humerus, subsequent encounter for fracture with routine healing (principal); X58.XXXD Exposure to other specified factors, subsequent encounter
CPT/HCPCS: 99213; 73030

== ENCOUNTER 2025-08-14 03:29 | Outpatient (CLI) | payer MEDICARE, SELFPAY ==
[2025-08-14 12:37] LABS: Abs Immature Grans 0.02 10^3/uL (0.0-0.06); HCT 39.1 % (36.0-46.0); HGB 13.2 g/dL (11.2-15.7); Immature Grans % 0.3 %; MCH 32.0 pg (27.0-33.0); MCHC 33.8 % (32.0-36.0); MCV 95 fL (80-95); MPV 9.2 fL (8.0-11.0); Platelet Count 319 10^3/uL (130-400); RBC 4.13 10^6/uL (3.93-5.22); RDW 12.2 % (11.7-14.6); RDW-SD 42.3 fL; WBC 6.37 10^3/uL (4.4-10.8)
[2025-08-14 13:07] LABS: ALT 24 U/L (14-59); AST 18 U/L (15-37); Albumin 3.6 g/dL (3.4-5.0); Alkaline Phosphatase 99 U/L (46-116); Anion Gap 8.2 mmol/L (3-11); BUN 14 mg/dL (7-18); Bilirubin, Total 0.5 mg/dL (0.2-1.0); CO2 29.8 mmol/L (21.0-32.0); Calcium 8.7 mg/dL (8.5-10.1); Chloride 105 mmol/L (98-107); Estimated GFR 77.75 (mL/min/1.73m2); Glucose 175 mg/dL (74-106); Potassium 3.7 mmol/L (3.5-5.1); Sodium 143 mmol/L (136-145); Total Protein 6.8 g/dL (6.4-8.2)
[2025-08-14] MEDS: Normal Saline Flush 10 ML SYR IVP (13:33)
[2025-08-14] MEDS: Normal Saline - Diluent 50 ML VIAL IJ (13:33)
[2025-08-14] MEDS: Omnipaque 350 MG/ML 100 ML BTL IJ (13:33)
--- NOTE | 2025-08-14 13:41 | DI.CT_ITS ---
Exam(s) CT CHEST W EXAM: CT CHEST W CLINICAL HISTORY: PANCREATIC CANCER, SP WHIPPLE, LUNG NODULE ON IMAGING. TECHNIQUE: Multi planar reconstructions were performed. CONTRAST MATERIAL: Omnipaque 350; 70 cc COMPARISON: CT CT CHEST/ABD/PEL W from 05/11/2025 FINDINGS: CHEST: LUNGS: There are no confluent infiltrates nor pleural effusions. The noncalcified mildly spiculated right upper lobe lung nodule has slightly further increased in size, presently measuring 6.5 mm, previously measuring 5 mm. There are no other similar appearing nodules in either lung field. A few tiny calcified benign granulomas in the right lung are noted. MEDIASTINUM: There is no hilar nor mediastinal adenopathy. CARDIAC: Heart size is normal. There is no pericardial effusion.Caliber of the thoracic aorta is within normal limits. VISUALIZED UPPER ABDOMEN:Partially visualize gastrojejunostomy and silastic stent with in biliary enterostomy. There are no dilated intrahepatic ducts. No ascites. No obvious lymphadenopathy. No adrenal masses. No splenomegaly. OSSEOUS: No significant osseous lesions.No fractures.. IMPRESSION: 1. There has been further interval increase in the size of the previously described right upper lobe nodule which now measures 6.5 mm size, previously measuring [address] scan of 05/11/2025. There are no new additional lung nodules. No pleural effusions. No intrathoracic adenopathy evident. RADIATION DOSE DELIVERED: 133.55mGy.cm Total DLP DATA REPOSITORY: All CT scans at this facility are submitted to the National Radiology Data Registry (NRDR) Dose Index Registry (DIR) with the [employer] (ACR). RADIATION OPTIMIZATION: All CT scans at this facility use at least one of these dose optimization techniques: automated exposure control; mA and/or kV adjustment per patient size (includes targeted exams where dose is matched to clinical indication); or iterative reconstruction.
[2025-08-16 10:40] LABS: CA 19-9 17 U/mL (<35)
== END 2025-08-14 03:49 ==
LOC: DI 03:30
PROVIDERS: PCP Nurse Practitioner Adult Health; Visit Provider Nurse Practitioner Family
DX: C25.0 Malignant neoplasm of head of pancreas (principal)
CPT/HCPCS: 80053; 71260; 85025; 86301; J3490

== ENCOUNTER → 2025-08-23 02:29 | Outpatient (CLI) | payer MEDICARE, SELFPAY ==
--- NOTE | 2025-08-23 | DI.CT_ITS ---
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 RECURRENCE. TECHNIQUE: Imaging Protocol: Axial computed tomography images with coronal and sagittal reformatted images were created and reviewed CONTRAST MATERIAL: Intravenous: Omnipaque-350 75cc Oral: Yes. Oral contrast was also administered for bowel opacification. COMPARISON: CT CT CHEST/ABD/PEL W from 08/28/[address] CHEST/ABD/PEL W from 09/21/[address] CHEST/ABD/PEL W from 05/11/2025 FINDINGS: VISUALIZED LUNG BASES: No nodules nor pleural effusions evident. ABDOMEN: GI: There is no ascites. Again noted is evidence of Whipple's procedure. Eighty silastic-type stent is again noted at the bilio enterostomy. There is no evidence of bowel obstruction, free air, nor abscess. LIVER: There are no focal hepatic lesions evident. There are no dilated intrahepatic ducts. Systemic intrahepatic veins are patent as are intrahepatic portal veins. No evidence of portal vein thrombosis. GALLBLADDER/BILIARY: Gallbladder is again noted be surgically absent. PANCREAS: Most of the pancreas is surgically absent with the exception of the distal body and tail which appears unchanged from 05/11/2025. The [place] pancreatic duct at this level is not dilated and there are no peripancreatic fluid collections and there is no evidence of mass in the remaining pancreatic tail. Mild tissue haziness is noted in the ivanna hepatis region just medial to the gallbladder clips and adjacent to the common hepatic artery, unchanged from previous scans of 09/21/2024 and 05/11/25. Slightly lower down there is a single oval density measuring 11 x 8 mm, unchanged from previous and possibly representing a small lymph node. There is no gross lymphadenopathy and there is no para-aortic adenopathy. SPLEEN: Spleen is not enlarged. No obvious intrasplenic lesions. Splenic and portal veins are patent. Superior mesenteric vein is patent. No encasement Inferior mesenteric artery also patent. No encasement. ADRENALS: There are no significant adrenal masses. KIDNEYS:Left kidney unremarkable. 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 ABDOMINAL AORTA: Abdominal aorta is not enlarged. LYMPH NODES:No para-aortic adenopathy. No adenopathy around the aortic bifurcation. ABDOMINAL WALL: No evidence of significant anterior abdominal wall nor inguinal hernia. PELVIS: GI: No evidence of appendicitis.No evidence of sigmoid diverticulitis. LYMPH NODES: There is no intrapelvic nor inguinal adenopathy. REPRODUCTIVE: Age-appropriate URINARY BLADDER: No calculi nor obvious masses evident OSSEOUS: There is now some regularity in left side of the sacrum which was not evident on 05/11/2025. This may be developing osseous metastatic disease. 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 IMPRESSION: 1. Compared to the prior CT scan of 05/11/2025 there is again noted evidence of prior Whipple's procedure, including a silastic type stent across the bilio- enterostomy there is no dilatation of intrahepatic ducts. There are no new hepatic lesions. 2. The remaining pancreatic tail appears unremarkable/unchanged. 3. There is some increased density in the fat on the right side of the celiac artery and in the region of the common hepatic artery, similar to prior CT scans of 05/11/2025 and 09/21/2024 and 08/28/2023. Although this may be of significance, this appears unchanged from prior CT scans of August 2023, September 2024, and 05/11/2025. There is no gross lymphadenopathy in this region although there is a single minimally prominent unchanged 11 x 8 mm lymph node slightly lower down in the mesentery (series 18/image 63) again noted. This is also unchanged from 08/28/2023. 4.There is new osseous abnormality in the left side of the sacrum which is somewhat concerning for possible metastatic osseous disease. However, this may also be related to a subtle sacral insufficiency fracture at this level which was not previously present. RADIATION DOSE DELIVERED: 703.02mGy.cm Total DLP DATA REPOSITORY: All CT scans at this facility are submitted to the National Radiology Data Registry (NRDR) Dose Index Registry (DIR) with the [employer] (ACR). RADIATION OPTIMIZATION: All CT scans at this facility use at least one of these dose optimization techniques: automated exposure control; mA and/or kV adjustment per patient size (includes targeted exams where dose is matched to clinical indication); or iterative reconstruction.
[2025-08-23] MEDS: Barium Sulfate 2% W/V-Creamy Vanilla Smoothie 450 ML BTL PO (08:02)
[2025-08-23] MEDS: Barium Sulfate 2% W/V-Berry Smoothie 450 ML BTL PO (08:03)
[2025-08-23] MEDS: Normal Saline - Diluent 50 ML VIAL IJ (10:27)
[2025-08-23] MEDS: Omnipaque 350 MG/ML 100 ML BTL IJ (10:28)
== END ==
LOC: DI 02:30
PROVIDERS: PCP Nurse Practitioner Adult Health; Visit Provider Internal Medicine Hematology & Oncology
DX: C25.0 Malignant neoplasm of head of pancreas (principal)
CPT/HCPCS: 74177; J3490

== ENCOUNTER 2025-09-12 11:10 | Outpatient (CLI) | payer MEDICARE, SELFPAY ==
--- NOTE | 2025-09-12 09:09 | DI.RAD_ITS ---
Exam(s) XR SHOULDER LT COMPLETE 2+V EXAM: XR SHOULDER LT COMPLETE 2+V CLINICAL HISTORY: F/U FRACTURE. TECHNIQUE: 2D digital imaging was performed of the left shoulder. Two images were obtained. Grashey and Y views were obtained. COMPARISON: CR XR SHOULDER LT COMPLETE 2+V from 07/11/2025 FINDINGS: BONES: There is stable alignment of the fracture involving the proximal left humerus. The fracture line is less well visualized on the current examination suggesting interval healing. There is no new fracture. No bony destructive lesion is seen. JOINTS: No dislocation present. SOFT TISSUE: Normal. IMPRESSION: Stable alignment of the healing proximal left humeral fracture. DATA REPOSITORY: RADIATION DOSE DELIVERED:
== END 2025-09-12 11:11 | disposition home or self-care (01) ==
LOC: DIORS 11:10
PROVIDERS: PCP Nurse Practitioner Adult Health; Referring Provider Nurse Practitioner Adult Health; Visit Provider Student in an Organized Health Care Education/Training Program
DX: S42.292D Other displaced fracture of upper end of left humerus, subsequent encounter for fracture with routine healing (principal); X58.XXXD Exposure to other specified factors, subsequent encounter
CPT/HCPCS: 99213; 73030